=== PATIENT | female | born 1950 | race Caucasian/White ===

== ENCOUNTER 2022-08-06 19:06 | Observation (INO) | payer MEDICARE, SELFPAY ==
--- NOTE | ~2022-08-06 | XR_ITS ---
EXAMINATION: XR chest 1V DATE: 08/06/2022 20:37 INDICATION: Thoracic and lumbar compression fractures. TECHNIQUE: frontal view of the chest was obtained. COMPARISON: Chest radiograph dated 10/22/2015 FINDINGS: The lungs are clear with no focal airspace opacities, pulmonary edema, pleural effusion or pneumothor ax. The cardiomediastinal silhouette is normal. Change of prior vertebroplasty at L1. IMPRESSION: 1. No acute cardiopulmonary disease. Reviewed, dictated and finalized at location A. X RAY EQUIPMENT TESTER
--- NOTE | ~2022-08-06 | CT_ITS ---
EXAMINATION: CT thoracic lumbar wo con DATE: 08/06/2022 20:21 INDICATION: Multiple compression fractures presenting with lower back pain. TECHNIQUE: High resolution computed tomography (CT) of the thoracic and lumbar spine was performed wi thout intravenous contrast. Additional sagittal and coronal reconstructions were performed. Automated exposure control and iterative reconstruction technique were employed. The dose-length product was 6 17.82 mGy-cm. COMPARISON: None FINDINGS: Prominent thoracic kyphosis centered at chronic appearing T12 burst fracture with essentially complet e anterior to central vertebral body height loss and with 5 mm retropulsion which results in mild to moderate central canal stenosis. Vertebroplasty at the L1 burst fracture which depression of the post erior aspect of the superior endplate with 20% vertebral body height loss at this location as well as 3 mm retropulsion resulting in mild central canal stenosis. Chronic mild T11 compression fracture wi th 20% anterior vertebral body height loss and small Schmorl's node along the superior endplate. Manual Lathe Machinist david appearing superior central endplate compression with fractures with 40% central vertebral body he ight loss at L3 and 20% central vertebral body height loss at L5. 3 mm retrolisthesis L2 on L3 and 1- 2 mm retrolisthesis L3 on L4 resulting in mild central canal stenosis at both levels. Otherwise moder ate thoracic and lumbar spondylosis. Mild dependent atelectasis in both lungs. Heart size normal with atherosclerotic coronary artery calcific lesion. Moderate-sized sliding-type hiatal hernia. 1.7 cm c yst at the upper pole of the right kidney. IMPRESSION: 1. Multiple chronic appearing burst and compression fractures in the lumbar and lower thoracic spine as detailed above including prior vertebroplasty at L1. 2. Moderate thoracic and lumbar spondylosis. 3. Moderate-sized sliding-type hiatal hernia. Reviewed, dictated and finalized at location A. F OF SAFETY AND PROTECTION
--- NOTE | ~2022-08-06 | XR_ITS ---
EXAMINATION: XR pelvis 1-2V DATE: 08/06/2022 20:35 INDICATION: Back and posterior pelvic pain TECHNIQUE: An anteroposterior view of the pelvis was obtained. COMPARISON: None. FINDINGS: Bone alignment is normal. No fracture. Mild osteoarthritis at the bilateral hip and sacroiliac joints . Osteitis pubis. IMPRESSION: 1. 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 Reviewed, dictated and finalized at location A. RONMENTAL CONSULTANT
[2022-08-06 19:15] VITALS: BP 117/51; PULSE 83; RESP 18; TEMP 36.9; O2SAT 98
--- NOTE | 2022-08-06 20:03 | ECG_ITS ---
Measurements Intervals [place] Rate: 73 P: 26 UT: 176 QRS: 29 QRSD: 78 T: 46 QT: 386 QTc: 426 Interpretive Statements SINUS RHYTHM NO PREVIOUS ECG AVAILABLE FOR COMPARISON Electronically Signed On 08-07-2022 8:41:01 ADULT AND PEDIATRIC NEUROLOGIST by Maribel Ansari M.D.
[2022-08-06 20:53] LABS: Basophils Absolute Auto 0.1 K/mm3 (0.0-0.1); Basophils Percent Auto 0.9 % (0.2-1.2); Eosinophils Absolute Auto 0.1 K/mm3 (0-0.3); Eosinophils Percent Auto 1.9 % (0-4.4); Hematocrit 37.7 % (37.0-47.0); Hemoglobin 12.6 g/dL (12.0-15.0); Immature Granulocyte Absolute 0.02 K/mm3 (0.00-0.031); Immature Granulocyte Percent A 0.3 % (0-0.5); Lymphocytes Absolute Auto 0.97 K/mm3 (0.9-3.2); Lymphocytes Percent Auto 13.1 % (18.3-44.2); Mean Corpuscular HGB Conc 33.4 g/dl (32-36); Mean Corpuscular Hemoglobin 30.9 pg (26-34); Mean Corpuscular Volume 92.4 fl (80-100); Mean Platelet Volume 9.6 fl (7.4-10.4); Monocytes Absolute Auto 0.8 K/mm3 (0.1-0.6); Monocytes Percent Auto 10.1 % (2.6-8.5); Neutrophils Absolute Auto 5.5 K/mm3 (1.3-6.7); Neutrophils Percent Auto 73.7 % (45.5-73.1); Platelet Count Result 189 k/mm3 (150-375); Red Blood Count 4.08 M/mm3 (4.2-5.4); Red Cell Distribution Width 12.5 % (11.5-14.5); White Blood Count 7.4 K/mm3 (4.5-10.0)
[2022-08-06] MEDS: methocarbamoL 750 MG TABLET 1500 MG PO (20:55)
[2022-08-06 21:02] LABS: Alanine Aminotransferase 20 U/L (6-35); Alkaline Phosphatase 112 U/L (38-126); Anion Gap 5 mmol/L (8-16); Aspartate Amino Transferase 23 U/L (14-36); Bilirubin,Total 0.5 mg/dL (0.2-1.3); Blood Urea Nitrogen 16 mg/dL (7-17); Calcium 8.9 mg/dL (8.4-10.2); Carbon Dioxide 31 mmol/L (22-30); Chloride 97 mmol/L (98-107); Estimated CRCL calculation 40 ml/min; Estimated Glomerular Filt Rate > 60; Glucose 95 mg/dL (65-110); Magnesium 1.8 mg/dL (1.6-2.3); Potassium 3.8 mmol/L (3.4-5.0); Sodium 133 mmol/L (137-145)
[2022-08-06 21:17] LABS: Prothrombin Time 13.2 Seconds (11.1-14.7)
[2022-08-06 21:18] LABS: Partial Thromboplastin Time 24.2 SECONDS (22.3-36.8)
[2022-08-06 21:32] LABS: Influenza A QL RT-PCR Negative (Negative); Influenza B QL RT-PCR Negative (Negative); SARS-CoV-2 RNA PCR Negative
--- NOTE | 2022-08-06 22:37 | ED.GENADULT ---
HPI - General Adult General Chief complaint: Back Pain/Injury Stated complaint: SP BACK SURGERY T11/12 AND UNCONTROLLED PAIN History of Present Illness HPI narrative: This is a 72-year-old female presenting to ED with a chief complaint of back pain. Patient has had a relatively complicated course over the last month. She was originally seen at an outside hospital for back pain was found to have a compression fracture at T12. She underwent surgery and was then discharged to [facility]. Since she has been there she has had persistent back pain. Patient was placed in a TLSO brace. It does not fit well due to the patient's severe cervical curvature. Is causing the patient significant discomfort.The family went to visit the patient today and the patient was screaming in pain due to her back pain. The family then called 911 and brought the patient to our emergency room. The family are refusing to send their loved one back to that longterm. They will not take her home with them as they cannot manage her pain. patient denies weakness to the lower extremities, urinary retention, bowel incontinence, saddle anesthesia, or fever or trauma. The patient's neurosurgeon is Dr. Rainey. per the patient's family they will of are no longer agreeable to seeing Dr. Rainey by mutual accord. They are looking for a new neurosurgeon and treatment for the patient's pain. Family also notes that an incidental renal cyst was found on her last admission. Patient has not received a workup for it at this point. DNR/DNI. Related Data Allergies Allergy/AdvReac Type Severity Reaction Status Date / Time codeine Allergy Unknown Other Verified 08/06/22 19:20 ibuprofen Allergy Abdominal Verified 08/06/22 19:20 Pain iodine Allergy Abdominal Verified 08/06/22 19:20 Pain ASPIRIN (Generic Allergy) Allergy Unknown Y Uncoded 10/22/15 14:22 SALICYLATES Allergy Unknown Abdominal Uncoded 08/06/22 19:20 Pain Review of Systems Review of Systems: CONSTITUTIONAL: Denies night sweats. EYES: No eye pain ENT: Denies rhinorrhea CARDIOVASCULAR: Denies palpitations RESPIRATORY: Denies hemoptysis GASTROINTESTINAL: Denies hematemesis GENITOURINARY: Denies hematuria. SKIN: Denies rash MUSCULOSKELETAL: Denies myalgia. NEUROLOGIC: Denies weakness. PSYCHIATRIC: Denies delusions PMFSH Past Medical History Medical History (Updated 08/06/22 @ 23:53 by Abdirahman Renteria MD) Alzheimer disease Anxiety Hypothyroid Exam Narrative: During my physical exam I found 2 lidocaine patches that were dated July 06 on the patient's back. APPEARANCE: No apparent distress. Head: atraumatic. EYES: EOMI, NOSE: Atraumatic NECK: Trachea midline RESPIRATORY: No increased rate of breathing CARDIOVASCULAR: RRR, ABDOMINAL: Non-distended MUSCULOSKELETAl: patient has significant curvature of the spine. While due NEURO: Alert. Moving 4/4 extremities , no saddle anesthesia SKIN:: Warm, dry. Normal color PSYCHIATRIC: Normal affect Course Vital Signs Vital signs: Vital Signs Temperature 98.5 F 08/06/22 19:15 Pulse Rate 83 08/06/22 19:15 Respiratory Rate 18 08/06/22 19:15 Blood Pressure 117/51 L 08/06/22 19:15 Pulse Oximetry 98 08/06/22 19:15 Oxygen Delivery Room Air 08/06/22 19:15 Temperature 98.5 F 08/06/22 19:15 Pulse Rate 83 08/06/22 19:15 Respiratory Rate 18 08/06/22 19:15 Blood Pressure 117/51 L 08/06/22 19:15 Pulse Oximetry 98 08/06/22 19:15 Oxygen Delivery Room Air 08/06/22 19:15 Medical Decision Making MDM Narrative Medical decision making narrative: This is a 72-year-old female presenting with acute on chronic back pain with recent back surgery. No evidence of spinal cord compression at this time.Patient was at a longterm where her care was not up to the family's standards. The family refuses center back to longterm and they are unable to care for her at home. CT o
[2022-08-07] VITALS (7 sets, daily range): BP systolic 98–137; BP diastolic 49–68; PULSE 70–83; RESP 16–18; TEMP 36.5–36.7; O2SAT 94–100; BMI 19.1
--- NOTE | 2022-08-07 00:08 | PM.IMHP ---
H&P: HPI History of Present Illness Date/Time: 08/07/22 00:08 Chief Complaint: back pain Narrative: this is a 72-year-old female with past medical history significant for osteoporosis, patient with multiple vertebrae compressions, status post kyphoplasty, patient comes from rehabilitation facility with multiple complaints been mainly worsening back pain, leg pain bilaterally, no falls, no fevers, no rigors, no chills, Patient also with significant weight loss, unintentional, due to poor appetite. Patient tested negative for influenza A, influenza B and COVID-19. Patient has been admitted for further evaluation management and treatment. Review of Systems Review of Systems: Bilateral lower extremity leg pain, back pain, unintentional weight loss. Poor appetite. Constitutional: Constitutional: Denies chills, Denies fever(s), Denies malaise, Denies night sweats, Reports poor appetite and Reports weight loss Eyes: Eyes: Denies change in vision ENT: Denies dysphagia, Denies vertigo, Denies dizziness, Denies odynophagia and Denies disequilibrium Cardiovascular: Cardiovascular: Denies chest pain, Denies syncope and Denies lightheadedness Respiratory: Respiratory: Denies chest congestion, Denies cough, Denies pain on inspiration and Denies dyspnea Gastrointestinal: Gastrointestinal: Denies abdominal pain, Denies dyspepsia, Denies heartburn, Denies nausea and Denies vomiting Genitourinary: Genitourinary: Reports no additional female genitourinary complaints and Reports as per HPI Musculoskeletal: Musculoskeletal: Reports back pain, Reports muscle cramps and Reports muscle weakness Integumentary/Breasts: Skin/Breast: Denies rash Neurologic: Denies vertigo, Denies dizziness, Denies focal weakness and Denies Sensory deficit (Neuro) Psychiatric: Psychiatric: Reports no additional psychiatric complaints and Reports as per HPI Endocrine: Endocrine: Denies cold intolerance, Denies flushing, Denies heat intolerance, Denies polyphagia, Denies polydipsia and Denies palpitations Hematologic/Lymphatic: Hematologic/Lymphatic: Reports no additional hematologic/lymphatic complaints and Reports as per HPI Allergic/Immunologic: Allergic/Immunologic: Reports no additional allergic/immunologic complaints and Reports as per HPI PMFSH Past Medical History Medical History (Updated 08/07/22 @ 03:01 by Celeste Iyer MD) Alzheimer disease Anxiety Hypothyroid Social History Social History Smoking status: Former smoker Substance use type: does not use Lack of Transportation: No Lack of Food: Never True Current Housing: Decline to Answer Concerned About Future Housing: No Difficulty Paying Gas/Electric Bills: No Difficulty Paying for Meds: No Currently Unemployed: No Education: Decline to Answer Difficulty w/ Childcare or Family Care: No Spiritual care concerns: No Meds Home Medications and Allergies Home Medications Medication Instructions Recorded Confirmed Type acetaminophen 650 mg tablet 650 mg PO Q6H PRN Pain 08/07/22 08/07/22 History calcium carbonate 500 mg calcium 500 mg PO TID PRN Heartburn 08/07/22 08/07/22 History (1,250 mg) chewable tablet carboxymethylcellulose sodium 1 % 2 drp EACH EYE BID PRN dryness 08/07/22 08/07/22 History eye liquid gel drops (Lubricant Dry Eye Relief) donepezil 10 mg tablet 10 mg PO DAILY 08/07/22 08/07/22 History levothyroxine 50 mcg tablet 50 mcg PO DAILY 08/07/22 08/07/22 History pravastatin 20 mg tablet 20 mg PO HS 08/07/22 08/07/22 History sertraline 100 mg tablet 100 mg PO DAILY 08/07/22 08/07/22 History sodium chloride 0.65 % nasal spray 2 spray intranasal Q2H PRN dryness 08/07/22 08/07/22 History aerosol ([place] Nasal) spironolactone 100 mg tablet 100 mg PO DAILY 08/07/22 08/07/22 History tramadol 50 mg tablet 50 mg PO Q8H PRN Pain 08/07/22 08/07/22 History Allergies Allergy/AdvReac Type Severity Reaction Status Date / Time codeine All
[2022-08-07] MEDS: KETOROLAC 15 MG/ML VIAL (*BKC) IV PUSH (00:31)
[2022-08-07] MEDS: FAMOTIDINE 20 MG/2 ML VIAL IV PUSH (00:31)
[2022-08-07] MEDS: HYDROcodone/acetaminophen (*CRX) 5-325 MG TABLET 1 TAB PO (00:31)
[2022-08-07] MEDS: LACTATED RINGERS 1,000 ML 75 ML IV CONT (00:32)
--- NOTE | 2022-08-07 01:37 | PC.NURSE ---
received report from ED MONROE Martinez
--- NOTE | 2022-08-07 01:50 | PC.NURSE ---
This patient, Ilene Ugalde, was admitted to [facility] Room 306-01. Patient/family oriented to hospital policies and general routines including ID bracelet, bed and alarms, visiting hours, pain management, procedures, bathroom and other care routines, personal items, smoking policy, room service/diet, and visiting hours. Information on how to activate the Rapid Response Team has been discussed. Patient/Family are encouraged to report perceived risks to care and to ask questions if they do not understand what they are told or what they should do.arrived at 150
[2022-08-07 02:23] LABS: Add Urine Microscopic? YES; Appearance Urine Clear (Clear); Bilirubin Urine 1+ (Negative); Blood Urine Negative (Negative); Color Urine Yellow (Yellow); Glucose Urine UA Negative (Negative); Ketones Urine Trace mg/dL (Negative); Leukocyte Esterase Ur Negative LEU/UL (Negative); Nitrate Urine Negative (Negative); Protein Urine Negative (Negative); Specific Grav Ur 1.025 (1.001-1.035); Urobilinogen Urine 0.2 mg/dL (<2.0); pH Urine 5.5 (5.0-9.0)
[2022-08-07 02:27] LABS: Mucus Urine Rare /lpf; Squamous Epithelial Cell Urine Few /hpf (Few)
--- NOTE | 2022-08-07 02:52 | PC.NURSE ---
called MD Davidson for sleep aide for pt, pt requesting sleep aide for difficulty sleeping, trazodone 50 mg po once ordered per MD Iyer.
[2022-08-07] MEDS: traZODone HCL 50 MG TABLET PO ×2 (03:08→20:35)
--- NOTE | 2022-08-07 03:16 | PC.NURSE ---
ua collected and sent to lab for analysis
[2022-08-07 03:34] LABS: Influenza A QL RT-PCR Negative (Negative); Influenza B QL RT-PCR Negative (Negative); SARS-CoV-2 RNA PCR Negative
--- NOTE | 2022-08-07 07:56 | PC.NURSE ---
Medication reconciliation was not finished during admission process.
[2022-08-07] MEDS: SPIRONOLACTONE 50 MG TABLET 100 MG PO (09:22)
[2022-08-07] MEDS: DONEPEZIL HCL 10 MG TABLET PO (09:22)
[2022-08-07] MEDS: LEVOTHYROXINE SODIUM 50 MCG TABLET PO (09:22)
[2022-08-07] MEDS: SERTRALINE HCL 50 MG TABLET 100 MG PO (09:22)
--- NOTE | 2022-08-07 11:42 | PM.IMPN ---
Progress Note: A&P Assessment and Plan (1) Compression fracture of vertebrae: Code(s): M48.50XA - Collapsed vertebra, not elsewhere classified, site unspecified, initial encounter for fracture Status: Acute Assessment and Plan: Status post kyphoplasty 07/26/22 in [place] -no signs of infection on labs, vitals or imaging -no signs of cord compression -no acute fracture -pt has brace at bedside but says it causes significant pain -spoke with NSGY about plan of care. He is going to review images and call me back with a plan. Likely f/u outpt -PT/OT to evaluate. If safe to go home she can d/c today if she needs rehab we will need auth. (2) Back pain: Code(s): M54.9 - Dorsalgia, unspecified Status: Acute Assessment and Plan: controlled 11/29 at this time -continue PRN pain mediications (3) Alzheimer disease: Code(s): G30.9 - Alzheimer's disease, unspecified; F02.80 - Dementia in other diseases classified elsewhere, unspecified severity, without behavioral disturbance, psychotic disturbance, mood disturbance, and anxiety Status: Acute Assessment and Plan: appeared mild on exam -continue donepezil (4) Osteoporosis: Code(s): M81.0 - Age-related osteoporosis without current pathological fracture Status: Acute Assessment and Plan: f/u outpt with bone scans (5) Systolic murmur: Code(s): R01.1 - Cardiac murmur, unspecified Status: Acute Assessment and Plan: Noted on exam, doesn't seem like an aggressive murmur but should get an echo outpt -no signs of infection, endocarditis seems very unlikely -spoke with daughter about recommendations of outpt echo and talk to her Pcp Time Spent With Patient Time with patient: 25 - 35 minutes Subjective Date/time seen: 08/07/22 11:42 Interval history: Pt is a 72-year-old female here with back pain. Patient states that she had a kyphoplasty July 26 in [place] and has a brace and was at rehab. She states that the pain is okay when she is at rest but when she is walking it is very severe. She also thinks the brace does not fit well in maybe she needs a new 1. Family at bedside who also states that the care at the rehab center may have been sub-par. patient denies weakness of the lower extremities, tingling, bowel or bladder incontinence. she has not gotten up and walked yet today. no history of murmur that they know of Review of Systems Review of Systems: All systems reviewed & are unremarkable except as noted in HPI and below Exam Narrative: General: Well developed well nourished patient in NAD HEENT: normocephalic Neck: supple Neuro: Alert and coroperative CV:RRR with 2/6 systolic murmur Resp:CTA Abd: Soft, non distended. No pain to palpation. Positive bowel sounds Extremities: No swelling, erythema, or pain to palpation. strength 5/5 in the lower extremities. Objective Data Vital Signs Vital Signs: Vital Signs - 24 hr 08/06/22 19:15 08/07/22 02:09 08/07/22 02:30 Temperature 98.5 F 97.7 F Pulse Rate 83 83 70 Respiratory Rate 18 18 16 Blood Pressure 117/51 L 117/57 L Pulse Oximetry 98 98 98 Oxygen Delivery Room Air Room Air 08/07/22 02:54 08/07/22 06:00 Temperature 97.7 F 98.1 F Pulse Rate 70 75 Respiratory Rate 16 16 Blood Pressure 117/57 L 137/68 Pulse Oximetry 98 100 Oxygen Delivery Room Air Intake/Output Intake/Output: Intake & Output 08/04/22 08/05/22 08/06/22 08/07/22 23:59 23:59 23:59 23:59 Intake Total 440 Balance 440 Meds/Results Medications: Active Medications Generic Name Dose Route Start Last Admin Trade Name Freq PRN Reason Stop Dose Admin Artificial Tears 2 drop 08/07/22 08:20 Artificial Tears Ophth Soln 15 Ml Bottle EACH EYE TID PRN dryness Calcium Carbonate 500 mg 08/07/22 08:20 Calcium Carbonate (Tums) 500 Mg (200 Mg Elemental) PO TID PRN Heartbur
[2022-08-07] MEDS: MENTHOL 10% / METHYL SALICYLATE 15% 57 GM TUBE 1 APPLIC TOPICAL (14:55)
[2022-08-07] MEDS: traMADol HCL (*CRX) 50 MG TABLET PO (17:42)
--- NOTE | 2022-08-07 20:17 | PC.NURSE ---
pt is agitated informed daughter about behavior, calling for medication for agitation now.
[2022-08-07] MEDS: PRAVASTATIN SODIUM 20 MG TABLET PO (20:36)
--- NOTE | 2022-08-07 21:10 | PC.NURSE ---
Jann NEWBY ordered trazodone 50 mg for pt, pt calm at this time
--- NOTE | 2022-08-07 21:42 | PC.NURSE ---
pt remains agitated called ODIN Forte and Md Iyer for possible once dose of medication for agitation. Md Iyer ordered Haldol 5 mg IM once r.t agitation
[2022-08-07] MEDS: HALOPERIDOL LACTATE 5 MG/ML VIAL IM (21:54)
--- NOTE | 2022-08-07 23:10 | PC.NURSE ---
pt c/o pain, too early for tramadol, NNO 1000mg tylenol po once per MD Iyer
[2022-08-07] MEDS: ACETAMINOPHEN 500 MG TABLET 1000 MG PO (23:25)
[2022-08-08] MEDS: traMADol HCL (*CRX) 50 MG TABLET PO (04:03)
[2022-08-08] MEDS: LEVOTHYROXINE SODIUM 50 MCG TABLET PO (05:13)
[2022-08-08 06:00] VITALS: BP 127/70; PULSE 73; RESP 16; TEMP 36.2; O2SAT 95
[2022-08-08] MEDS: SPIRONOLACTONE 50 MG TABLET 100 MG PO (08:59)
[2022-08-08] MEDS: DONEPEZIL HCL 10 MG TABLET PO (08:59)
[2022-08-08] MEDS: SERTRALINE HCL 50 MG TABLET 100 MG PO (08:59)
[2022-08-08] MEDS: MORPHINE SULFATE (*CRX) 2 MG/ML INJ 1 MG IV PUSH (09:52)
[2022-08-08 11:13] LABS: Anion Gap 5 mmol/L (8-16); Blood Urea Nitrogen 8 mg/dL (7-17); Calcium 8.8 mg/dL (8.4-10.2); Carbon Dioxide 29 mmol/L (22-30); Chloride 102 mmol/L (98-107); Estimated CRCL calculation 45 ml/min; Estimated Glomerular Filt Rate > 60; Glucose 119 mg/dL (65-110); Potassium 4.2 mmol/L (3.4-5.0); Sodium 136 mmol/L (137-145)
--- NOTE | 2022-08-08 12:09 | PM.IMPN ---
Progress Note: A&P Assessment and Plan (1) Compression fracture of vertebrae: Code(s): M48.50XA - Collapsed vertebra, not elsewhere classified, site unspecified, initial encounter for fracture Status: Acute Assessment and Plan: Status post kyphoplasty 07/26/22 in [place] -no signs of infection on labs, vitals or imaging -no signs of cord compression -no acute fracture on imagine. -pt has brace at bedside but says it causes significant pain and does not fit appropriately. -neurosurgery reviewed imaging and will follow up outpatient next week. -PT/OT to evaluate. -08/08 patient still in significant pain. Change regimen as below. (2) Back pain: Code(s): M54.9 - Dorsalgia, unspecified Status: Acute Assessment and Plan: Still in significant pain today. change to scheduled acetaminophen 1g Q8 hours, PRN oxycodone IR 2.5 mg Q4 hours, and lidoderm 5% patch daily (3) Alzheimer disease: Code(s): G30.9 - Alzheimer's disease, unspecified; F02.80 - Dementia in other diseases classified elsewhere, unspecified severity, without behavioral disturbance, psychotic disturbance, mood disturbance, and anxiety Status: Acute Assessment and Plan: appeared mild on exam -continue donepezil (4) Osteoporosis: Code(s): M81.0 - Age-related osteoporosis without current pathological fracture Status: Chronic Assessment and Plan: f/u outpt with bone scans (5) Systolic murmur: Code(s): R01.1 - Cardiac murmur, unspecified Status: Acute Assessment and Plan: Noted on exam, doesn't seem like an aggressive murmur but should get an echo outpt -no signs of infection, endocarditis seems very unlikely -spoke with daughter about recommendations of outpt echo and talk to her Pcp Plan CODE STATUS: DNR Disposition: observation discharge plan: pending PT/OT evaluation Time Spent With Patient Time: All patient and family questions answered. Time with patient: 15 - 25 minutes Subjective Date/time seen: 08/08/22 12:09 Interval history: pain 7/10, worse on right lower back. No BM since before admission and the exact date is unknown. She does not think the tramadol helps her pain. Her daughter is at bedside and concerned about the fit of the patient's brace. She also thinks the patient holds her urine because the bedpan is painful. Review of Systems Review of Systems: All systems reviewed & are unremarkable except as noted in HPI and below Exam Narrative: GENERAL: No acute distress. Frail, older adult female lying in bed. HEENT: Normocephalic. Sclera non-icteric. Pupils equal and round. Hearing grossly intact. moist mucous membranes NECK: Supple. No JVD RESPIRATORY: RR regular and unlabored. Lung sounds clear to auscultation bilaterally. CARDIO: Normal S1 and S2 regular rate and rhythm. No murmurs, gallops, or rubs. GI: soft, soft and nontender to palpation, bowel sounds present. SPINE: tenderness to palpation right side of L3-4. Moderate kyphosis. SKIN: no rashes or lesions. Fair, warm and dry. Fair turgor. EXTREMITIES: Grossly normal ROM all extremities. no edema, redness or tenderness. dorsalis pedis pulses +2. NEURO: No focal deficits. Sensation intact bilaterally. Muscle strength generalized weakness throughout BUE 4/5, BLE 3-4/5, cranial nerves 2-12 grossly intact. Objective Data Vital Signs Vital Signs: Vital Signs - 24 hr 08/07/22 14:00 08/07/22 19:47 08/07/22 22:00 Temperature 97.7 F 97.7 F Pulse Rate 76 72 Respiratory Rate 16 18 Blood Pressure 112/58 L 98/49 L Pulse Oximetry 97 97 94 Oxygen Delivery Room Air 08/08/22 06:00 08/08/22 09:55 Temperature 97.2 F L Pulse Rate 73 Respiratory Rate 16 Blood Pressure 127/70 Pulse Oximetry 95 Oxygen Delivery Room Air Intake/Output Intake/Output: Intake & Output 08/05/22 08/06/22 08/07/22 08/08/22 23:59 23:59 23:59 23:59 Intake Total
[2022-08-08 14:00] VITALS: BP 142/72; PULSE 79; RESP 16; TEMP 36.3; O2SAT 97
[2022-08-08] MEDS: ACETAMINOPHEN 500 MG TABLET 1000 MG PO ×2 (14:38→22:03)
[2022-08-08] MEDS: LIDOCAINE 5% PATCH 1 PATCH TRANSDERM (14:38)
[2022-08-08] MEDS: polyethylene glycoL 3350 17 GM POWD.PACK PO (14:38)
[2022-08-08 19:49] VITALS: O2SAT 97
[2022-08-08] MEDS: PRAVASTATIN SODIUM 20 MG TABLET PO (20:37)
[2022-08-08] MEDS: DOCUSATE SODIUM 100 MG CAPSULE PO (20:37)
[2022-08-08] MEDS: oxyCODONE HCL (*CRX) 2.5 MG TAB IR PO (20:37)
[2022-08-08 21:56] VITALS: BP 120/53; PULSE 75; RESP 16; TEMP 36.9; O2SAT 96
[2022-08-09] MEDS: oxyCODONE HCL (*CRX) 2.5 MG TAB IR PO ×3 (04:01→21:14)
[2022-08-09] MEDS: LEVOTHYROXINE SODIUM 50 MCG TABLET PO (05:22)
[2022-08-09] MEDS: ACETAMINOPHEN 500 MG TABLET 1000 MG PO ×3 (05:22→21:10)
[2022-08-09 06:00] VITALS: BP 104/50; PULSE 64; RESP 16; TEMP 36.6; O2SAT 97
--- NOTE | 2022-08-09 06:28 | PC.NURSE ---
Informed MD Iyer pt pulled out IV, ok to leave out at this time.
[2022-08-09 06:43] LABS: Hematocrit 36.4 % (37.0-47.0); Hemoglobin 11.9 g/dL (12.0-15.0); Mean Corpuscular HGB Conc 32.7 g/dl (32-36); Mean Corpuscular Hemoglobin 30.3 pg (26-34); Mean Corpuscular Volume 92.6 fl (80-100); Mean Platelet Volume 9.7 fl (7.4-10.4); Platelet Count Result 185 k/mm3 (150-375); Red Blood Count 3.93 M/mm3 (4.2-5.4); Red Cell Distribution Width 12.8 % (11.5-14.5); White Blood Count 5.8 K/mm3 (4.5-10.0)
[2022-08-09 06:46] LABS: Anion Gap 4 mmol/L (8-16); Blood Urea Nitrogen 8 mg/dL (7-17); Calcium 8.6 mg/dL (8.4-10.2); Carbon Dioxide 31 mmol/L (22-30); Chloride 101 mmol/L (98-107); Estimated CRCL calculation 45 ml/min; Estimated Glomerular Filt Rate > 60; Glucose 94 mg/dL (65-110); Potassium 3.9 mmol/L (3.4-5.0); Sodium 136 mmol/L (137-145)
[2022-08-09] MEDS: LIDOCAINE 5% PATCH 1 PATCH TRANSDERM (10:45)
[2022-08-09] MEDS: SERTRALINE HCL 50 MG TABLET 100 MG PO (10:49)
[2022-08-09] MEDS: SPIRONOLACTONE 50 MG TABLET 100 MG PO (10:49)
[2022-08-09] MEDS: DONEPEZIL HCL 10 MG TABLET PO (10:50)
[2022-08-09] MEDS: polyethylene glycoL 3350 17 GM POWD.PACK PO (10:50)
[2022-08-09] MEDS: DOCUSATE SODIUM 100 MG CAPSULE PO ×2 (10:51→21:09)
--- NOTE | 2022-08-09 11:57 | PCOTNOTE ---
Attempted to see pt. Hospitalist present and speaking with pt. and family. Nursing updated and aware. Following.
--- NOTE | 2022-08-09 12:20 | PM.IMPN ---
Progress Note: A&P Assessment and Plan (1) Compression fracture of vertebrae: Qualifiers: Encounter type: subsequent encounter Fracture of vertebra location: thoracic Thoracic vertebra fracture level: T12 Code(s): M48.50XA - Collapsed vertebra, not elsewhere classified, site unspecified, initial encounter for fracture Status: Acute Assessment and Plan: Status post kyphoplasty 07/26/22 in [place] -no signs of infection on labs, vitals or imaging -no signs of cord compression -no acute fracture on imagine. -pt has brace at bedside but says it causes significant pain and does not fit appropriately. -neurosurgery reviewed imaging and will follow up outpatient next week. -PT/OT to evaluate. -08/08 patient still in significant pain. Change regimen as below. -08/09 family concerned about non-fitting brace. Will attempt to call office for recommendations. (2) Back pain: Qualifiers: Back pain location: thoracic back pain Chronicity: unspecified Back pain laterality: left Qualified Code(s): M54.6 - Pain in thoracic spine Code(s): M54.9 - Dorsalgia, unspecified Status: Acute Assessment and Plan: Still in significant pain today. change to scheduled acetaminophen 1g Q8 hours, PRN oxycodone IR 2.5 mg Q4 hours, and lidoderm 5% patch daily (3) Alzheimer disease: Code(s): G30.9 - Alzheimer's disease, unspecified; F02.80 - Dementia in other diseases classified elsewhere, unspecified severity, without behavioral disturbance, psychotic disturbance, mood disturbance, and anxiety Status: Acute Assessment and Plan: appeared mild on exam -continue donepezil -add melatonin. Recommend oxycodone PRN prior to bedtime -consider adding mirtazapine for sleep and anorexia (4) Osteoporosis: Code(s): M81.0 - Age-related osteoporosis without current pathological fracture Status: Chronic Assessment and Plan: She will need outpatient dexa scans (5) Systolic murmur: Code(s): R01.1 - Cardiac murmur, unspecified Status: Acute Assessment and Plan: Noted on exam, doesn't seem like an aggressive murmur but should get an echo outpt -no signs of infection, endocarditis seems very unlikely -spoke with daughter about recommendations of outpt echo and talk to her Pcp Plan CODE STATUS: DNR Disposition: observation discharge plan: pending PT/OT evaluation Time Spent With Patient Time: All family and patient questsions answered Time with patient: 15 - 25 minutes Subjective Date/time seen: 08/09/22 12:20 She thinks her pain is better controlled on current medications, but it is still present. She was able to work with PT today (see PT notes). She still has not had a BM, but no abd pain, N/V and she is passing flatus. Her family is concerned about her dementia worsening due to signs of sundowning. She is in-between PCPs and they are hoping to get a new neurologist. Review of Systems Review of Systems: All systems reviewed & are unremarkable except as noted in HPI and below Exam Narrative: GENERAL: No acute distress. Frail, older adult female lying in bed. HEENT: Normocephalic. Sclera non-icteric. Pupils equal and round. Hearing grossly intact. moist mucous membranes NECK: No JVD RESPIRATORY: RR regular and unlabored. Lung sounds clear to auscultation bilaterally. CARDIO: Normal S1 and S2 regular rate and rhythm. No murmurs, gallops, or rubs. GI: soft, soft and nontender to palpation, bowel sounds present. SPINE: Moderate kyphosis. No trauma SKIN: no rashes or lesions. Fair, warm and dry. Fair turgor. EXTREMITIES: Grossly normal ROM all extremities. no edema, redness or tenderness. dorsalis pedis pulses +2. NEURO: No focal deficits. Sensation intact bilaterally. Muscle strength generalized weakness throughout BLE 4/5, cranial nerves 2-12 grossly intact. Objective Data Vital Signs Vital Signs: Vital Signs - 24 hr
[2022-08-09 14:00] VITALS: BP 115/68; PULSE 90; RESP 18; TEMP 36.5; O2SAT 97
[2022-08-09 14:28] VITALS: BMI 19.1
[2022-08-09] MEDS: PRAVASTATIN SODIUM 20 MG TABLET PO (21:10)
[2022-08-09] MEDS: MELATONIN 5 MG TABLET PO (21:10)
[2022-08-09 21:47] VITALS: BP 104/59; PULSE 88; RESP 16; TEMP 36.6; O2SAT 95
[2022-08-10 05:19] VITALS: BP 136/59; PULSE 72; RESP 16; TEMP 36.4; O2SAT 100
[2022-08-10] MEDS: ACETAMINOPHEN 500 MG TABLET 1000 MG PO (06:04)
[2022-08-10] MEDS: LEVOTHYROXINE SODIUM 50 MCG TABLET PO (06:04)
[2022-08-10] MEDS: LIDOCAINE 5% PATCH 1 PATCH TRANSDERM (09:54)
[2022-08-10] MEDS: SPIRONOLACTONE 50 MG TABLET 100 MG PO (09:54)
[2022-08-10] MEDS: SERTRALINE HCL 50 MG TABLET 100 MG PO (09:55)
[2022-08-10] MEDS: DONEPEZIL HCL 10 MG TABLET PO (09:55)
[2022-08-10] MEDS: DOCUSATE SODIUM 100 MG CAPSULE PO (09:55)
[2022-08-10] MEDS: polyethylene glycoL 3350 17 GM POWD.PACK PO (10:01)
--- NOTE | 2022-08-10 13:05 | PM.IMPN ---
Progress Note: A&P Assessment and Plan (1) Compression fracture of vertebrae: Qualifiers: Encounter type: subsequent encounter Fracture of vertebra location: thoracic Thoracic vertebra fracture level: T12 Code(s): M48.50XA - Collapsed vertebra, not elsewhere classified, site unspecified, initial encounter for fracture Status: Acute Assessment and Plan: Status post kyphoplasty 07/26/22 in [place] -no signs of infection on labs, vitals or imaging -no signs of cord compression -no acute fracture on imagine. -pt has brace at bedside but says it causes significant pain and does not fit appropriately. -neurosurgery reviewed imaging and will follow up outpatient next week. -PT/OT to evaluate. -08/08 patient still in significant pain. Change regimen as below. -08/09 family concerned about non-fitting brace. Will attempt to call office for recommendations. (2) Back pain: Qualifiers: Back pain laterality: left Back pain location: thoracic back pain Chronicity: unspecified Qualified Code(s): M54.6 - Pain in thoracic spine Code(s): M54.9 - Dorsalgia, unspecified Status: Acute Assessment and Plan: Still in significant pain today. change to scheduled acetaminophen 1g Q8 hours, PRN oxycodone IR 2.5 mg Q4 hours, and lidoderm 5% patch daily (3) Alzheimer disease: Code(s): G30.9 - Alzheimer's disease, unspecified; F02.80 - Dementia in other diseases classified elsewhere, unspecified severity, without behavioral disturbance, psychotic disturbance, mood disturbance, and anxiety Status: Acute Assessment and Plan: appeared mild on exam -continue donepezil -add melatonin. Recommend oxycodone PRN prior to bedtime -consider adding mirtazapine for sleep and anorexia (4) Osteoporosis: Code(s): M81.0 - Age-related osteoporosis without current pathological fracture Status: Chronic Assessment and Plan: She will need outpatient dexa scans (5) Systolic murmur: Code(s): R01.1 - Cardiac murmur, unspecified Status: Acute Assessment and Plan: Noted on exam, doesn't seem like an aggressive murmur but should get an echo outpt -no signs of infection, endocarditis seems very unlikely -spoke with daughter about recommendations of outpt echo and talk to her Pcp Plan CODE STATUS: DNR Disposition: observation discharge plan: pending PT/OT evaluation Subjective Date/time seen: 08/10/22 13:05 Exam Narrative: GENERAL: No acute distress. Frail, older adult female lying in bed. HEENT: Normocephalic. Sclera non-icteric. Pupils equal and round. Hearing grossly intact. moist mucous membranes NECK: No JVD RESPIRATORY: RR regular and unlabored. Lung sounds clear to auscultation bilaterally. CARDIO: Normal S1 and S2 regular rate and rhythm. No murmurs, gallops, or rubs. GI: soft, soft and nontender to palpation, bowel sounds present. SPINE: Moderate kyphosis. No trauma SKIN: no rashes or lesions. Fair, warm and dry. Fair turgor. EXTREMITIES: Grossly normal ROM all extremities. no edema, redness or tenderness. dorsalis pedis pulses +2. NEURO: No focal deficits. Sensation intact bilaterally. Muscle strength generalized weakness throughout BLE 4/5, cranial nerves 2-12 grossly intact. Objective Data Vital Signs Vital Signs: Vital Signs - 24 hr 08/09/22 14:00 08/09/22 21:47 08/09/22 20:00 Temperature 97.7 F 97.8 F Pulse Rate 90 88 Respiratory Rate 18 16 Blood Pressure 115/68 104/59 L Pulse Oximetry 97 95 Oxygen Delivery Room Air 08/10/22 05:19 Temperature 97.6 F Pulse Rate 72 Respiratory Rate 16 Blood Pressure 136/59 L Pulse Oximetry 100 Oxygen Delivery Intake/Output Intake/Output: Intake & Output 08/07/22 08/08/22 08/09/22 08/10/22 23:59 23:59 23:59 23:59 Intake Total 1320 1340 1000 360 Output Total 792 035 3924 Balance 301 851 1404 -690 Meds/Results Radiology Results: ITS Impressio
--- NOTE | 2022-08-10 13:58 | PM.DS ---
DS: Admitting Diagnosis Discharge Date 08/10/2022 1358 Admitting Diagnosis Back pain Alzheimer disease Osteoporosis Compression fracture of vertebrae DS: Discharge Diagnosis Discharge Diagnosis (1) Compression fracture of vertebrae: Qualifiers: Encounter type: subsequent encounter Fracture of vertebra location: thoracic Thoracic vertebra fracture level: T12 Code(s): M48.50XA - Collapsed vertebra, not elsewhere classified, site unspecified, initial encounter for fracture Status: Acute Assessment and Plan: ?Status post kyphoplasty 07/26/22 in [place] -no signs of infection on labs, vitals or imaging -no signs of cord compression -no acute fracture on imagine. -pt reported her brace causes significant pain and does not fit appropriately. -neurosurgery reviewed imaging and will follow up outpatient next week. -PT/OT consulted -08/08 patient with significant pain. Analgesic regimen changed -08/09 family concerned about non-fitting brace. Neurosurgery contacted and recommended alternative brace, which was fit by company. (2) Back pain: Qualifiers: Back pain laterality: left Back pain location: thoracic back pain Chronicity: unspecified Qualified Code(s): M54.6 - Pain in thoracic spine Code(s): M54.9 - Dorsalgia, unspecified Status: Acute Assessment and Plan: Still in significant pain. Tramadol stopped. change to scheduled acetaminophen 1g Q8 hours, PRN oxycodone IR 2.5 mg Q4 hours, and lidoderm 5% patch daily 08/10 oxycodone increased 5 mg Q4 hours PRN (3) Alzheimer disease: Code(s): G30.9 - Alzheimer's disease, unspecified; F02.80 - Dementia in other diseases classified elsewhere, unspecified severity, without behavioral disturbance, psychotic disturbance, mood disturbance, and anxiety Status: Acute Assessment and Plan: appeared mild on exam -continued donepezil -added melatonin. Recommend oxycodone PRN prior to bedtime -consider adding mirtazapine for sleep and anorexia. Will defer to PCP. Discussed with family. (4) Osteoporosis: Code(s): M81.0 - Age-related osteoporosis without current pathological fracture Status: Chronic Assessment and Plan: She will need outpatient dexa scan (5) Systolic murmur: Code(s): R01.1 - Cardiac murmur, unspecified Status: Acute Assessment and Plan: Noted on exam, doesn't seem like an aggressive murmur but should get an echo outpt -no signs of infection, endocarditis very unlikely -spoke with daughter about recommendations of outpt echo and talk to her Pcp DS: Summary Hospital Course Reason for hospitalization: back pain Hospital Course: Ilene Ugalde is a 72-year-old female with osteoporosis. Patient was diagnosed with multiple vertebrae compressions, was treated with kyphoplasty. She presented to the ED from rehab facility with multiple complaints, including worsening back pain and leg pain bilaterally. She denied recent falls, fevers, rigors, or chills,?Her daughter reported significant, unintentional weight loss due to poor appetite.? She was negative for influenza A/B and COVID-19.? She was admitted for pain control and neurosurgery evaluation. Pain regimen was adjusted for optimal pain control. Tramadol was stopped. Scheduled acetaminophen 1 gram Q8 hours, PRN oxycodone 5 mg PO Q4 hours and lidoderm patch were initiated with some improvement. Bowel regimen was added. PT/OT were consulted for evaluation. Neurosurgery was consulted for evaluation, they reviewed films and recommended outpatient follow-up. The office was consulted for new brace recommendations, given the patient's discomfort with her previous brace. A new brace was fitted. The patient was able to ambulate with therapy and home health was recommended. Family was concerned about the patient's presumed worsening dementia, therefore, they opted to send the patient to SNF. She was discharged to SNF in [place]
[2022-08-10 14:00] VITALS: BP 131/70; PULSE 77; RESP 16; TEMP 36.9; O2SAT 98
[2022-08-10 15:20] LABS: EDCOVIDSCREEN Negative (Negative)
[2022-08-10] MEDS: oxyCODONE HCL (*CRX) 5 MG TAB IR (19:30)
--- NOTE | 2022-08-10 19:30 | PC.NURSE ---
Roxicodone 5mg administer by MONROE Quezada @ 1930. Medication pulled in Pyxis and verified by MONROE Barker. Due to patient being discharged, medication was unable to be scanned into OCT.
--- NOTE | 2022-08-27 14:05 | P.PNNEUSUR_ITS ---
Progress Note: A&P Assessment and Plan (1) Compression fracture of vertebrae: Qualifiers: Encounter type: subsequent encounter Fracture of vertebra location: thoracic Thoracic vertebra fracture level: T12 Code(s): M48.50XA - Collapsed vertebra, not elsewhere classified, site unspecified, initial encounter for fracture Status: Acute Assessment and Plan: I did discuss with the patient and her daughter the nature of osteoporotic fractures as well as listened to their time at [facility] and the management plan made there. I did discuss that I would like to still see them outpatient so I may provide them follow-up, make sure her brace is adequate and show them the patient's images, etc. Plan patient will follow-up with me in clinic. Subjective Date/time seen: 08/10/2022 Interval history: This is a late entry progress note submitted on Aug 27, 2022 to reconcile the Neurosurgery consult request when this patient was admitted. 72F osteoporosis dementia, painful osteoporotic fracture originally assessed at [facility] by Dr. Rainey. I was called regarding this patient when she was transferred from a SNF to [place] for back pain. I made plans to see her outpatient. However, I did briefly see her inpatient while rounding on Aug 10, 2022. Objective Data Meds/Results Radiology Results: ITS Impressions Chest X-Ray 08/06/22 20:41 IMPRESSION: 1. No acute cardiopulmonary disease. Pelvis X-Ray 08/06/22 20:43 IMPRESSION: 1. 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 Thoracic/Lumbar Spine CT 08/06/22 20:54 IMPRESSION: 1. Multiple chronic appearing burst and compression fractures in the lumbar and lower thoracic spine as detailed above including prior vertebroplasty at L1. 2. Moderate thoracic and lumbar spondylosis. 3. Moderate-sized sliding-type hiatal hernia.
== END 2022-08-10 20:23 ==
LOC: ANHED 23:53 → ANH3MEDSUR 08-07 01:38
PROVIDERS: Nurse Practitioner Family; Admitting Provider Internal Medicine; Emergency Provider Emergency Medicine; PCP Family Medicine; Visit Provider Chiropractor
DX: M48.50XA Collapsed vertebra, not elsewhere classified, site unspecified, initial encounter for fracture (principal); K44.9 Diaphragmatic hernia without obstruction or gangrene; M54.6 Pain in thoracic spine; M79.605 Pain in left leg; M79.604 Pain in right leg; N28.1 Cyst of kidney, acquired; G30.9 Alzheimer's disease, unspecified; F41.9 Anxiety disorder, unspecified; Z20.822 Contact with and (suspected) exposure to COVID-19; E03.9 Hypothyroidism, unspecified; R01.1 Cardiac murmur, unspecified; M19.09 Primary osteoarthritis, other specified site; M81.0 Age-related osteoporosis without current pathological fracture; M86.9 Osteomyelitis, unspecified; M46.1 Sacroiliitis, not elsewhere classified; M47.815 Spondylosis without myelopathy or radiculopathy, thoracolumbar region; R63.0 Anorexia; R63.4 Abnormal weight loss; Z68.1 Body mass index [BMI] 19.9 or less, adult; Z87.891 Personal history of nicotine dependence; Z79.1 Long term (current) use of non-steroidal anti-inflammatories (NSAID); Z79.891 Long term (current) use of opiate analgesic; Z79.899 Other long term (current) drug therapy
CPT/HCPCS: 36415; 71045; 72128; 72131; 72170; 80048; 80053; 81001; 83735; 85025; 85027; 85610; 85730; 87426; 87636; 93005; 96372; 96374; 96375; 97116; 97161; 97166; 97530; 97535; 99285; A9270; C9803; G0378; J1630; J1885; J2270; J7120

== ENCOUNTER 2024-07-31 17:35 | Inpatient (IN) | payer MEDICARE, SELFPAY ==
[2024-07-31] VITALS (8 sets, daily range): BP systolic 98–146; BP diastolic 60–69; PULSE 78–113; RESP 13–20; TEMP 36.6; O2SAT 98–100
--- NOTE | ~2024-07-31 | CT_ITS ---
EXAMINATION: CT brain wo con DATE: 07/31/2024 18:19 INDICATION: AMS . TECHNIQUE: Computed tomography (CT) of the head was performed without intravenous contrast. The mA wa s adjusted according to patient size. Iterative reconstruction technique was employed. The dose-lengt h product was 681.00 mGy-cm. COMPARISON: None. FINDINGS: Motion artifact is present. No acute intracranial hemorrhage or extra-axial fluid collection. No hydrocephalus, mass, or herniation. No acute ischemic infarct. Unremarkable dural venous sinus attenuation. No acute osseous abnormality. The aerated spaces are clear. Mild atrophy and chronic white matter change. Atherosclerotic intracranial calcification. Bilateral l ens replacements. IMPRESSION: No acute intracranial process. Reviewed, dictated and finalized at location K. IST SPINNER
--- NOTE | ~2024-07-31 | XR_ITS ---
EXAMINATION: XR chest 2V Exam Date/Time: 07/31/2024 18:10 IT TRAINEE HISTORY: fall Comparison: 08/06/2022; CT T and L-spine 08/06/2022. RESULT: Lines, tubes, and devices: None. Lungs and pleura: Senescent changes, otherwise clear. Cardiomediastinal silhouette: Stable. Moderate hiatal hernia. Other: No acute osseous or upper abdominal finding. Angular kyphosis at the thoracolumbar junction. Stable retrolisthesis at T11-T12. Stable severe compression deformity at T12. Stable mild compression deformity at L1 with vertebroplasty cement. Old bilateral healed rib fractures. IMPRESSION: No acute cardiopulmonary process. Reviewed, dictated and finalized at location K. TRAINEE
--- NOTE | ~2024-07-31 | XR_ITS ---
EXAM: XR pelvis 1-2V DATE: 07/31/2024 18:30 HISTORY: falls . COMPARISON: 08/06/2022. FINDINGS: Decreased mineralization. No fracture or dislocation. No lytic or blastic lesion. Lumbar d egenerative disc disease. Mild bilateral hip osteoarthritis. Moderate osteitis pubis. No erosion or p eriosteal change. Pelvic phleboliths. IMPRESSION: No acute osseous finding in the pelvis. Reviewed, dictated and finalized at location K. UCT MANAGEMENT MANAGER
--- NOTE | 2024-07-31 18:00 | ED_ITS ---
HPI - Altered Mental Status General Chief Complaint: Altered Mental Status <Malaika Montes PA-C - Last Filed: 08/01/24 14:37> Stated Complaint: falls, increase in confusion <Malaika Montes PA-C - Last Filed: 08/01/24 14:37> Time Seen by Provider: 07/31/24 18:00 <Malaika Montes PA-C - Last Filed: 08/01/24 14:37> Focused HPI: This is a 74 year old female that presents to the ER from her facility for increased confusion and falls. Ongoing over the last 24 hours. Patient has no pain or complaints currently. GENERAL: Well-appearing, well-nourished, and in no acute distress. HEAD: Normocephalic, atraumatic. CHEST: Clear to auscultation. ?No respiratory distress. HEART: Regular rate and rhythm.? NEURO: ?Alert and oriented x3. Patient screened in triage and initial orders placed.? ?Additional care and disposition to be based upon?diagnostic testing and treatment. <Malaika Montes PA-C - Last Filed: 08/01/24 14:37> Source: patient and family (daughter) <Yolanda Flor MD - Last Filed: 08/02/24 02:54> Mode of arrival: EMS <Yolanda Flor MD - Last Filed: 08/02/24 02:54> Limitations: dementia <Yolanda Flor MD - Last Filed: 08/02/24 02:54> History of Present Illness HPI narrative: Agree with the above with the following additions/corrections: Increased confusion and multiple falls recently. Patient has no complaints other than back pain which is chronic, no changes. Denies any other pain/changes including no extremity pain, headache, chest pain, abdominal pain. No fevers, shortness of breath, or vomiting. Her short term memory seems to be worsening per her daughter and she is having to walk with her walker and cane which she didn't previously have to extensively rely on. She is beginning to shuffle when she walks per daughter. Only complaint during physical exam is that pressing on suprapubic region might make her have to urinate. She is neurologically at her baseline. <Yolanda Flor MD - Last Filed: 08/02/24 02:54> Related Data Home Medications: Home Medications ?Medication ?Instructions ?Recorded ?Confirmed ?Last Taken ?Type artificial tears solution eye drops 2 drp ophthalmic (eye) TID PRN 08/07/22 07/31/24 Unknown History dryness calcium carbonate 500 mg PO BID Heartburn 08/07/22 07/31/24 Unknown History donepezil 10 mg tablet 10 mg PO HS 08/07/22 07/31/24 Unknown History levothyroxine 50 mcg tablet 50 mcg PO DAILY 08/07/22 07/31/24 Unknown History sodium chloride 0.65 % nasal spray 2 spray intranasal Q2H PRN dryness 08/07/22 07/31/24 Unknown History aerosol ([place] Nasal) spironolactone 100 mg tablet 100 mg PO DAILY 08/07/22 07/31/24 Unknown History L.acid,ken-B.anim,bifid,infan 1 cap PO DAILY 07/31/24 07/31/24 Unknown History acetaminophen 500 mg tablet 1,300 mg PO .q8 PRN pain 07/31/24 07/31/24 Unknown History (Acetaminophen Extra Strength) fluticasone propionate 50 1 spray intranasal Q12H 07/31/24 07/31/24 Unknown History mcg/actuation nasal spray,suspension memantine 10 mg tablet 10 mg PO BID 07/31/24 07/31/24 Unknown History miconazole 2 % powder-tolnaftate 1 1 ea topical DAILY 07/31/24 07/31/24 Unknown History % liquid topical kit omeprazole 40 mg capsule,delayed 40 mg PO DAILY PRN blister 07/31/24 07/31/24 Unknown History release saw palmetto 450 mg capsule 450 mg PO DAILY 07/31/24 07/31/24 Unknown History sennosides 8.6 mg-docusate sodium 1 tab-cap PO HS 07/31/24 07/31/24 Unknown History 50 mg tablet (Senna-Time S) epinephrine 0.3 mg/0.3 mL 0.3 mg IM .COMPLEX PRN anaphylaxis 08/01/24 08/01/24 Unknown History injection, auto-injector polyethylene glycol 3350 17 17 g PO DAILY PRN constipation 08/01/24 08/01/24 Unknown History gram/dose oral powder <Malaika Montes PA-C - Last Filed: 08/01/24 14:37> Allergies/Adverse Reactions: Allergies Allergy/AdvReac Type Severity Reaction Status Date / Time ibuprofen Allergy Abdominal Verified 07/31/24 23:05 Pain aspirin AdvReac Unknown Abdominal Verified 07/31/24 23:05 Pain codeine AdvReac Unknown Abdominal Verified 07/31/24 23:05 Pain salicylates AdvReac Unknown Abdominal Verified 07/31/24 23:05 Pain haloperidol (From Haldol) AdvReac Agitated Verified 07/31/24 23:05 <Malaika Montes PA-C - Last Filed: 08/01/24 14:37> Review of Systems 2 Review of Systems: All systems reviewed & are unremarkable except as noted in HPI and below <Malaika Montes PA-C - Last Filed: 08/01/24 14:37> [facility] Past Medical History Medical History: Medical History (Updated 08/01/24 @ 14:37 by Malaika Montes PA-C) Constipation, unspecified Hypertensive heart disease without heart failure Chronic pain Insomnia Major depressive disorder, recurrent, unspecified Unspecified dementia, unspecified severity, without behavioral disturbance, psychotic disturbance, mood disturbance, and anxiety Hypothyroid Anxiety Alzheimer disease <Malaika Montes PA-C - Last Filed: 08/01/24 14:37> Family History Family History: Family History (Updated 07/31/24 @ 23:26 by Nikky Bhatt RN) Other Alzheimer dementia Cancer Diabetes mellitus <Malaika Montes PA-C - Last Filed: 08/01/24 14:37> Social History Social History: Social History (Updated 07/31/24 @ 21:02 by Yolanda Flor MD) Social History: CPR per alf documentation Smoking status: Former smoker Substance use type: does not use Do You Feel Safe in your Home?: Yes Lack of Transportation: No Lack of Food: Never True Current Housing: Decline to Answer Concerned About Future Housing: No Difficulty Paying Gas/Electric Bills: No Difficulty Paying for Meds: No Currently Unemployed: No Education: Decline to Answer Difficulty w/ Childcare or Family Care: No Additional living arrangements comments: [facility] of [facility] care concerns: No <Malaika Montes PA-C - Last Filed: 08/01/24 14:37> Exam 2 Narrative: GENERAL: Well-appearing, well-nourished, and in no acute distress. HEAD: Normocephalic, atraumatic. EYES: Non injected, non icteric ENT: Nares clear, no rhinorrhea or epistaxis. NECK: Supple. CHEST: Speaking in full sentences. No respiratory distress. HEART: Regular rate and rhythm. . ABDOMEN: Soft, nondistended. Mild tenderness to palpation of suprapubic area, slight suprapubic fullness as patient has to urinate. EXTREMITIES: Normal range of motion. No lower extremity edema. Atraumatic to palpation. SKIN: Warm, dry, no rash. NEURO: No focal deficits. Alert and oriented x3. PSYCH: Normal mood and affect. <Yolanda Flor MD - Last Filed: 08/02/24 02:54> Course Vital Signs Vital signs: Vital Signs Temperature 97.9 F 07/31/24 17:58 Pulse Rate 88 07/31/24 17:58 Respiratory Rate 16 07/31/24 17:58 Blood Pressure 98/64 L 07/31/24 17:58 Pulse Oximetry 98 07/31/24 17:58 Oxygen Delivery Room Air 07/31/24 17:58 Temperature 97.8 F 08/01/24 23:48 Pulse Rate 73 08/02/24 02:00 Respiratory Rate 18 08/01/24 23:48 Blood Pressure 115/67 08/01/24 23:48 Pulse Oximetry 98 08/01/24 23:48 Oxygen Delivery Room Air 08/01/24 20:00 <Malaika Montes PA-C - Last Filed: 08/01/24 14:37> Vital Signs Temperature 97.9 F 07/31/24 17:58 Pulse Rate 88 07/31/24 17:58 Respiratory Rate 16 07/31/24 17:58 Blood Pressure 98/64 L 07/31/24 17:58 Pulse Oximetry 98 07/31/24 17:58 Oxygen Delivery Room Air 07/31/24 17:58 Temperature 97.8 F 08/01/24 23:48 Pulse Rate 73 08/02/24 02:00 Respiratory Rate 18 08/01/24 23:48 Blood Pressure 115/67 08/01/24 23:48 Pulse Oximetry 98 08/01/24 23:48 Oxygen Delivery Room Air 08/01/24 20:00 <Yolanda Flor MD - Last Filed: 08/02/24 02:54> MDM - Altered Mental Status MDM Narrative Medical decision making narrative: Patient with dementia presents with increasing confusion and multiple falls. patient has no complaints. In the emergency department she is afebrile vital signs notable for hypotension but with resolution on reassessment. Significant hyponatremia at 117, a decrease from the 130s that was previously noted though 2 years ago. She also has hyperkalemia. Calcium gluconate, high-dose albuterol, insulin and dextrose are ordered as well as Kayexalate. EKG otherwise without concerning features. Patient to be admitted. Spoke with intercell connector placer hospitalist Dr Iyer. <Yolanda Flor MD - Last Filed: 08/02/24 02:54> Differential Diagnosis Differential diagnosis: Likely altered mental status, delirium, dementia, hypoglycemia, hyponatremia, subarachnoid hemorrhage and sepsis <Yolanda Flor MD - Last Filed: 08/02/24 02:54> Lab Data Attestation: I reviewed the patient's lab results. <Yolanda Flor MD - Last Filed: 08/02/24 02:54> Lab results narrative: mild leukocytosis <Yolanda Flor MD - Last Filed: 08/02/24 02:54> Result diagrams: 08/01/24 08:08 08/01/24 14:06 <Malaika Montes PA-C - Last Filed: 08/01/24 14:37> Labs: Lab Results 07/31/24 07/31/24 Range/Units 20:18 20:48 WBC 11.7 H (4.5-10.0) K/mm3 RBC 4.16 L (4.2-5.4) M/mm3 Hgb 13.7 (12.0-15.0) g/dL Hct 38.4 (37.0-47.0) % MCV 92.3 (80-100) fl MCH 32.9 (26-34) pg MCHC 35.7 (32-36) g/dl RDW 11.7 (11.5-14.5) % Plt Count 227 (150-375) k/mm3 MPV 8.4 (7.4-10.4) fl Immature Gran % (Auto) 0.3 (0-0.5) % Neut % (Auto) 87.0 H (45.5-73.1) % Lymph % (Auto) 4.3 L (18.3-44.2) % [place] % (Auto) 7.7 (2.6-8.5) % Eos % (Auto) 0.3 (0-4.4) % Baso % (Auto) 0.4 (0.2-1.2) % Lymph # (Auto) 0.50 L (0.9-3.2) K/mm3 [place] # (Auto) 0.9 H (0.1-0.6) K/mm3 Eos # (Auto) 0.0 (0-0.3) K/mm3 Baso # (Auto) 0.1 (0.0-0.1) K/mm3 Abs Immat Gran (auto) 0.04 H (0.00-0.031) K/mm3 Absolute Neuts (auto) 10.2 H (1.3-6.7) K/mm3 Absolute Nucleated RBC 0.000 (0.0-0.012) K/mm3 Nucleated RBC % 0.0 (0.0-0.2) % PT 12.2 (11.1-14.7) Seconds INR 0.9 APTT 23.8 (22.3-36.8) Seconds Sodium 117 L* (137-145) mmol/L Potassium 5.6 H (3.4-5.0) mmol/L Chloride 86 L (98-107) mmol/L Carbon Dioxide 22 (22-30) mmol/L Anion Gap 9 (4-12) mmol/L BUN 23 H D (7-17) mg/dL Creatinine 1.20 H (0.7-1.0) mg/dL Estim Creat Clear Calc 36 ml/min Estimated GFR 44 L (59 - ) Glucose 100 (65-110) mg/dL Serum Osmolality Pending Calcium 10.1 (8.4-10.2) mg/dL Magnesium 1.5 L (1.6-2.3) mg/dL Total Bilirubin 0.8 (0.2-1.3) mg/dL AST 31 (14-36) U/L ALT 17 (6-35) U/L Alkaline Phosphatase 55 (38-126) U/L Total Protein 7.0 (6.3-8.2) g/dL Albumin 4.6 (3.5-5.1) g/dL Urine Color Yellow (Yellow) Urine Appearance Clear (Clear) Urine pH 5.0 (5.0-9.0) Ur Specific [place] 1.033 (1.001-1.035) Urine Protein Trace (Negative) mg/dL Urine Glucose (UA) Negative (Negative) mg/dL Urine Ketones 2+ H (Negative) mg/dL Ur Blood (Man) Negative (Negative) Urine Nitrate Negative (Negative) Urine Bilirubin Negative (Negative) Urine Urobilinogen 1.0 (<2.0) mg/dL Add Ur Microanalysis Reviewed Leukocyte Esterase Rfl Negative (Negative) IGNACIO/UL Urine RBC 0-2 (0-2) /hpf Urine WBC 0-5 (0-3) /hpf Ur Squamous Epith Cells None seen (Few) /hpf Urine Bacteria None seen /hpf Urine Casts 6-10 Hyaline Casts Present (None) /lpf Urine Osmolality Pending Ur Random Sodium 86 meq/L <Malaika Montes PA-C - Last Filed: 08/01/24 14:37> Lab Results 07/31/24 07/31/24 Range/Units 20:18 20:48 WBC 11.7 H (4.5-10.0) K/mm3 RBC 4.16 L (4.2-5.4) M/mm3 Hgb 13.7 (12.0-15.0) g/dL Hct 38.4 (37.0-47.0) % MCV 92.3 (80-100) fl MCH 32.9 (26-34) pg MCHC 35.7 (32-36) g/dl RDW 11.7 (11.5-14.5) % Plt Count 227 (150-375) k/mm3 MPV 8.4 (7.4-10.4) fl Immature Gran % (Auto) 0.3 (0-0.5) % Neut % (Auto) 87.0 H (45.5-73.1) % Lymph % (Auto) 4.3 L (18.3-44.2) % [place] % (Auto) 7.7 (2.6-8.5) % Eos % (Auto) 0.3 (0-4.4) % Baso % (Auto) 0.4 (0.2-1.2) % Lymph # (Auto) 0.50 L (0.9-3.2) K/mm3 [place] # (Auto) 0.9 H (0.1-0.6) K/mm3 Eos # (Auto) 0.0 (0-0.3) K/mm3 Baso # (Auto) 0.1 (0.0-0.1) K/mm3 Abs Immat Gran (auto) 0.04 H (0.00-0.031) K/mm3 Absolute Neuts (auto) 10.2 H (1.3-6.7) K/mm3 Absolute Nucleated RBC 0.000 (0.0-0.012) K/mm3 Nucleated RBC % 0.0 (0.0-0.2) % PT 12.2 (11.1-14.7) Seconds INR 0.9 APTT 23.8 (22.3-36.8) Seconds Sodium 117 L* (137-145) mmol/L Potassium 5.6 H (3.4-5.0) mmol/L Chloride 86 L (98-107) mmol/L Carbon Dioxide 22 (22-30) mmol/L Anion Gap 9 (4-12) mmol/L BUN 23 H D (7-17) mg/dL Creatinine 1.20 H (0.7-1.0) mg/dL Estim Creat Clear Calc 36 ml/min Estimated GFR 44 L (59 - ) Glucose 100 (65-110) mg/dL Serum Osmolality Pending Calcium 10.1 (8.4-10.2) mg/dL Magnesium 1.5 L (1.6-2.3) mg/dL Total Bilirubin 0.8 (0.2-1.3) mg/dL AST 31 (14-36) U/L ALT 17 (6-35) U/L Alkaline Phosphatase 55 (38-126) U/L Total Protein 7.0 (6.3-8.2) g/dL Albumin 4.6 (3.5-5.1) g/dL Urine Color Yellow (Yellow) Urine Appearance Clear (Clear) Urine pH 5.0 (5.0-9.0) Ur Specific [place] 1.033 (1.001-1.035) Urine Protein Trace (Negative) mg/dL Urine Glucose (UA) Negative (Negative) mg/dL Urine Ketones 2+ H (Negative) mg/dL Ur Blood (Man) Negative (Negative) Urine Nitrate Negative (Negative) Urine Bilirubin Negative (Negative) Urine Urobilinogen 1.0 (<2.0) mg/dL Add Ur Microanalysis Reviewed Leukocyte Esterase Rfl Negative (Negative) IGNACIO/UL Urine RBC 0-2 (0-2) /hpf Urine WBC 0-5 (0-3) /hpf Ur Squamous Epith Cells None seen (Few) /hpf Urine Bacteria None seen /hpf Urine Casts 6-10 Hyaline Casts Present (None) /lpf Urine Osmolality Pending Ur Random Sodium 86 meq/L <Yolanda Flor MD - Last Filed: 08/02/24 02:54> Imaging Data Radiologist's impression: ITS Impressions Head CT 07/31/24 18:24 IMPRESSION: No acute intracranial process. Chest X-Ray 07/31/24 19:14 IMPRESSION: No acute cardiopulmonary process. Pelvis X-Ray 07/31/24 19:18 IMPRESSION: No acute osseous finding in the pelvis. <Malaika Montes PA-C - Last Filed: 08/01/24 14:37> ECG Data EKG #1: Attestation: I personally reviewed and interpreted this ECG as follows: < Yolanda Flor MD - Last Filed: 08/02/24 02:54> ECG completion date: 07/31/24 <Yolanda Flor MD - Last Filed: 08/02/24 02:54> ECG completion time: 20:11 <Yolanda Flor MD - Last Filed: 08/02/24 02:54> Interpretation: Normal sinus rhythm at a rate of 75 beats per minute. DC interval 169. QRS 80. QT/ QTC 360/388. Good R-wave progression across the precordial leads. T-wave inversion in lead 3 but upright in inferior contiguous leads 2 and AVF. <Yolanda Flor MD - Last Filed: 08/02/24 02:54> Critical Care Time Critical Care Time Critical Care Time: No <TETE Robledo Last Filed: 08/01/24 14:37> Discharge Plan Discharge Clinical Impression: Confusion, Multiple falls, Hyponatremia, Hyperkalemia, REBECCA (acute kidney injury), Ketonuria Leukocytosis Qualifiers: Leukocytosis type: unspecified Qualified Code(s): D72.829 - Elevated white blood cell count, unspecified <Malaika Montes PA-C - Last Filed: 08/01/24 14:37> Patient Disposition: Still a Patient <Malaika Montes PA-C - Last Filed: 08/01/24 14:37> Condition: Serious <Malaika Montes PA-C - Last Filed: 08/01/24 14:37>
--- NOTE | 2024-07-31 18:02 | ECG_ITS ---
Test Date: 2024-07-31 20:11:04 Measurements Intervals Dorothy Rate: 75 P: 10 MS: 169 QRS: 19 QRSD: 80 T: 3 QT: 360 QTc: 402 Interpretive Statements SINUS RHYTHM No previous ECG available for comparison Electronically Signed On 08-01-2024 11:49:28 RAMP ATTENDANT by Manan Magaña
--- NOTE | 2024-07-31 18:29 | PC.NURSE ---
Patient in cat scan when called for MSE labs and EKG
--- NOTE | 2024-07-31 20:01 | ED_ITS ---
HPI - Altered Mental Status General Chief Complaint: Altered Mental Status Stated Complaint: falls, increase in confusion Time Seen by Provider: 07/31/24 18:00 Related Data Home Medications ?Medication ?Instructions ?Recorded ?Confirmed ?Last Taken ?Type artificial tears solution eye drops 2 drp ophthalmic (eye) TID PRN 08/07/22 08/07/22 Unknown History dryness calcium carbonate 500 mg PO TID PRN Heartburn 08/07/22 08/07/22 Unknown History donepezil 10 mg tablet 10 mg PO DAILY 08/07/22 08/07/22 Unknown History levothyroxine 50 mcg tablet 50 mcg PO DAILY 08/07/22 08/07/22 Unknown History pravastatin 20 mg tablet 20 mg PO HS 08/07/22 08/07/22 Unknown History sertraline 100 mg tablet 100 mg PO DAILY 08/07/22 08/07/22 Unknown History sodium chloride 0.65 % nasal spray 2 spray intranasal Q2H PRN dryness 08/07/22 08/07/22 Unknown History aerosol ([place] Nasal) spironolactone 100 mg tablet 100 mg PO DAILY 08/07/22 08/07/22 Unknown History Allergies Allergy/AdvReac Type Severity Reaction Status Date / Time aspirin Allergy Unknown Unknown Verified 07/31/24 18:05 codeine Allergy Unknown Other Verified 07/31/24 18:05 ibuprofen Allergy Abdominal Verified 07/31/24 18:05 Pain iodine Allergy Abdominal Verified 07/31/24 18:05 Pain salicylates AdvReac Unknown Abdominal Verified 07/31/24 18:05 Pain PMFSH Past Medical History Medical History (Updated 08/10/22 @ 14:20 by Christa Camacho, COST RECOVERY TECHNICIAN) Hypothyroid Anxiety Alzheimer disease Social History Social History Smoking status: Former smoker Substance use type: does not use Lack of Transportation: No Lack of Food: Never True Current Housing: Decline to Answer Concerned About Future Housing: No Difficulty Paying Gas/Electric Bills: No Difficulty Paying for Meds: No Currently Unemployed: No Education: Decline to Answer Difficulty w/ Childcare or Family Care: No Spiritual care concerns: No Exam Narrative: GENERAL: Well-appearing, well-nourished, and in no acute distress. HEAD: Normocephalic, atraumatic. EYES: Non injected, non icteric ENT: Nares clear, no rhinorrhea or epistaxis. NECK: Supple. CHEST: Speaking in full sentences. No respiratory distress. HEART: Regular rate and rhythm. . ABDOMEN: Soft, nondistended. EXTREMITIES: Normal range of motion. No lower extremity edema. SKIN: Warm, dry, no rash. NEURO: No focal deficits. Alert and oriented x3. PSYCH: Normal mood and affect. Course Vital Signs Vital signs: Vital Signs Temperature 97.9 F 07/31/24 17:58 Pulse Rate 88 07/31/24 17:58 Respiratory Rate 16 07/31/24 17:58 Blood Pressure 98/64 L 07/31/24 17:58 Pulse Oximetry 98 07/31/24 17:58 Oxygen Delivery Room Air 07/31/24 17:58 Temperature 97.9 F 07/31/24 17:58 Pulse Rate 88 07/31/24 17:58 Respiratory Rate 16 07/31/24 17:58 Blood Pressure 98/64 L 07/31/24 17:58 Pulse Oximetry 98 07/31/24 17:58 Oxygen Delivery Room Air 07/31/24 17:58 MDM - Altered Mental Status MDM Narrative Medical decision making narrative: In the emergency department she is afebrile with vital signs notable for hypotension. Discharge Plan Discharge Patient Language: Pakistani Prescriptions: No Action donepezil 10 mg tablet 10 mg PO DAILY spironolactone 100 mg tablet 100 mg PO DAILY sertraline 100 mg tablet 100 mg PO DAILY levothyroxine 50 mcg tablet 50 mcg PO DAILY pravastatin 20 mg tablet 20 mg PO HS calcium carbonate 500 mg calcium (1,250 mg) Tablet,Chewable 500 mg PO TID PRN (Reason: Heartburn) Bert[place] Nasal 0.65 % Aerosol,[place] 2 spray INTRANASAL Q2H PRN (Reason: dryness) artificial tears solution Drops 2 drp OPHTHALMIC (EYE) TID PRN (Reason: dryness) lidocaine [Lidoderm] 5 % adhesive patch,medicated 1 patch topical DAILY Qty: 15 0RF Rx Instructions: leave on most painful area for up to 12 hrs. lower back acetaminophen [Acetaminophen Extra Strength] 500 mg tablet 1,000 mg PO .q8 Qty: 14 0RF Rx Instructions: Continue scheduled acetaminophen for the next 1-2 weeks, then consider changing to PRN if pain is controlled. bisacodyl 10 mg suppository 10 mg RECTAL DAILY PRN (Reason: constipation) Qty: 12 0RF polyethylene glycol 3350 [Miralax] 17 gram/dose powder 17 g PO DAILY Qty: 119 0RF Rx Instructions: hold for loose stool oxycodone 5 mg tablet 5 mg PO Q4H PRN (Reason: pain) Qty: 20 0RF melatonin 5 mg capsule 5 mg PO HS Qty: 7 0RF Follow-up/Referrals: Feliberto,Rey Brito MD [Primary Care Provider] -
[2024-07-31 20:24] LABS: Basophils Absolute Auto 0.1 K/mm3 (0.0-0.1); Basophils Percent Auto 0.4 % (0.2-1.2); Eosinophils Percent Auto 0.3 % (0-4.4); Hematocrit 38.4 % (37.0-47.0); Hemoglobin 13.7 g/dL (12.0-15.0); Immature Granulocyte Absolute 0.04 K/mm3 (0.00-0.031); Immature Granulocyte Percent A 0.3 % (0-0.5); Lymphocytes Percent Auto 4.3 % (18.3-44.2); Mean Corpuscular HGB Conc 35.7 g/dl (32-36); Mean Corpuscular Hemoglobin 32.9 pg (26-34); Mean Corpuscular Volume 92.3 fl (80-100); Mean Platelet Volume 8.4 fl (7.4-10.4); Monocytes Absolute Auto 0.9 K/mm3 (0.1-0.6); Monocytes Percent Auto 7.7 % (2.6-8.5); Neutrophils Absolute Auto 10.2 K/mm3 (1.3-6.7); Platelet Count Result 227 k/mm3 (150-375); Red Blood Count 4.16 M/mm3 (4.2-5.4); Red Cell Distribution Width 11.7 % (11.5-14.5); White Blood Count 11.7 K/mm3 (4.5-10.0)
[2024-07-31 20:43] LABS: INR 0.9; Prothrombin Time 12.2 Seconds (11.1-14.7)
[2024-07-31 20:44] LABS: Partial Thromboplastin Time 23.8 Seconds (22.3-36.8)
[2024-07-31 20:48] LABS: Alanine Aminotransferase 17 U/L (6-35); Albumin Level 4.6 g/dL (3.5-5.1); Alkaline Phosphatase 55 U/L (38-126); Anion Gap 9 mmol/L (4-12); Aspartate Amino Transferase 31 U/L (14-36); Bilirubin,Total 0.8 mg/dL (0.2-1.3); Blood Urea Nitrogen 23 mg/dL (7-17); Calcium 10.1 mg/dL (8.4-10.2); Carbon Dioxide 22 mmol/L (22-30); Chloride 86 mmol/L (98-107); Estimated CRCL calculation 36 ml/min; Estimated Glomerular Filt Rate 44; Glucose 100 mg/dL (65-110); Potassium 5.6 mmol/L (3.4-5.0); Sodium 117 mmol/L (137-145)
[2024-07-31 21:14] LABS: Add Urine Microscopic? YES; Appearance Urine Clear (Clear); Bacteria Urine None Seen /hpf; Bilirubin Urine Negative (Negative); Blood Urine Negative (Negative); Color Urine Yellow (Yellow); Glucose Urine UA Negative (Negative); Hyaline Casts Urine Present /lpf; Ketones Urine 2+ mg/dL (Negative); Leukocyte Esterase Ur Negative LEU/UL (Negative); Need Manual Microscopic Reviewed; Nitrate Urine Negative (Negative); Protein Urine Trace mg/dL (Negative); RBC Urine 0-2 /hpf (0-2); Specific Grav Ur 1.033 (1.001-1.035); Squamous Epithelial Cell Urine None Seen /hpf (Few); WBC Urine 0-5 /hpf (0-3)
[2024-07-31] MEDS: ALBUTEROL SULFATE NEB 2.5 MG/3 ML INH 10 MG INHALATION (21:23)
[2024-07-31 21:31] LABS: Magnesium 1.5 mg/dL (1.6-2.3)
[2024-07-31 21:48] LABS: Sodium Urine Random 86 meq/L
[2024-07-31] MEDS: DEXTROSE 50% 25 GM/50 ML SYRINGE IV PUSH (22:01)
[2024-07-31] MEDS: CALCIUM GLUCONATE 1,000 MG/10 ML VIAL 1000 MG IV PUSH (22:11)
[2024-07-31] MEDS: INSULIN HUMAN REGULAR (*BKC) 100 UNITS/ML 10 UNITS IV PUSH (22:11)
[2024-07-31] MEDS: SODIUM CHLORIDE 0.9% IV 1,000 ML 999 ML IV CONT (22:17)
--- NOTE | 2024-07-31 22:22 | P.HP_ITS ---
H&P: HPI History of Present Illness Date/Time: 07/31/24 22:22 Chief Complaint: generalized weakness Narrative: This is a 74-year-old female, with past medical history significant for chronic kidney disease, hypertension, osteoporosis, compression vertebrae fracture, Alzheimer's dementia, patient resides at assisted living facility, uses a rolling walker and a cane as assisting device for ambulation. Was noted to be short feeling her gait and to be weak daughter was called and advised to bring her to the hospital preliminary workup was significant for sodium 117. Patient has been admitted for further evaluation management and treatment. EXAMINATION: CT brain wo con DATE: 07/31/2024 18:19 INDICATION: AMS . TECHNIQUE: Computed tomography (CT) of the head was performed without intravenous contrast. The mA was adjusted according to patient size. Iterative reconstruction technique was employed. The dose-length product was 681.00 mGy- cm. COMPARISON: None. FINDINGS: Motion artifact is present. No acute intracranial hemorrhage or extra-axial fluid collection. No hydrocephalus, mass, or herniation. No acute ischemic infarct. Unremarkable dural venous sinus attenuation. No acute osseous abnormality. The aerated spaces are clear. Mild atrophy and chronic white matter change. Atherosclerotic intracranial calcification. Bilateral lens replacements. IMPRESSION: No acute intracranial process. 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 RESULT: Lines, tubes, and devices: None. Lungs and pleura: Senescent changes, otherwise clear. Cardiomediastinal silhouette: Stable. Moderate hiatal hernia. Other: No acute osseous or upper abdominal finding. Angular kyphosis at the thoracolumbar junction. Stable retrolisthesis at T11-T12. Stable severe compression deformity at T12. Stable mild compression deformity at L1 with vertebroplasty cement. Old bilateral healed rib fractures. IMPRESSION: No acute cardiopulmonary process. EXAM: XR pelvis 1-2V DATE: 07/31/2024 18:30 HISTORY: falls . COMPARISON: 08/06/2022. FINDINGS: Decreased mineralization. No fracture or dislocation. No lytic or blastic lesion. Lumbar degenerative disc disease. Mild bilateral hip osteoarthritis. Moderate osteitis pubis. No erosion or periosteal change. Pelvic phleboliths. IMPRESSION: No acute osseous finding in the pelvis. Review of Systems Review of Systems: ROS unobtainable: Yes unobtainable due to mental status ( dementia) [facility] Past Medical History Medical History (Updated 07/31/24 @ 21:22 by Yolanda Flor MD) Constipation, unspecified Hypertensive heart disease without heart failure Chronic pain Insomnia Major depressive disorder, recurrent, unspecified Unspecified dementia, unspecified severity, without behavioral disturbance, psychotic disturbance, mood disturbance, and anxiety Hypothyroid Anxiety Alzheimer disease Family History Family History (Updated 07/31/24 @ 23:26 by Nikky Bhatt RN) Other Alzheimer dementia Cancer Diabetes mellitus Social History Social History (Updated 07/31/24 @ 21:02 by Yolanda Flor MD) Social History: CPR per [facility] documentation Smoking status: Former smoker Substance use type: does not use Lack of Transportation: No Lack of Food: Never True Current Housing: Decline to Answer Concerned About Future Housing: No Difficulty Paying Gas/Electric Bills: No Difficulty Paying for Meds: No Currently Unemployed: No Education: Decline to Answer Difficulty w/ Childcare or Family Care: No Additional living arrangements comments: [facility] care concerns: No Meds Home Medications and Allergies Home Medications ?Medication ?Instructions ?Recorded ?Confirmed ?Type artificial tears solution eye drops 2 drp ophthalmic (eye) TID PRN 08/07/22 07/31/24 History dryness calcium carbonate 500 mg PO BID Heartburn 08/07/22 07/31/24 History donepezil 10 mg tablet 10 mg PO HS 08/07/22 07/31/24 History levothyroxine 50 mcg tablet 50 mcg PO DAILY 08/07/22 07/31/24 History pravastatin 20 mg tablet 20 mg PO DAILY 08/07/22 07/31/24 History sodium chloride 0.65 % nasal spray 2 spray intranasal Q2H PRN dryness 08/07/22 07/31/24 History aerosol ([place] Nasal) spironolactone 100 mg tablet 100 mg PO DAILY 08/07/22 07/31/24 History melatonin 5 mg capsule 5 mg PO HS #7 caps 08/10/22 07/31/24 Rx L.acid,ken-B.anim,bifid,infan 1 cap PO DAILY 07/31/24 07/31/24 History acetaminophen 500 mg tablet 1,300 mg PO .q8 PRN pain 07/31/24 07/31/24 History (Acetaminophen Extra Strength) fluticasone propionate 50 1 spray intranasal Q12H 07/31/24 07/31/24 History mcg/actuation nasal spray,suspension memantine 10 mg tablet 10 mg PO BID 07/31/24 07/31/24 History miconazole 2 % powder-tolnaftate 1 1 ea topical DAILY 07/31/24 07/31/24 History % liquid topical kit omeprazole 40 mg capsule,delayed 40 mg PO DAILY PRN blister 07/31/24 07/31/24 History release saw palmetto 450 mg capsule 450 mg PO DAILY 07/31/24 07/31/24 History sennosides 8.6 mg-docusate sodium 1 tab-cap PO HS 07/31/24 07/31/24 History 50 mg tablet (Senna-Time S) Allergies Allergy/AdvReac Type Severity Reaction Status Date / Time ibuprofen Allergy Abdominal Verified 07/31/24 23:05 Pain aspirin AdvReac Unknown Abdominal Verified 07/31/24 23:05 Pain codeine AdvReac Unknown Abdominal Verified 07/31/24 23:05 Pain salicylates AdvReac Unknown Abdominal Verified 07/31/24 23:05 Pain haloperidol (From Haldol) AdvReac Agitated Verified 07/31/24 23:05 Vital Signs Vital Signs - 24 hr 07/31/24 17:58 07/31/24 20:16 07/31/24 20:21 Temperature 97.9 F Pulse Rate 88 78 Respiratory Rate 16 14 Blood Pressure 98/64 L 132/63 Pulse Oximetry 98 100 99 Oxygen Delivery Room Air Room Air 07/31/24 21:26 07/31/24 21:57 Temperature Pulse Rate 81 102 H Respiratory Rate 13 17 Blood Pressure 146/60 H Pulse Oximetry 100 Oxygen Delivery Exam Narrative: laying in a stretcher Const: General: comfortable, no acute distress, well developed, alert, awake and average body habitus Nutritional Appearance: average body habitus Orientation/consciousness: oriented to person and confusion HENMT: Head: normal to inspection, normocephalic and atraumatic Ears: hearing grossly normal bilaterally Face/Nose/Sinus: normal facial exam Face and sinus: normal facial exam Eyes: General: appearance normal, both eyes and all related structures Pupils: Equal, round and reactive pupils present EOM: EOMs intact bilaterally Neck: Neck: full ROM, no lymphadenopathy and no JVD Thyroid: thyroid normal Lymphatic: no lymphadenopathy noted Resp: Effort & Inspection: normal respiratory effort and able to speak in complete sentences Auscultation: clear to auscultation bilaterally Cardio: Jugular venous distension: no JVD Rate: regular rate Rhythm: regular rhythm Heart sounds: S1 normal heart sound present and S2 normal heart sound present GI: GI Palp: Yes Soft to palpation and Yes No hepatosplenomegaly present : General: Yes deferred Skin: Rashes: no rashes Wounds: no wounds Neuro: General: patient oriented x3 and CN's II-XI intact bilaterally Cranial nerves: Yes CN's II-XII intact bilaterally and Yes Equal, round and reactive pupils present Cognition (Neuro): normal cognition Speech: normal speech Gait exam (Neuro): Normal gait present Motor exam (neuro): 5/5 motor strength present throughout Extrem: General: normal to inspection, full ROM, no joint enlargement and no pedal edema H&P: Results Labs Labs: Short CBC 07/31/24 Range/Units 20:18 WBC 11.7 H (4.5-10.0) K/mm3 Hgb 13.7 (12.0-15.0) g/dL Hct 38.4 (37.0-47.0) % Plt Count 227 (150-375) k/mm3 BMP 07/31/24 20:18 Sodium 117 L* Potassium 5.6 H Chloride 86 L Carbon Dioxide 22 BUN 23 H D Creatinine 1.20 H Glucose 100 Calcium 10.1 Liver Function 07/31/24 Range/Units 20:18 Total Bilirubin 0.8 (0.2-1.3) mg/dL AST 31 (14-36) U/L ALT 17 (6-35) U/L Alkaline Phosphatase 55 (38-126) U/L Albumin 4.6 (3.5-5.1) g/dL Urine 07/31/24 Range/Units 20:48 Urine Color Yellow (Yellow) Urine Appearance Clear (Clear) Urine pH 5.0 (5.0-9.0) Ur Specific [place] 1.033 (1.001-1.035) Urine Protein Trace (Negative) mg/dL Urine Glucose (UA) Negative (Negative) mg/dL Assessment and Plan Assessment and plan (1) Hyponatremia: Code(s): E87.1 - Hypo-osmolality and hyponatremia Status: Acute Assessment and Plan: Admit to IMU patient currently on 0.9 normal saline continue to monitor okay for 8 mEq increase every 24 hours will hold spironolactone (2) Dementia: Code(s): F03.90 - Unspecified dementia, unspecified severity, without behavioral disturbance, psychotic disturbance, mood disturbance, and anxiety Status: Acute Assessment and Plan: continue donepezil (3) Alzheimer disease: Code(s): G30.9 - Alzheimer's disease, unspecified; F02.80 - Dementia in other diseases classified elsewhere, unspecified severity, without behavioral disturbance, psychotic disturbance, mood disturbance, and anxiety Status: Acute Assessment and Plan: on donepezil (4) Multiple falls: Code(s): R29.6 - Repeated falls Status: Acute Assessment and Plan: PT OT consult (5) Hyperkalemia: Code(s): E87.5 - Hyperkalemia Status: Acute Assessment and Plan: mild likely secondary to spironolactone received breathing treatment continue to monitor Hospitalist MIPS Advance Care Plan I have confirmed that the patient's Advanced Care Plan is present, code status is documented, or surrogate decision maker is listed in patient medical record.: Yes Medication Reconciliation I have utilized all available resources to obtain, update and review the patients current medications (includes all prescriptions, OTC, herbals, cannabis, and nutritional supplements).: Yes
[2024-07-31 22:23] LABS: Glucose Point of Care 106 mg/dl (65-105)
[2024-07-31] MEDS: ACETAMINOPHEN 325 MG TABLET 650 MG PO (22:24)
[2024-07-31] MEDS: SODIUM POLYSTYRENE SULFONONATE 15 GM/60 ML BTL 30 GM PO (22:53)
--- NOTE | 2024-07-31 23:34 | PC.NURSE ---
Admission complete; Report to MONROE Duron.
[2024-08-01] VITALS (15 sets, daily range): BP systolic 102–115; BP diastolic 47–67; PULSE 71–106; RESP 14–18; TEMP 36.6–36.9; O2SAT 96–100; BMI 18.1
--- OUTSIDE RECORDS SUMMARY | 2024-08-01 00:01 | XMS_ITS ---
Care Plan - [facility] Created on: August 01, 2024 VIOLET POP : 1950 Sex: Female Author Organization [facility] Address [address] [place] [address] Phone Care Team Providers Care Data Review Specialist Name Role Phone SUJIT MITCHELL, [facility] Paula Primary Care Provider [phone]
--- OUTSIDE RECORDS SUMMARY | 2024-08-01 00:01 | XMS_ITS ---
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 Active Last Documented On 06/07/2012 9:31AM ; [facility] Note: DOES NOT DESIRE INTERVENTION ESOPHAGEAL REFLUX 06/01/2011 CLAUDIO ROSARIO M.D. Active Last Documented On 1 9:18AM ; [facility] HYPERLIPIDEMIA NEC/NOS 06/01/2011 CLAUDIO DELUCA M.D. Active Last Documented On 1 9:23AM ; [facility] HYPOTHYROIDISM NOS 06/01/2011 CLAUDIO Mayers M.D. Active Last Documented On 1 9:20AM ; [facility] Osteopenia 05/19/2010 CELESTINO RICE LEANN-BC Act unique Last Documented On 10/31/2017 1:51PM ; [facility] Note: h/o of ankel fracture Arthritis 12/08/2009 CLAUDIO ROSARIO M.D. A ctive Last Documented On 0 1:16PM ; [facility] Irritable Bowel Syndrome 12/08/2009 CLAUDIO SOMERS M.D. Active Last Documented On 0 1:15PM ; [facility] Fibromyalgia 12/08/2009 CLAUDIO ROSARIO M.D. Active Last Documented On 0 1:15PM ; [facility] Plan of Treatment Findings Encounter Date Ordered Clinical summary pro vided to patient NEW EDUCATION PARAPROFESSIONAL EXAM with CELESTINO RICE WHNP-BC 10/31/2017 Last Documented On 8 2:05PM ; [facility] Ordered follow-up visit 1 ye ar or as needed NEW EDUCATION PARAPROFESSIONAL EXAM with CELESTINO RICE WHNP-BC 10/31/2017 Last Documented On 8 2:05PM ; [facility] Ordered Clinical summary pro vided to patient NEW EDUCATION PARAPROFESSIONAL EXAM with CELESTINO RICE WHNP-BC 10/04/2013 Last Documented On 4 10:23AM ; [facility] Ordered follow-up visit 1 ye ar or as needed NEW EDUCATION PARAPROFESSIONAL EXAM with CELESTINO RICE WHNP-BC 10/04/2013 Last Documented On 4 10:23AM ; [facility] Ordered Clinical summary pro vided to patient 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 06/07/2012 Last Documented On 2 9:31AM ; [facility] Instructions to patient Instructions for patient : B reast Self Exam discussed Last Documented On 8 1:28PM ; [facility] Instructions for patient Breanne l for any palpable lumps Last Documented On 8 1:46PM ; [facility] Lose weight Last Documented On 8 1:29PM ; [facility] Instructed to decrease carbo nation and caffeine Last Documented On 8 1:46PM ; [facility] Instructions For Patient: Mo nthly Self Breast Exam Last Documented On 8 1:46PM ; [facility] Colonoscopy Handout given to patient Last Documented On 8 1:29PM ; [facility] Instructions for patient : B reast Self Exam discussed Last Documented On 4 9:46AM ; [facility] Instructions for patient : K eep the area around the vulva dry. Allow the area to have exposure to air. Avoid irritants such as fabric softeners and perfumed soaps.~ Last Documented On 4 10:23AM ; [facility] Lose weight Last Documented On 4 9:47AM ; [facility] Advised d/c scented bath pro ducts Last Documented On 4 10:23AM ; [facility] Colonoscopy Handout given to patient Last Documented On 4 9:47AM ; [facility] Instructions for patient : B reast Self Exam discussed. Reviewed monthly self breast examination and technique Last Documented On 2 9:15AM ; [facility] Recommend diet and exercise at least 30 min three times per week Last Documented On 2 9:15AM ; [facility] Recommend preventative vacci nation including but not limited to influenza/flu vaccine, DTP, Rubella, Hepatitis B vaccination series Last Documented On 2 9:15AM ; [facility] Recommend annual pap smear e xamination or every three year if high risk hpv negative and 3 consecutive normal pap examination during preceding three years Last Documented On 2 9:15AM ; [facility] Recommend TSH, fasting gluco se, fasting lipid panel, CBC, BMP Last Documented On 2 9:15AM ; [facility] Recommend Calcium supplement ation and weight bearing exercise Last Documented On 2 9:15AM ; [facility] Recommended Bone Density Last Documented On 2 9:15AM ; [facility] Recommended Colonoscopy Pt r eferred to Gastroenetrologist. Pt understands that recommendation for colonoscopy is every 10 years after the age of 50 or age of 40 if first degree relative with history of colon cancer. Patient understands that failure to follow recommendation can lead to delayed diagnosis of colon cancer and patient accepts all responsibility regarding scheduling and follow up with land classifier Last Documented On 2 9:15AM ; [facility] Instructions for patient : B reast Self Exam discussed. Reviewed monthly self breast examination and technique Last Documented On 1 9:13AM ; [facility] Recommend diet and exercise at least 30 min three times per week Last Documented On 1 9:13AM ; [facility] Discussed Gardasil vaccinati on and recommend vaccination for HPV prevention. Handout given. Patient undertsands sexual transmission of high-risk HPV and association with abnormal pap smear and cervical cancer. recommend to decrease high risk behaviors such as: number of sexual partners, smoking, and contraceptive use Last Documented On 1 9:13AM ; [facility] Recommend preventative vacci nation including but not limited to influenza/flu vaccine, DTP, Rubella, Hepatitis B vaccination series Last Documented On 1 9:13AM ; [facility] Recommend annual pap smear e xamination or every three year if high risk hpv negative and 3 consecutive normal pap examination during preceding three years Last Documented On 1 9:13AM ; [facility] Recommend TSH, fasting gluco se, fasting lipid panel, CBC, BMP Last Documented On 1 9:13AM ; [facility] Recommend Calcium supplement ation and weight bearing exercise Last Documented On 1 9:13AM ; [facility] Recommended Bone Density Last Documented On 1 9:13AM ; [facility] Recommended Colonoscopy Pt r eferred to Gastroenetrologist. Pt understands that recommendation for colonoscopy is every 10 years after the age of 50 or age of 40 if first degree relative with history of colon cancer. Patient understands that failure to follow recommendation can lead to delayed diagnosis of colon cancer and patient accepts all responsibility regarding scheduling and follow up with land classifier Last Documented On 1 9:13AM ; [facility] Instructions for patient : B reast Self Exam discussed. Reviewed monthly self breast examination and technique Last Documented On 0 11:59AM ; [facility] Recommend diet and exercise at least 30 min three times per week Last Documented On 0 11:59AM ; [facility] Discussed Gardasil vaccinati on and recommend vaccination for HPV prevention. Handout given. Patient undertsands sexual transmission of high-risk HPV and association with abnormal pap smear and cervical cancer. recommend to decrease high risk behaviors such as: number of sexual partners, smoking, and contraceptive use Last Documented On 0 11:59AM ; [facility] Recommend preventative vacci nation including but not limited to influenza/flu vaccine, DTP, Rubella, Hepatitis B vaccination series Last Documented On 0 11:59AM ; [facility] Recommend annual pap smear e xamination or every three year if high risk hpv negative and 3 consecutive normal pap examination during preceding three years Last Documented On 0 11:59AM ; [facility] Recommend TSH, fasting gluco se, fasting lipid panel, CBC, BMP Last Documented On 0 11:59AM ; [facility] Recommend Calcium supplement ation and weight bearing exercise Last Documented On 0 11:59AM ; [facility] Recommended Bone Density Last Documented On 0 11:59AM ; [facility] Recommended Colonoscopy Pt r eferred to Gastroenetrologist. Pt understands that recommendation for colonoscopy is every 10 years after the age of 50 or age of 40 if first degree relative with history of colon cancer. Patient understands that failure to follow recommendation can lead to delayed diagnosis of colon cancer and patient accepts all responsibility regarding scheduling and follow up with land classifier Last Documented On 0 11:59AM ; [facility] Education and Decision Aids were provided during visit for: Patient Education: Daily breanne cium and vitamin D Last Documented On 8 1:28PM ; [facility] Patient Education: weight be aring exercise Last Documented On 8 1:28PM ; [facility] Patient Education: Daily breanne cium and vitamin D Last Documented On 4 9:46AM ; [facility] Patient Education: weight be aring exercise Last Documented On 4 9:46AM ; [facility] Candidiasis Vulvovaginitis I nformation Sheet Given Last Documented On 4 10:23AM ; [facility] Assessments Includes: Assessments for all patient encounters Findings Encounter Date Fibrocystic disease of breast NEW EDUCATION PARAPROFESSIONAL EXAM with CELESTINO RICE [facility] 10/31/2017 Last Documented On 8 2:05PM ; [facility] NORMAL FEMALE EXAM NEW EDUCATION PARAPROFESSIONAL EXAM with CELESTINO STAFFORD [facility] 10/31/2017 Last Documented On 8 2:05PM ; [facility] Screening Malig. Neoplasm Rectum NEW EDUCATION PARAPROFESSIONAL EXAM wi th CELESTINO RICE [facility] 10/31/2017 Last Documented On 8 2:05PM ; [facility] Thelma albicans vulvovaginitis NEW EDUCATION PARAPROFESSIONAL EXAM wit h CELESTINO RICE [facility] 10/04/2013 Last Documented On 4 10:23AM ; [facility] NORMAL FEMALE EXAM NEW EDUCATION PARAPROFESSIONAL EXAM with CELESTINO STAFFORD [facility] 10/04/2013 Last Documented On 4 10:23AM ; [facility] Screening Malig. Neoplasm Rectum NEW EDUCATION PARAPROFESSIONAL EXAM wi th CELESTINO RICE 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 06/07/2012 Last Documented On 2 9:31AM ; [facility] MAMMOGRAM SCREENING 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 06/07/2012 Last Documented On 2 9:31AM ; [facility] Screening Malig. 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 06/01/2011 Last Documented On 1 9:35AM ; [facility] MAMMOGRAM SCREENING 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 06/01/2011 Last Documented On 1 9:35AM ; [facility] Screening Malig. 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 06/01/2011 Last Documented On 1 9:35AM ; [facility] Asymptomatic postmenopausal status EDUCATION PARAPROFESSIONAL EXAM with LCAUDIO ROSARIO M.D. 05/19/2010 Last Documented On 0 12:23PM ; [facility] MAMMOGRAM SCREENING EDUCATION PARAPROFESSIONAL EXAM with TRISTANHARPER Claros JULIA HEIN M.D. 05/19/2010 Last Documented On 0 12:23PM ; [facility] NORMAL FEMALE EXAM EDUCATION PARAPROFESSIONAL EXAM with CLAUDIO Claros EDEL FORD M.D. 05/19/2010 Last Documented On 0 12:23PM ; [facility] Screening Malig. Neoplasm Rectum EDUCATION PARAPROFESSIONAL EXAM with Gurmeet KRISTALHARPER Harlan ROSARIO M.D. 05/19/2010 Last Documented On 0 12:23PM ; [facility] Instructions Includes: Instructions for all patient encounters Instructions to patient Instructions for patient : B reast Self Exam discussed Last Documented On 8 1:28PM ; [facility] Instructions for patient Breanne l for any palpable lumps Last Documented On 8 1:46PM ; [facility] Lose weight Last Documented On 8 1:29PM ; [facility] Instructed to decrease carbo nation and caffeine Last Documented On 8 1:46PM ; [facility] Instructions For Patient: Mo nthly Self Breast Exam Last Documented On 8 1:46PM ; [facility] Colonoscopy Handout given to patient Last Documented On 8 1:29PM ; [facility] Instructions for patient : B reast Self Exam discussed Last Documented On 4 9:46AM ; [facility] Instructions for patient : K eep the area around the vulva dry. Allow the area to have exposure to air. Avoid irritants such as fabric softeners and perfumed soaps.~ Last Documented On 4 10:23AM ; [facility] Lose weight Last Documented On 4 9:47AM ; [facility] Advised d/c scented bath pro ducts Last Documented On 4 10:23AM ; [facility] Colonoscopy Handout given to patient Last Documented On 4 9:47AM ; [facility] Instructions for patient : B reast Self Exam discussed. Reviewed monthly self breast examination and technique Last Documented On 2 9:15AM ; [facility] Recommend diet and exercise at least 30 min three times per week Last Documented On 2 9:15AM ; [facility] Recommend preventative vacci nation including but not limited to influenza/flu vaccine, DTP, Rubella, Hepatitis B vaccination series Last Documented On 2 9:15AM ; [facility] Recommend annual pap smear e xamination or every three year if high risk hpv negative and 3 consecutive normal pap examination during preceding three years Last Documented On 2 9:15AM ; [facility] Recommend TSH, fasting gluco se, fasting lipid panel, CBC, BMP Last Documented On 2 9:15AM ; [facility] Recommend Calcium supplement ation and weight bearing exercise Last Documented On 2 9:15AM ; [facility] Recommended Bone Density Last Documented On 2 9:15AM ; [facility] Recommended Colonoscopy Pt r eferred to Gastroenetrologist. Pt understands that recommendation for colonoscopy is every 10 years after the age of 50 or age of 40 if first degree relative with history of colon cancer. Patient understands that failure to follow recommendation can lead to delayed diagnosis of colon cancer and patient accepts all responsibility regarding scheduling and follow up with land classifier Last Documented On 2 9:15AM ; [facility] Instructions for patient : B reast Self Exam discussed. Reviewed monthly self breast examination and technique Last Documented On 1 9:13AM ; [facility] Recommend diet and exercise at least 30 min three times per week Last Documented On 9:13AM ; [facility] Discussed Gardasil vaccinati on and recommend vaccination for HPV prevention. Handout given. Patient undertsands sexual transmission of high-risk HPV and association with abnormal pap smear and cervical cancer. recommend to decrease high risk behaviors such as: number of sexual partners, smoking, and contraceptive use Last Documented On 9:13AM ; [facility] Recommend preventative vacci nation including but not limited to influenza/flu vaccine, DTP, Rubella, Hepatitis B vaccination series Last Documented On 9:13AM ; [facility] Recommend annual pap smear e xamination or every three year if high risk hpv negative and 3 consecutive normal pap examination during preceding three years Last Documented On 9:13AM ; [facility] Recommend TSH, fasting gluco se, fasting lipid panel, CBC, BMP Last Documented On 1 9:13AM ; [facility] Recommend Calcium supplement ation and weight bearing exercise Last Documented On 1 9:13AM ; [facility] Recommended Bone Density Last Documented On 1 9:13AM ; [facility] Recommended Colonoscopy Pt r eferred to Gastroenetrologist. Pt understands that recommendation for colonoscopy is every 10 years after the age of 50 or age of 40 if first degree relative with history of colon cancer. Patient understands that failure to follow recommendation can lead to delayed diagnosis of colon cancer and patient accepts all responsibility regarding scheduling and follow up with land classifier Last Documented On 1 9:13AM ; [facility] Instructions for patient : B reast Self Exam discussed. Reviewed monthly self breast examination and technique Last Documented On 0 11:59AM ; [facility] Recommend diet and exercise at least 30 min three times per week Last Documented On 0 11:59AM ; [facility] Discussed Gardasil vaccinati on and recommend vaccination for HPV prevention. Handout given. Patient undertsands sexual transmission of high-risk HPV and association with abnormal pap smear and cervical cancer. recommend to decrease high risk behaviors such as: number of sexual partners, smoking, and contraceptive use Last Documented On 0 11:59AM ; [facility] Recommend preventative vacci nation including but not limited to influenza/flu vaccine, DTP, Rubella, Hepatitis B vaccination series Last Documented On 0 11:59AM ; [facility] Recommend annual pap smear e xamination or every three year if high risk hpv negative and 3 consecutive normal pap examination during preceding three years Last Documented On 0 11:59AM ; [facility] Recommend TSH, fasting gluco se, fasting lipid panel, CBC, BMP Last Documented On 0 11:59AM ; [facility] Recommend Calcium supplement ation and weight bearing exercise Last Documented On 0 11:59AM ; [facility] Recommended Bone Density Last Documented On 0 11:59AM ; [facility] Recommended Colonoscopy Pt r eferred to Gastroenetrologist. Pt understands that recommendation for colonoscopy is every 10 years after the age of 50 or age of 40 if first degree relative with history of colon cancer. Patient understands that failure to follow recommendation can lead to delayed diagnosis of colon cancer and patient accepts all responsibility regarding scheduling and follow up with land classifier Last Documented On 0 11:59AM ; [facility] Education and Decision Aids were provided during visit for: Patient Education: Daily breanne cium and vitamin D Last Documented On 8 1:28PM ; [facility] Patient Education: weight be aring exercise Last Documented On 8 1:28PM ; [facility] Patient Education: Daily breanne cium and vitamin D Last Documented On 4 9:46AM ; [facility] Patient Education: weight be aring exercise Last Documented On 4 9:46AM ; [facility] Candidiasis Vulvovaginitis I nformation Sheet Given Last Documented On 4 10:23AM ; [facility] Medical Equipment - Implanted Devices Includes: Current and historical Devices No Medical Equipment Recorded Medications Includes: Current and historical Medications Current Medications (continue as prescribed) Simvastatin 20MG Oral Tablet 10/31/2017 Provider: Diagnosis: Last Documented On 10/31/2017 1:41PM By DENNISE ZELAYA CMA ; [facility] Hydrocodone-Acetaminophen 10-325MG Oral Tablet 018 Provider: Diagnosis: Last Documented On 10/31/2017 1:41PM By DENNISE ZELAYA CMA ; [facility] DULoxetine HCl 20MG Oral Capsule Delayed Release Parti cles 10/31/2017 Provider: Diagnosis: Last Documented On 10/31/2017 1:40PM By DENNISE ZELAYA CMA ; [facility] Gabapentin 800MG Oral Tablet 10/31/2017 Provider: Diagnosis: Last Documented On 10/31/2017 1:41PM By DENNISE ZELAYA CMA ; [facility] TraZODone HCl 50MG Oral Tablet 10/31/2017 Provider: Diagnosis: Last Documented On 10/31/2017 1:41PM By DENNISE ZELAYA CMA ; [facility] Levothyroxine Sodium 100MCG Oral Tablet 10/31/2017 [place] gilder: Diagnosis: Last Documented On 10/31/2017 1:38PM By DENNISE ZELAYA CMA ; [facility] Sertraline HCl 100MG Oral Tablet 10/31/2017 Provider : Diagnosis: Last Documented On 10/31/2017 1:39PM By DENNISE ZELAYA CMA ; [facility] Spironolactone 100MG Oral Tablet 10/31/2017 Provider : Diagnosis: Last Documented On 10/31/2017 1:39PM By DENNISE ZELAYA CMA ; [facility] Benazepril-hydroCHLOROthiazide 20-25 MG TABS 2 Provider: TOM KING MD Diagnosis: Last Documented On 2 9:10AM By JACQUE ASHER MA ; [facility] Gabapentin 800 MG OR TABS 05/17/2012 Provider: RAHEL KING MD Diagnosis: Last Documented On 2 9:10AM By JACQUE ASHER MA ; [facility] Levothroid 25 MCG OR TABS 06/01/2011 Provider: Diagnosis: Last Documented On 1 9:20AM By DR. CLAUDIO ROSARIO ; [facility] Zetia 10 MG OR TABS 06/01/2011 Provider: Diagnosis: Last Documented On 1 9:22AM By DR. CLAUDIO ROSARIO ; [facility] PA Vitamin D-3 50 MCG (1999) OR CAPS 06/01/2011 [place] gilder: Diagnosis: Last Documented On 1 9:23AM By DR. CLAUDIO ROSARIO ; [facility] Zegerid 40-1100 MG OR CAPS 05/19/2010 Provider: Diagnosis: Last Documented On 0 11:15AM By CRYSTAL SALCEDO MA ; [facility] Zoloft 100 MG OR TABS 05/19/2010 Provider: Diagnosis: Last Documented On 0 11:12AM By CRYSTAL SALCEDO MA ; [facility] Past Medications on file Terazol 7 0.4% [facility] 10/04/2013 - 11/03/2013 Provider: CELESTINO HESTER Diagnosis: CANDIDAL VULVOVA GINITIS one applicator full pv q hs x 7 nocs Last Documented On 4 10:21AM By CELESTINO HESTER ; [facility] Nystatin [id number] UNIT/GM EX CREA 10/04/2013 - 11/03/2013 Provider: [facility] Diagnosis: CANDIDAL VULVOVA GINITIS apply to vulva bid prn Last Documented On 4 10:22AM By [facility]INO [facility] ; [facility] Neurontin 800 MG OR TABS 06/01/2011 - 10/04/2013 Provi terrance: Diagnosis: Last Documented On 4 10:02AM By BUTCH KWOK ; [facility] Nystatin-Triamcinolone 118462-0.1 UNIT/GM-% EX CREA 06/01/2011 - 08/30/2011 Provider: CLAUDIO ROSARIO M.D. Diagnosis: CUTANEOUS CANDIDIASIS apply ample amount to area BID Last Documented On 1 9:34AM By DR. CLAUDIO ROSARIO ; [facility] Zebeta 10 MG OR TABS 05/19/2010 - 06/01/2011 Provider: Diagnosis: Last Documented On 1 9:22AM By DR. CLAUDIO ROSARIO ; [facility] chlordiazePOXIDE HCl 25 MG OR CAPS 05/19/2010 - 2013 Provider: Diagnosis: Last Documented On 4 10:03AM By BUTCH KWOK ; [facility] Propoxacet-N 100-650 MG OR TABS 05/19/2010 - 1 Provider: Diagnosis: Last Documented On 1 9:04AM By CRYSTLA SALCEDO MA ; [facility] Darvocet-N 100 100-650 MG OR TABS 05/19/2010 - 011 Provider: Diagnosis: Last Documented On 1 9:03AM By CRYSTAL SALCEDO MA ; [facility] traMADol HCl 50 MG OR TABS 05/19/2010 - 06/01/2011 Pro vider: Diagnosis: Last Documented On 1 9:03AM By CRYSTAL SALCEDO MA ; [facility] Neurontin 300 MG OR CAPS 05/19/2010 - 06/01/2011 Provi terrance: Diagnosis: Last Documented On 1 9:17AM By DR. CLAUDIO ROSARIO ; [facility] Levothyroxine Sodium 100 MCG OR TABS 05/19/2010 - 05/22 Provider: Diagnosis: Last Documented On 1 9:20AM By DR. CLAUDIO ROSARIO ; [facility] Medications Administered Includes: Administered Medications in patient's chart No Administered Medications Recorded Results Includes: Results from 08/01/2023 through 08/01/2024 No Results Recorded For Specified Dates History of Present Illness History of Present Illness not supported for this document type No History of Present Illness Recorded Social History Description Last Updated Marital history -3 years 11/01/19 18 Last Documented On 8 2:05PM ; [facility] Non-smoker 10/31/2017 Last Documented On 8 2:05PM ; [facility] Not using alcohol 10/31/2017 Last Documented On 8 2:05PM ; [facility] Not using drugs 10/31/2017 Last Documented On 8 2:05PM ; [facility] Smoking status : Former smoker 8 Last Documented On 8 2:05PM ; [facility] Age of 1st intercourse was was 17 2009 Last Documented On 0 12:23PM ; [facility] Procedures and Surgical History Surgical History Last Updated Surgical / procedural history both rotor cuffs ~cateract 10/04/2013 Last Documented On 4 10:23AM ; [facility] Bilateral salpingo-oophorectomy 05/19/20 10 Last Documented On 0 12:23PM ; [facility] Dilation + Curettage 05/19/2010 Last Documented On 0 12:23PM ; [facility] History of appendectomy 05/19/2010 Last Documented On 0 12:23PM ; [facility] History of hysterectomy 05/19/2010 Last Documented On 0 12:23PM ; [facility] History of total abdominal hysterectomy 05/19/2010 Last Documented On 0 12:23PM ; [facility] Medical History Includes: Medical History in patient's chart Description Last Updated Vaginal delivery 10/31/2017 Last Documented On 8 2:05PM ; [facility] History of hypothyroidism 10/31/2017 Last Documented On 8 2:05PM ; [facility] History of complete colonoscopy 2013 wnl repeat in 10 years at [facility] 10/31/2017 Last Documented On 8 2:05PM ; [facility] Result: normal @Dr Tom King 2017 Last Documented On 8 2:05PM ; [facility] History of screening mammogram was perfo rmed 05/201710/31/2017 Last Documented On 8 2:05PM ; [facility] History of a DXA of the late ral lumbar spine was performed 06/22/2011 osteopenia 10/31/2017 Last Documented On 8 2:05PM ; [facility] Arthritis 06/07/2012 Last Documented On 2 9:31AM ; [facility] Aborta 2 05/19/2010 Last Documented On 0 12:23PM ; [facility] 4 05/19/2010 Last Documented On 0 12:23PM ; [facility] History of breast fibrocystic disease Last Documented On 0 12:23PM ; [facility] History of depression 05/19/2010 Last Documented On 0 12:23PM ; [facility] History of hyperlipidemia 05/19/2010 Last Documented On 0 12:23PM ; [facility] History of hyperthyroidism 05/19/2010 Last Documented On 0 12:23PM ; [facility] History of irritable bowel syndrome 04/23 Last Documented On 0 12:23PM ; [facility] History of thyroid disorder 05/19/2010 Last Documented On 0 12:23PM ; [facility] LMP: 197705/19/2010 Last Documented On 0 12:23PM ; [facility] Para 2 05/19/2010 Last Documented On 0 12:23PM ; [facility] 1977- hyst/ RSO ~1993- lap exam LSO ~IBS ~rotator cuff 12/08/2009 Last Documented On 0 1:23PM ; [facility] Status post hysterectomy 12/08/2009 Last Documented On 0 1:23PM ; [facility] Family History Includes: Family History in patient's chart Description Last Updated Family history changed 3 yea rs ago 10/31/2017 Last Documented On 8 2:05PM ; [facility] sister had ca of jaw ~Father had prostat e ca ~brother testicular ca 10/31/2017 Last Documented On 8 2:05PM ; [facility] Family history of malignant female breast neoplasm sister ~1st cousin and sister both had irregular cells 10/31/2017 Last Documented On 8 2:05PM ; [facility] Maternal history of diabetes mellitus both sides-mother, sister and brother 10/31/2017 Last Documented On 8 2:05PM ; [facility] Sororal history of family history of hea rt disease sister 10/31/2017 Last Documented On 8 2:05PM ; [facility] Family history of diabetes mellitus both sides 10/04/2013 Last Documented On 4 10:23AM ; [facility] Spouse name: [place] 05/19/2010 Last Documented On 0 12:23PM ; [facility] Family history of Cancer breast(sister, niece), prostate(dad) 12/08/2009 Last Documented On 0 1:23PM ; [facility] Family history of Diabetes (M, sister) 0 12/08/2009 Last Documented On 0 1:23PM ; [facility] Family history of thyroid disease (M) Last Documented On 0 1:23PM ; [facility] Family medical history of high blood pre ssure (sister) 12/08/2009 Last Documented On 0 1:23PM ; [facility] Review of Systems Review of Systems not supported for this document type No Review of Systems Recorded Mental Status No Mental Status Recorded Functional Status No Functional Status Recorded Physical Exam Physical Exam not supported for this document type No Physical Exam Recorded Immunizations Includes: Immunizations in patient's chart Vaccine Dose # Date Site Reaction(s) Status Source DTaP 1 Complete (Reported) Rosalee ent Last Documented On 1 9:34AM ; [facility] Td 1 Complete (Reported) Rosalee ent Last Documented On 1 9:34AM ; [facility] Allergies Includes: Active, inactive, and resolved Allergies Substance Type Reaction Onset Date Resolved Date Statu s BEES Allergy 12/08/2009 Active Last Documented On 0 1:19PM ; [facility] Aspirin Allergy 12/08/2009 Active Last Documented On 0 1:18PM ; [facility] Insurance Includes: Active Insurance Policies Plan Name Member ID Group # Subscriber Relationship Effect unique Dates 1 - AETNA MEBMZYQW [id number] [employer] Self Clinical Notes Includes: Signed Clinical Notes starting from 09/10/2022 No Clinical Notes Recorded
--- OUTSIDE RECORDS SUMMARY | 2024-08-01 00:01 | XMS_ITS | Clinical Summary ---
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 Active Last Documented On 06/07/2012 9:31AM ; [facility] Note: DOES NOT DESIRE INTERVENTION ESOPHAGEAL REFLUX 06/01/2011 CLAUDIO ROSARIO M.D. Active Last Documented On 1 9:18AM ; [facility] HYPERLIPIDEMIA NEC/NOS 06/01/2011 CLAUDIO DELUCA M.D. Active Last Documented On 1 9:23AM ; [facility] HYPOTHYROIDISM NOS 06/01/2011 CLAUDIO Mayers M.D. Active Last Documented On 1 9:20AM ; [facility] Osteopenia 05/19/2010 CELESTINO RICE LEANN- Act unique Last Documented On 10/31/2017 1:51PM ; [facility] Note: h/o of ankel fracture Arthritis 12/08/2009 CLAUDIO ROSARIO M.D. A ctive Last Documented On 0 1:16PM ; [facility] Irritable Bowel Syndrome 12/08/2009 CLAUDIO SOMERS M.D. Active Last Documented On 0 1:15PM ; [facility] Fibromyalgia 12/08/2009 CLAUDIO ROSARIO M.D. Active Last Documented On 0 1:15PM ; [facility] Plan of Treatment No Plan of Treatment Recorded Assessments Includes: Assessments from this encounter No Assessments Recorded Medical Equipment - Implanted Devices Includes: Current Devices No Medical Equipment Recorded Medications Includes: Medications discussed during this encounter and other current Medications Current Medications (continue as prescribed) Simvastatin 20MG Oral Tablet 10/31/2017 Provider: Diagnosis: Last Documented On 10/31/2017 1:41PM By DENNISE ZELAYA CMA ; [facility] Hydrocodone-Acetaminophen 10-325MG Oral Tablet 018 Provider: Diagnosis: Last Documented On 10/31/2017 1:41PM By DENNISE ZELAYA CMA ; [facility] DULoxetine HCl 20MG Oral Capsule Delayed Release Parti cles 10/31/2017 Provider: Diagnosis: Last Documented On 10/31/2017 1:40PM By DENNISE ZELAYA CMA ; [facility] Gabapentin 800MG Oral Tablet 10/31/2017 Provider: Diagnosis: Last Documented On 10/31/2017 1:41PM By DENNISE ZELAYA CMA ; [facility] TraZODone HCl 50MG Oral Tablet 10/31/2017 Provider: Diagnosis: Last Documented On 10/31/2017 1:41PM By DENNISE ZELAYA CMA ; [facility] Levothyroxine Sodium 100MCG Oral Tablet 10/31/2017 [place] gregory: Diagnosis: Last Documented On 10/31/2017 1:38PM By DENNISE ZELAYA CMA ; [facility] Sertraline HCl 100MG Oral Tablet 10/31/2017 Provider : Diagnosis: Last Documented On 10/31/2017 1:39PM By DENNISE ZELAYA CMA ; [facility] Spironolactone 100MG Oral Tablet 10/31/2017 Provider : Diagnosis: Last Documented On 10/31/2017 1:39PM By DENNISE ZELAYA CMA ; [facility] Benazepril-hydroCHLOROthiazide 20-25 MG TABS 2 Provider: TOM AGUILERA MD Diagnosis: Last Documented On 2 9:10AM By JACQUE ASHER MA ; [facility] Gabapentin 800 MG OR TABS 05/17/2012 Provider: RAHEL AGUILERA MD Diagnosis: Last Documented On 2 9:10AM By JACQUE ASHER MA ; [facility] Levothroid 25 MCG OR TABS 06/01/2011 Provider: Diagnosis: Last Documented On 1 9:20AM By DR. CLAUDIO ROSARIO ; [facility] Zetia 10 MG OR TABS 06/01/2011 Provider: Diagnosis: Last Documented On 1 9:22AM By DR. CLAUDIO ROSARIO ; [facility] PA Vitamin D-3 50 MCG (1999) OR CAPS 06/01/2011 P louiseder: Diagnosis: Last Documented On 1 9:23AM By DR. CLAUDIO ROSARIO ; [facility] Zegerid 40-1100 MG OR CAPS 05/19/2010 Provider: Diagnosis: Last Documented On 0 11:15AM By CRYSTAL SALCEDO MA ; [facility] Zoloft 100 MG OR TABS 05/19/2010 Provider: Diagnosis: Last Documented On 0 11:12AM By CRYSTAL SALCEDO MA ; [facility] Medications Administered Includes: Administered Medications from this encounter No Administered Medications Recorded Results Includes: Results discussed during this encounter No Results Recorded For Specified Dates History of Present Illness Includes: History of Present Illness from this encounter No History of Present Illness Recorded Social History No Social History Recorded - Smoking Status Unknown Medical History Includes: Medical History addressed during this encounter No Medical History Recorded Family History Includes: Family History addressed during this encounter No Family History Recorded Review of Systems Includes: Review of Systems from this encounter No Review of Systems Recorded Mental Status Includes: Mental Status from this encounter No Mental Status Recorded Functional Status Includes: Functional Status from this encounter No Functional Status Recorded Physical Exam Includes: Physical Exam from this encounter No Physical Exam Recorded Allergies Includes: Active Allergies Substance Type Reaction Onset Date Resolved Date Statu s BEES Allergy 12/08/2009 Active Last Documented On 0 1:19PM ; [facility] Aspirin Allergy 12/08/2009 Active Last Documented On 0 1:18PM ; [facility] Insurance Includes: Active Insurance Policies Plan Name Member ID Group # Subscriber Relationship Effect unique Dates 1 - AETNA MEBMZYQW [id number] [employer] Self Clinical Notes Includes: Clinical Notes from this encounter No Clinical Notes Recorded
--- OUTSIDE RECORDS SUMMARY | 2024-08-01 00:01 | XMS_ITS | Clinical Summary ---
Author Organization [facility] Address [address] [place] [address] Phone Care Team Providers Care Lidder Name Role Phone UMM BECKETT MD Primary Care Provider [phone] Reason for Visit and Chief Complaint Pt presents for problem in addition to annual exam - The Chief Complaint is: Annual-left breast swelling and tenderness. Pt denies nipple d/c. 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 Past Visits Onset Date Resolved Date Provider Condition Status FEM STRESS INCONTINENCE 06/07/2012 CLAUDIO ROSARIO M.D. Active Last Documented On 06/07/2012 9:31AM ; [facility] Note: DOES NOT DESIRE INTERVENTION ESOPHAGEAL REFLUX 06/01/2011 CLAUDIO ROSARIO M.D. Active Last Documented On 1 9:18AM ; [facility] HYPERLIPIDEMIA NEC/NOS 06/01/2011 CLAUDIO DELUCA M.D. Active Last Documented On 1 9:23AM ; [facility] HYPOTHYROIDISM NOS 06/01/2011 CLAUDIO Mayers M.D. Active Last Documented On 1 9:20AM ; [facility] Osteopenia 05/19/2010 CELESTINO RICE LILIABC Act unique Last Documented On 10/31/2017 1:51PM ; [facility] Note: h/o of ankel fracture Arthritis 12/08/2009 CLAUDIO ROSARIO M.D. A ctive Last Documented On 0 1:16PM ; [facility] Irritable Bowel Syndrome 12/08/2009 CLAUDIO SOMERS M.D. Active Last Documented On 0 1:15PM ; [facility] Fibromyalgia 12/08/2009 CLAUDIO ROSARIO M.D. Active Last Documented On 0 1:15PM ; [facility] Plan of Treatment - Follow-up visit 1 year or as needed - Last Documented On 10/31/2017 2:05PM ; [facility] - Clinical summary provided to patient - Last Documented On 10/31/2017 2:05PM ; [facility] Pending Tests Order Diagnosis Results Due Ordering P rovider Radiology @ other D[facility] (to be scheduled) Oth disrd of bone density and structure, unspecified site 11/14/[address] [facility]- Last Documented On 0 12:47PM ; [facility] Instructions to patient Instructions for patient : B reast Self Exam discussed Last Documented On 8 1:28PM ; [facility] Instructions for patient Breanne l for any palpable lumps Last Documented On 8 1:46PM ; [facility] Lose weight Last Documented On 8 1:29PM ; [facility] Instructed to decrease carbo nation and caffeine Last Documented On 8 1:46PM ; [facility] Instructions For Patient: Mo nthly Self Breast Exam Last Documented On 8 1:46PM ; [facility] Colonoscopy Handout given to patient Last Documented On 8 1:29PM ; [facility] Education and Decision Aids were provided during visit for: Patient Education: Daily breanne cium and vitamin D Last Documented On 8 1:28PM ; [facility] Patient Education: weight be aring exercise Last Documented On 8 1:28PM ; [facility] Assessments Includes: Assessments from this encounter Findings - Fibrocystic disease of breast - Last Documented On 10/31/2017 2:05PM ; [facility] - NORMAL FEMALE EXAM - Last Documented On 10/31/2017 2:05PM ; [facility] - Screening Malig. Neoplasm Rectum - Last Documented On 10/31/2017 2:05PM ; [facility] Instructions Includes: Instructions from this encounter Instructions to patient Instructions for patient : B reast Self Exam discussed Last Documented On 8 1:28PM ; [facility] Instructions for patient Breanne l for any palpable lumps Last Documented On 8 1:46PM ; [facility] Lose weight Last Documented On 8 1:29PM ; [facility] Instructed to decrease carbo nation and caffeine Last Documented On 8 1:46PM ; [facility] Instructions For Patient: Mo nthly Self Breast Exam Last Documented On 8 1:46PM ; [facility] Colonoscopy Handout given to patient Last Documented On 8 1:29PM ; [facility] Education and Decision Aids were provided during visit for: Patient Education: Daily breanne cium and vitamin D Last Documented On 8 1:28PM ; [facility] Patient Education: weight be aring exercise Last Documented On 8 1:28PM ; [facility] Medical Equipment - Implanted Devices Includes: Current Devices No Medical Equipment Recorded Medications Includes: Medications discussed during this encounter and other current Medications Current Medications (continue as prescribed) Simvastatin 20MG Oral Tablet 10/31/2017 Provider: Diagnosis: Last Documented On 10/31/2017 1:41PM By DENNISE ZELAYA CMA ; [facility] Hydrocodone-Acetaminophen 10-325MG Oral Tablet 018 Provider: Diagnosis: Last Documented On 10/31/2017 1:41PM By DENNISE ZELAYA CMA ; [facility] DULoxetine HCl 20MG Oral Capsule Delayed Release Parti cles 10/31/2017 Provider: Diagnosis: Last Documented On 10/31/2017 1:40PM By DENNISE ZELAYA CMA ; [facility] Gabapentin 800MG Oral Tablet 10/31/2017 Provider: Diagnosis: Last Documented On 10/31/2017 1:41PM By DENNISE ZELAYA CMA ; [facility] TraZODone HCl 50MG Oral Tablet 10/31/2017 Provider: Diagnosis: Last Documented On 10/31/2017 1:41PM By DENNISE ZELAYA CMA ; [facility] Levothyroxine Sodium 100MCG Oral Tablet 10/31/2017 P rovider: Diagnosis: Last Documented On 10/31/2017 1:38PM By DENNISE ZELAYA CMA ; [facility] Sertraline HCl 100MG Oral Tablet 10/31/2017 Provider : Diagnosis: Last Documented On 10/31/2017 1:39PM By DENNISE ZELAYA CMA ; [facility] Spironolactone 100MG Oral Tablet 10/31/2017 Provider : Diagnosis: Last Documented On 10/31/2017 1:39PM By DENNISE ZELAYA CMA ; [facility] Benazepril-hydroCHLOROthiazide 20-25 MG TABS 2 Provider: SYLVESTER KING MD Diagnosis: Last Documented On 2 9:10AM By JACQUE ASHER MA ; [facility] Gabapentin 800 MG OR TABS 05/17/2012 Provider: RAHEL KING MD Diagnosis: Last Documented On 2 9:10AM By JACQUE ASHER MA ; [facility] Levothroid 25 MCG OR TABS 06/01/2011 Provider: Diagnosis: Last Documented On 1 9:20AM By DR. CLAUDIO ROSARIO ; [facility] Zetia 10 MG OR TABS 06/01/2011 Provider: Diagnosis: Last Documented On 1 9:22AM By DR. CLAUDIO ROSARIO ; [facility] PA Vitamin D-3 50 MCG (1999) OR CAPS 06/01/2011 P rovider: Diagnosis: Last Documented On 1 9:23AM By DR. CLAUDIO ROSARIO ; [facility] Zegerid 40-1100 MG OR CAPS 05/19/2010 Provider: Diagnosis: Last Documented On 0 11:15AM By CRYSTAL SALCEDO MA ; [facility] Zoloft 100 MG OR TABS 05/19/2010 Provider: Diagnosis: Last Documented On 0 11:12AM By CRYSTAL SALCEDO MA ; [facility] Past Medications on file Terazol 7 0.4% VA CREA 10/04/2013 - 11/03/2013 Provider: CELESTINO RICE [facility]- Diagnosis: CANDIDAL VULVOVA GINITIS one applicator full pv q hs x 7 nocs Last Documented On 4 10:21AM By CELESTINO HESTER ; [facility] Nystatin 048664 UNIT/GM EX CREA 10/04/2013 - 11/03/2013 Provider: CELESTINO HESTER Diagnosis: CANDIDAL VULVOVA GINITIS apply to vulva bid prn Last Documented On 4 10:22AM By CELESTINO HESTER ; [facility] Nystatin-Triamcinolone 606655-9.1 UNIT/GM-% EX CREA 06/01/2011 - 08/30/2011 Provider: CLAUDIO ROSARIO M.D. Diagnosis: CUTANEOUS CANDIDIASIS apply ample amount to area BID Last Documented On 1 9:34AM By DR. CLAUDIO ROSARIO ; [facility] Medications Administered Includes: Administered Medications from this encounter No Administered Medications Recorded Vital Signs Includes: Vital Signs from this encounter Vital Name 10/31/2017 01:40P Blood Pressure Sitting L 128/70 BP Cuff Size Large Height (in) 64 Weight (lb) 206 Body Mass Index (kg/m2) 35.4 Body Surface Area (m2) 2.0 Last Documented: On 10/31/2017 1:44PM ; [facility] Results Includes: Results discussed during this encounter No Results Recorded For Specified Dates History of Present Illness Includes: History of Present Illness from this encounter KARENA POP is a 67 year old female. - Medication list reviewed - PRIMARY CARE PROVIDER : Dr Sylvester Jeffrey - Menopause has occurred Social History Description Last Updated Marital history -3 years 11/01/19 18 Last Documented On 8 2:05PM ; [facility] Non-smoker 10/31/2017 Last Documented On 8 2:05PM ; [facility] Not using alcohol 10/31/2017 Last Documented On 8 2:05PM ; [facility] Not using drugs 10/31/2017 Last Documented On 8 2:05PM ; [facility] Smoking status : Former smoker 8 Last Documented On 8 2:05PM ; [facility] Age of 1st intercourse was was 17 2009 Last Documented On 8 1:33PM ; [facility] Procedures and Surgical History Includes: Procedures from this encounter Procedures Code Diagnosis Performing Provider Service L ocation Service Date low fat diet Last Documented On 8 1:29PM ; [facility] Pap smear not done 40700 Last Documented On 8 1:28PM ; [facility] fecal occult blood test was negative 79167 Last Documented On 8 1:28PM ; [facility] Surgical History Last Updated Surgical / procedural history both rotor cuffs ~cateract 10/04/2013 Last Documented On 8 1:33PM ; [facility] Bilateral salpingo-oophorectomy 05/19/20 Last Documented On 8 1:33PM ; [facility] Dilation + Curettage 05/19/2010 Last Documented On 8 1:33PM ; [facility] History of appendectomy 05/19/2010 Last Documented On 8 1:33PM ; [facility] History of hysterectomy 05/19/2010 Last Documented On 8 1:33PM ; [facility] History of total abdominal hysterectomy 05/19/2010 Last Documented On 8 1:33PM ; [facility] Medical History Includes: Medical History addressed during this encounter Description Last Updated Vaginal delivery 10/31/2017 Last Documented On 8 2:05PM ; [facility] History of hypothyroidism 10/31/2017 Last Documented On 8 2:05PM ; [facility] History of complete colonoscopy 2013 wnl repeat in [address] [facility] 10/31/2017 Last Documented On 8 2:05PM ; [facility] Result: normal @Dr Sylvester King 2017 Last Documented On 8 2:05PM ; [facility] History of screening mammogram was perfo rmed 05/201710/31/2017 Last Documented On 8 2:05PM ; [facility] History of a DXA of the late ral lumbar spine was performed 06/22/2011 osteopenia 10/31/2017 Last Documented On 8 2:05PM ; [facility] Arthritis 06/07/2012 Last Documented On 8 1:33PM ; [facility] Aborta 2 05/19/2010 Last Documented On 8 1:33PM ; [facility] 4 05/19/2010 Last Documented On 8 1:33PM ; [facility] History of depression 05/19/2010 Last Documented On 8 1:33PM ; [facility] History of fibrocystic disease of breast 05/19/2010 Last Documented On 8 1:33PM ; [facility] History of hyperlipidemia 05/19/2010 Last Documented On 8 1:33PM ; [facility] History of irritable bowel syndrome 04/23 Last Documented On 8 1:33PM ; [facility] History of thyroid disorder 05/19/2010 Last Documented On 8 1:33PM ; [facility] LMP: 1978 05/19/2010 Last Documented On 8 1:33PM ; [facility] Para 2 05/19/2010 Last Documented On 8 1:33PM ; [facility] 1977- hyst/ RSO ~1994- lap exam LSO ~IBS ~rotator cuff 12/08/2009 Last Documented On 8 1:33PM ; [facility] Status post hysterectomy 12/08/2009 Last Documented On 8 1:33PM ; [facility] Family History Includes: Family History addressed during this encounter Description Last Updated Family history changed 3 yea rs ago 10/31/2017 Last Documented On 8 2:05PM ; [facility] sister had ca of jaw ~Father had prostat e ca ~brother testicular ca 10/31/2017 Last Documented On 8 2:05PM ; [facility] Family history of malignant female breast neoplasm sister ~1st cousin and sister both had irregular cells 10/31/2017 Last Documented On 8 2:05PM ; [facility] Maternal history of diabetes mellitus both sides-mother, sister and brother 10/31/2017 Last Documented On 8 2:05PM ; [facility] Sororal history of family history of hea rt disease sister 10/31/2017 Last Documented On 8 2:05PM ; [facility] Family history of Cancer breast(sister, niece), prostate(dad) 12/08/2009 Last Documented On 8 1:33PM ; [facility] Family history of Diabetes (M, sister) 0 12/08/2009 Last Documented On 8 1:33PM ; [facility] Family history of thyroid disease (M) Last Documented On 8 1:33PM ; [facility] Family medical history of high blood pre ssure (sister) 12/08/2009 Last Documented On 8 1:33PM ; [facility] Review of Systems Includes: Review of Systems from this encounter Systemic: Not feeling poorly (malaise). No fever. Head: No headache. Neck: No lump or swelling in the neck. Eyes: No vision problems. Otolaryngeal: No tinnitus. Breasts: Left breast symptoms. No breast lump, no change in the skin of the breast, no nipple discharge, no inversion of the nipple, and no reddening of the breast. Breast swelling of left breast. No breast warmth and no itching of breast. Pain in breast. No breast enlargement and patient performs self breast exams. Cardiovascular: No chest pain or discomfort. Pulmonary: No dyspnea and no cough. Gastrointestinal: Normal appetite, no dysphagia, and no heartburn. No nausea, no vomiting, no abdominal pain, and no melena. No diarrhea. No pelvic pain. Genitourinary: No postmenopausal bleeding. No vaginal discharge. Endocrine: No excessive sweating. Musculoskeletal: No muscle aches. Neurological: No motor disturbances and no sensory disturbances. Psychological: No sleep disturbances. Skin: No skin lesions. Mental Status Includes: Mental Status from this encounter No Mental Status Recorded Functional Status Includes: Functional Status from this encounter No Functional Status Recorded Physical Exam Includes: Physical Exam from this encounter Allergies Includes: Active Allergies Substance Type Reaction Onset Date Resolved Date Statu s BEES Allergy 12/08/2009 Active Last Documented On 0 1:19PM ; [facility] Aspirin Allergy 12/08/2009 Active Last Documented On 0 1:18PM ; [facility] Encounters Encounter Provider Location Date Check-In Time Check-Out Time Diagnosis NEW ADMINISTRATION MANAGER EXAM CELESTINO RICE [facility] ENTRY 11/01/19 18 1:18PM 2:09PM Screening Malig. Neoplasm Rectum,Normal Female Exam,Breast Fibrocystic Disease Insurance Includes: Active Insurance Policies Plan Name Member ID Group # Subscriber Relationship Effect unique Dates 1 - AET [id number] [employer]AL [employer]AMS Self Clinical Notes Includes: Clinical Notes from this encounter No Clinical Notes Recorded
--- OUTSIDE RECORDS SUMMARY | 2024-08-01 00:02 | XMS_ITS ---
Author Organization [facility] Address [address] [place] [address] Care Team Providers Care Slicer Machine Operator Name Role Phone Martha Handley Primary Care Provider [phone] MEDICATIONS Medication SIG (Take, Route, Frequency, Duration) Notes Start Date End Date Status Fluticasone Propionate 50 MCG/ACT 1 spray in each nostril Nasally twice a day for 30 days pt request to change to prn 08/31/2023 Active Encounters Encounter Location Date Provider Diagnosis [place] [address] [place] [address] 01/06/2024 Martha Handley PLAN OF TREATMENT Medication Medication Name Sig Start Date Stop Date Notes Fluticasone Propionate 50 MCG/ACT 1 spray in each nostril Nasally twice a day for 30 days 08/31/2023 pt request to change to prn Progress Notes * Zully UGALDEOB:1950 (73 yo F)Acc No.[id number]:01/06/2024 Patient:??Ilene UGALDE :1950?Age:73 Y?Sex:Fe male Address:[address], [place] [address] * Refills?? Refill Fluticasone Propionate Suspension, 50 MCG/ACT, Nasally, 1 each, 1 spray in each nostril, twice a day, 30 days, Refills=5 * true * Date:??
--- OUTSIDE RECORDS SUMMARY | 2024-08-01 00:02 | XMS_ITS | Clinical Summary ---
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 Active Last Documented On 06/07/2012 9:31AM ; [facility] Note: DOES NOT DESIRE INTERVENTION ESOPHAGEAL REFLUX 06/01/2011 CLAUDIO ROSARIO M.D. Active Last Documented On 1 9:18AM ; [facility] HYPERLIPIDEMIA NEC/NOS 06/01/2011 CLAUDIO DELUCA M.D. Active Last Documented On 1 9:23AM ; [facility] HYPOTHYROIDISM NOS 06/01/2011 CLAUDIO Mayers M.D. Active Last Documented On 1 9:20AM ; [facility] Osteopenia 05/19/2010 CELESTINO RICE LEANN- Act unique Last Documented On 10/31/2017 1:51PM ; [facility] Note: h/o of ankel fracture Arthritis 12/08/2009 CLAUDIO ROSARIO M.D. A ctive Last Documented On 0 1:16PM ; [facility] Irritable Bowel Syndrome 12/08/2009 CLAUDIO SOMERS M.D. Active Last Documented On 0 1:15PM ; [facility] Fibromyalgia 12/08/2009 CLAUDIO ROSARIO M.D. Active Last Documented On 0 1:15PM ; [facility] Plan of Treatment No Plan [...] 10/31/2017 1:41PM By DENNISE ZELAYA CMA ; [facility] Hydrocodone-Acetaminophen 10-325MG Oral Tablet 018 Provider: Diagnosis: Last Documented On 10/31/2017 1:41PM By DENNISE ZELAYA CMA ; [facility] DULoxetine HCl 20MG Oral Capsule Delayed Release Parti cles 10/31/2017 Provider: Diagnosis: Last Documented On 10/31/2017 1:40PM By DENNISE ZELAYA CMA ; [facility] Gabapentin 800MG Oral Tablet 10/31/2017 Provider: Diagnosis: Last Documented On 10/31/2017 1:41PM By DENNISE ZELAYA CMA ; [facility] TraZODone HCl 50MG Oral Tablet 10/31/2017 Provider: Diagnosis: Last Documented On 10/31/2017 1:41PM By DENNISE ZELAYA CMA ; [facility] Levothyroxine Sodium 100MCG Oral Tablet 10/31/2017 [place] gregory: Diagnosis: Last Documented On 10/31/2017 1:38PM By DENNISE ZELAYA CMA ; [facility] Sertraline HCl 100MG Oral Tablet 10/31/2017 Provider : Diagnosis: Last Documented On 10/31/2017 1:39PM By DENNISE ZELAYA CMA ; [facility] Spironolactone 100MG Oral Tablet 10/31/2017 Provider : Diagnosis: Last Documented On 10/31/2017 1:39PM By DENNISE ZELAYA CMA ; [facility] Benazepril-hydroCHLOROthiazide 20-25 MG TABS 2 Provider: TOM AGUILERA MD Diagnosis: Last Documented On 2 9:10AM By JACQUE ASHER MA ; [facility] Gabapentin 800 MG OR TABS 05/17/2012 Provider: RAHEL AGUILERA MD Diagnosis: Last Documented On 2 9:10AM By JACQUE AHSER MA ; [facility] Levothroid 25 MCG OR TABS 06/01/2011 Provider: Diagnosis: Last Documented On 1 9:20AM By DR. CLAUDIO ROSARIO ; [facility] Zetia 10 MG OR TABS 06/01/2011 Provider: Diagnosis: Last Documented On 1 9:22AM By DR. CLAUDIO ROSARIO ; [facility] PA Vitamin D-3 50 MCG (1999) OR CAPS 06/01/2011 P louiseder: Diagnosis: Last Documented On 1 9:23AM By DR. CLAUDIO ROSARIO ; [facility] Zegerid 40-1100 MG OR CAPS 05/19/2010 Provider: Diagnosis: Last Documented On 0 11:15AM By CRYSTAL SALCEDO MA ; [facility] Zoloft 100 MG OR TABS 05/19/2010 Provider: Diagnosis: Last Documented On 0 11:12AM By CRYSTAL SALCEDO MA ; [facility] Medications Administered Includes: Administered Medications from this [...] Active Last Documented On 0 1:19PM ; [facility] Aspirin Allergy 12/08/2009 Active Last Documented On 0 1:18PM ; [facility] Insurance Includes: Active Insurance Policies Plan Name Member ID Group # Subscriber Relationship Effect unique Dates 1 - AETNA [id number] [id number] [employer] Self Clinical Notes Includes: Clinical Notes from this encounter No Clinical Notes Recorded
--- OUTSIDE RECORDS SUMMARY | 2024-08-01 00:02 | XMS_ITS | Continuity of Care Document ---
Author Organization [facility] Address [address] [place] [address]- Care Team Providers Care Escrow Assistant Name Role Phone Unavailable Primary Care Physician Unavailab le Encounter(s) 08/03/22 [facility] [address] [place] [id number]- Attending Physician: Anastacio Valenzuela Allergies, Adverse Reactions, Alerts Substance Reaction Severity Status ibuprofen Active aspirin Active Bee Stings Active iodine Active Assessment and Plan Extracted from: Title:Clinical Document Author:Jaswant Yee Faizan e:08/04/22 Pharmacy Progress Note Based upon the information available at the time of the review, and assuming the accuracy and completeness of such information, it is my professional judgment that at such time, the resident's medication regimen contained no new irregularities (as defined in MARCIAL Appendix PP ??483.60) Functional Status 08/03/22 Behaviors Exhibited Appropriate Impact of Behavior On Others Negative im pact on others not noted Impact of Behavior on Self Negative impa ct on self not noted Vital Signs Most recent to oldest [Reference Range]: 1 Blood Pressure [90-120/60-80 mmHg] 110/6 8mmHg (08/04/22 9:33 AM) Temperature Axillary [95.3-98.8 DegF] 96 DegF (08/04/22 9:33 AM) Temperature Tympanic [97.88-100.4 DegF] 97.9 DegF (08/03/22 7:02 PM) Peripheral Pulse Rate [60-100 bpm] 72 bp m (08/04/22 9:33 AM) Respiratory Rate [14-20 br/min] 20 br/mi n (08/04/22 9:33 AM) Height/Length Measured-inches 62 in (08/04/22 2:21 PM) Pharmacology Progress note * Jaswant Yee: PERFORM Event Display: Pharmacy Progress Note Authored Date: Pharmacy Progress Note Based upon the information available at the time of the review, and assuming the accuracy and completeness of such information, it is my professional judgment that at such time, the resident's medication regimen contained no new irregularities (as defined in MARCIAL Appendix PP ??483.60) Electronically Signed on 08/04/2022 08:28 AM LICENSING AND REGISTRATION DIRECTOR Jaswant Yee Patient Care team information Care Team Related Persons Name: RODNEY WHITTAKER Address: Home
--- OUTSIDE RECORDS SUMMARY | 2024-08-01 00:02 | XMS_ITS ---
Author Organization [facility] Address [address] [place] [address] Care Team Providers Care Retail And Promotions Coordinator Name Role Phone Martha Handley Primary Care Provider ALLERGIES Allergen (clinical drug ingredient) Drug/Non Drug Allergy documented on EMR Reaction Allergy Type Onset Date Status bees (uncoded) Unknown Allergy Activ e aspirin Aspirin Unknown Drug Allergy Active ibuprofen Ibuprofen Unknown Drug Allergy Active Iodine I 131 Tositumomab Unknown Drug Allergy Active codeine Codeine Unknown Drug Allergy Active Non-steroidal anti-inflammatory agent (FN) NSAIDs Unknown Drug Allergy Active Pollen Pollen Unknown Allergy Active REASON FOR VISIT rash on arm MEDICATIONS Medication SIG (Take, Route, Frequency, Duration) Notes Start Date End Date Status Levothyroxine Sodium 50 MCG 1 tablet in the morning on an empty stomach Orally Once a day 10/06/2023 Active MiraLax 17 GM/SCOOP 1 scoop mixed with 8 ounces of fluid Orally Once a day for 30 days 12/27/2023 12/21/2024 Active Miconazole Antifungal 2 % 1 application Externally daily 07/25/2023 Active Memantine HCl 10 MG 1 tablet Orally twice a day Active Melatonin 5 MG 1 tablet in the evening Orally Once a day Active Fortify 30 Billion Probiot 50+ - one capsule Orally daily 07/25/2023 Active Fluticasone Propionate 50 MCG/ACT 1 spray in each nostril Nasally twice a day for 30 days pt request to change to prn 08/31/2023 Active Donepezil HCl 10 MG 1 tablet at bedtime Orally Once a day Active Calcium Antacid 500 MG 1 tablet Orally twice a day Active Acetaminophen ER 650 MG 2 tablets Orally three times daily Active Spironolactone 100 MG 1 tablet Orally Once a day Active Senna 8.6 MG 1 tablet at bedtime Orally Once a day Active Saw Point Comfort 450 MG one capsule Orally daily Active EPINEPHrine 0.15 MG/0.3ML as directed Injection for 30 days Active Triamcinolone Acetonide 0.1 % 1 application Externally twice daily for 10 days 02/16/2024 Active QUEtiapine Fumarate 25 MG 1 tablet at bedtime Orally Once a day Active Pravastatin Sodium 20 MG 1 tablet Orally Once a day Active Omeprazole 40 MG 1 capsule 30 minutes before morning meal Orally Once a day Active SOCIAL HISTORY Tobacco Use: Social History Observation Description Date Details (start date - stop date) Never Smoker NA - NA Sex Assigned At : Social History Observation Description Sex Assigned At Unknown Household Question Answer Notes Marital status: Tobacco Use/Smoking Question Answer Notes Tobacco use: nonsmoker VITAL SIGNS Blood pressure systolic 129 mm Hg 02/16/20 24 Blood pressure diastolic 67 mm Hg 024 Heart Rate 72 /min 02/16/2024 Temperature 96.7 degrees Fahrenheit 02/16/20 24 Oximetry 96 % 02/16/2024 Encounters Encounter Location Date Provider Diagnosis [facility] [place] [address] [place] [address] 02/16/2024 Martha Handley Dermatitis L30.9 an d Allergic reaction to bee sting T63.441A ASSESSMENTS Encounter Date Diagnosis Assessment Notes Treatment Notes Treatment Clinical Notes Section Notes 02/16/2024 Dermatitis (ICD-10 - L30.9) Wash with gentle perfume free soap routinely Apply topical steroid prescription for 10 days or until resolved Avoid fragrances, nail polishes, hair dyes Call if not improved or resolved 02/16/2024 Allergic reaction to bee sting (ICD-10 - T63.441A) 02/16/2024 Other I personally spent a total of 35 minutes spent in [id number]-[id number] and miy-kwjn-rk-face evaluation of patient obtaining medical history, reviewing available medical records, reconciling medications, patient and nursing staff education, and coordination of care between patient/nursing staff/PCP/family/ POA. This time does not include time spent performing separately reportable services. All questions fielded and answered to satisfaction of patient and medical staff. Medical Decision Making: I have personally reviewed the patient's medical records to include active problem list, medication list, allergies, past medical/surgical history, family history, social history and community records were reviewed Counseling: FALL PREVENTION SLEEP HYGIENE ENCOURAGEMENT TO ADEQUATLY EAT AND DRINK Please contact myself or my team if you have any concerns or questions or need assistance PLAN OF TREATMENT Medication Medication Name Sig Start Date Stop Date Notes EPINEPHrine 0.15 MG/0.3ML as directed In jection for 30 days Triamcinolone Acetonide 0.1 % 1 applicat ion Externally twice daily for 10 days 02/16/2024 Treatment Notes Assessment Notes Dermatitis Wash with gentle perfume free soap routinely Apply topical steroid prescription for 10 days or until resolved Avoid fragrances, nail polishes, hair dyes Call if not improved or resolved Other I personally spent a total of 35 minutes spent in lebb-ye-dsah and gkb-qkbs-sg-face evaluation of patient obtaining medical history, reviewing available medical records, reconciling medications, patient and nursing staff education, and coordination of care between patient/nursing staff/PCP/family/POA. This time does not include time spent performing separately reportable services. All questions fielded and answered to satisfaction of patient and medical staff. Medical Decision Making: I have personally reviewed the patient's medical records to include active problem list, medication list, allergies, past medical/surgical history, family history, social history and community records were reviewed Counseling: FALL PREVENTION SLEEP HYGIENE ENCOURAGEMENT TO ADEQUATLY EAT AND DRINK Please contact myself or my team if you have any concerns or questions or need assistance Progress Notes * Kate UGALDEalDOB:1950 (73 yo F)Acc No.[id number]:02/16/2024 Progress Notes Patient:??Ilene UGALDE Provider:??Martha Emmanuelle :1950?Age:73 Y?Sex:Fe male Date:02/16/2024 Address:[facility] [address], [id number] Subjective: * Chief Complaints: * ?Rash on arm * HPI: ?General HPI:? Pt being seen at [facility] in her apt for an acute visit. Pt reported to her son last evening that she has a spot on my arm . States she noticed this a few days ago but seems to be getting larger and it itches. She denies any trauma, injury or any new products being used on her skin. States she has been using jock itch cream becausse this is all she has available. States it has eased the itching. Denies any other areas of concern. ?Daughter states her epi pen has expird and she needs a new one sent to pharmacy as well. * Medical History:?? * Surgical History:??No Surgic al History documented. * Hospitalization/Major Diagno stic Procedure:?? * Family History:??1 daughter( s) . .?? * Social History:?Tobacco Use:??Tobacco Use/Smoking??Tobacco use:??nonsmoker.?Household:??Household??Marital status:??.?? * Medications:??TakingAcetamin ophen ER 650 MG Tablet Extended Release 2 tablets Orally three times daily Calcium Antacid 500 MG Tablet Chewable 1 tablet Orally twice a day Donepezil HCl 10 MG Tablet 1 tablet at bedtime Orally Once a day EPINEPHrine 0.3 MG/0.3ML Solution Auto-injector as directed Injection Fluticasone Propionate 50 MCG/ACT Suspension 1 spray in each nostril Nasally twice a day As needed, Notes to Pharmacist: pt request to change to prnFortify 30 Billion Probiot 50+ - Capsule Delayed Release one capsule Orally daily Levothyroxine Sodium 50 MCG Tablet 1 tablet in the morning on an empty stomach Orally Once a day Melatonin 5 MG Tablet 1 tablet in the evening Orally Once a day Memantine HCl 10 MG Tablet 1 tablet Orally twice a day Miconazole Antifungal 2 % Cream 1 application Externally daily MiraLax 17 GM/SCOOP Powder 1 scoop mixed with 8 ounces of fluid Orally Once a day As needed, stop date 12/21/2024Omeprazole 40 MG Capsule Delayed Release 1 capsule 30 minutes before morning meal Orally Once a day Pravastatin Sodium 20 MG Tablet 1 tablet Orally Once a day QUEtiapine Fumarate 25 MG Tablet 1 tablet at bedtime Orally Once a day Saw Point Comfort 450 MG Capsule one capsule Orally daily Senna 8.6 MG Tablet 1 tablet at bedtime Orally Once a day Spironolactone 100 MG Tablet 1 tablet Orally Once a day Medication List reviewed and reconciled with the patientTaking Acetaminophen ER 650 MG Tablet Extended Release 2 tablets Orally three times daily Taking Calcium Antacid 500 MG Tablet Chewable 1 tablet Orally twice a day Taking Donepezil HCl 10 MG Tablet 1 tablet at bedtime Orally Once a day Taking EPINEPHrine 0.3 MG/0.3ML Solution Auto-injector as directed Injection Taking Fluticasone Propionate 50 MCG/ACT Suspension 1 spray in each nostril Nasally twice a day As needed, Notes to Pharmacist: pt request to change to prnTaking Fortify 30 Billion Probiot 50+ - Capsule Delayed Release one capsule Orally daily Taking Levothyroxine Sodium 50 MCG Tablet 1 tablet in the morning on an empty stomach Orally Once a day Taking Melatonin 5 MG Tablet 1 tablet in the evening Orally Once a day Taking Memantine HCl 10 MG Tablet 1 tablet Orally twice a day Taking Miconazole Antifungal 2 % Cream 1 application Externally daily Taking MiraLax 17 GM/SCOOP Powder 1 scoop mixed with 8 ounces of fluid Orally Once a day As needed, stop date 12/21/2024Taking Omeprazole 40 MG Capsule Delayed Release 1 capsule 30 minutes before morning meal Orally Once a day Taking Pravastatin Sodium 20 MG Tablet 1 tablet Orally Once a day Taking QUEtiapine Fumarate 25 MG Tablet 1 tablet at bedtime Orally Once a day Taking Saw Point Comfort 450 MG Capsule one capsule Orally daily Taking Senna 8.6 MG Tablet 1 tablet at bedtime Orally Once a day Taking Spironolactone 100 MG Tablet 1 tablet Orally Once a day Medication List reviewed and reconciled with the patient * Allergies:??AspirinPollenbee sIbuprofenIodine I 131 TositumomabNSAIDsCodeineno[Allergies Verified] Objective: * Vitals:??Sitting BP:129/67mm Hg, HR:72/min, Temp:96.7F, Oxygen sat %:96%. * Examination: ?General Examination: ?General appearance:??alert, pleasant, and in no acute distress.?Eyes:??pupils equal, round, reactive to light and accommodation.?Skin:??greater than 2 cm area, flaton the forehead, erythematous, on the right arm.?Lungs:??no respiratory distress with observation, no audible wheezing, no accessory muscle use.?Neurologic:??nonfocal, alert and oriented, normal upper and lower extremity motor strength and function, sensory exam intact.? Assessment: * Assessment: 1.??Dermatitis - L30.9 (Prim sean)??2.??Allergic reaction to bee sting - T63.441A?? Plan: * Treatment: 2.??Allergic reaction to bee sting?? Refill EPINEPHrine Solution Auto-injector, 0.15 MG/0.3ML, as directed, Injection, 30 days, 1, Refills 11.? 3.??Others?? Notes: I personally spent a total of 35 minutes spent in yopt-sb-nrze and bbp-qfau-ht-face evaluation of patient obtaining medical history, reviewing available medical records, reconciling medications, patient and nursing staff education, and coordination of care between patient/nursing staff/PCP/family/POA. This time does not include time spent performing separately reportable services. All questions fielded and answered to satisfaction of patient and medical staff. Medical Decision Making: I have personally reviewed the patient's medical records to include active problem list, medication list, allergies, past medical/surgical history, family history, social history and community records were reviewed Counseling: FALL PREVENTION SLEEP HYGIENE ENCOURAGEMENT TO ADEQUATLY EAT AND DRINK Please contact myself or my team if you have any concerns or questions or need assistance? * Procedure Codes:??86980 HOME V, EP EXPANDED * Billing Information: * Visit Code:?? * Procedure Codes:?? 05669 HOME V, EP EXPANDED. Care Plan Details* Vitals Oxygen sat % ((%))??96 Sitting BP ((mm Hg))??129/67 HR ((/min))??72 Temp ((F))??96.7 * Sign off status: Completed true * Provider:??Martha Handley Date:??2023 History and Physical Notes * HPI (History of Present Illness) Category Sub-Category Detail Notes Category Not es General HPI Pt being seen at [facility] in her apt for an acute visit. Pt reported to her son last evening that she has a spot on my arm . States she noticed this a few days ago but seems to be getting larger and it itches. She denies any trauma, injury or any new products being used on her skin. States she has been using jock itch cream becausse this is all she has available. States it has eased the itching. Denies any other areas of concern. Daughter states her epi pen has expird and she needs a new one sent to pharmacy as well. Examination Category Sub-Category Detail Notes Category Not es General Examination General appearance: alert, p leasant, and in no acute distress Eyes: pupils equal, round, reactive to light and accommodation Lungs: no respiratory distr ess with observation, no audible wheezing, no accessory muscle use Neurologic: nonfocal, alert and oriented, normal upper and lower extremity motor strength and function, sensory exam intact Skin: greater than 2 cm ar ea, flaton the forehead, erythematous, on the right arm
--- OUTSIDE RECORDS SUMMARY | 2024-08-01 00:02 | XMS_ITS | Clinical Summary ---
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 Active Last Documented On 1 9:18AM ; [facility] HYPERLIPIDEMIA NEC/NOS 06/01/2011 CLAUDIO DELUCA M.D. Active Last Documented On 1 9:23AM ; [facility] HYPOTHYROIDISM NOS 06/01/2011 CLAUDIO Mayers M.D. Active Last Documented On 1 9:20AM ; [facility] Osteopenia 05/19/2010 CELESTINO RICE LEANN-BC Act unique Last Documented On 10/31/2017 1:51PM ; [facility] Note: h/o of ankel fracture Arthritis 12/08/2009 SOLDREA L ROSARIO M.D. A ctive Last Documented On 0 1:16PM ; [facility] Irritable Bowel Syndrome 12/08/2009 CLAUDIO SOMERS M.D. Active Last Documented On 0 1:15PM ; [facility] Fibromyalgia 12/08/2009 CLAUDIO ROSARIO M.D. Active Last Documented On 0 1:15PM ; [facility] Plan of Treatment - OTHER - Last Documented On 06/07/2012 9:31AM ; [facility] Follow-up 1 YR W/ SUJIT - Last Documented On 06/07/2012 9:31AM ; [facility] ? SCREEN [facility]/*MAMMOGRAPHY: Mammography Instructions: Additional images/ultrasounds if indicated Please send to PCP - Last Documented On 06/07/2012 9:31AM ; [facility] ? Cervical Pap SmearIn office procedures/*Clia Waived Labs: Pap Smear Taken - Last Documented On 06/07/2012 9:31AM ; [facility] ? SCREEN MAL NEOP-RECTUMIn office procedures/*Clia Waived Labs: *FIT Test (Fecal Occult Test) - Last Documented On 06/07/2012 9:31AM ; [facility] - Clinical summary provided to patient - Last Documented On 06/07/2012 9:31AM ; [facility] Pending Tests Order Diagnosis Results Due Ordering P colt In office procedures - *[facility] Waived Labs *FIT Test (Fecal Occult Test) SCREEN MAL NEOP-RECTUM 06/21/12 CLAUDIO ROSARIO M.D. Last Documented On 2 9:27AM ; [facility] Radiology @ other - *MAMMOGRAPHY Mammography SCREEN MAMMOGRAM NEC 06/21/12 CLAUDIO SOMERS M.D. Last Documented On 4 2:18PM ; [facility] In office procedures - *[facility] Waived Labs Pap Smear Taken SCREEN MAL NEOP-CERVIX 06/21/12 CLAUDIO ROSARIO M.D. Last Documented On 2 9:27AM ; [facility] Instructions to patient Instructions for patient : B reast Self Exam discussed. Reviewed monthly self breast examination and technique Last Documented On 2 9:15AM ; [facility] Recommend diet and exercise at least 30 min three times per week Last Documented On 2 9:15AM ; [facility] Recommend preventative vacci nation including but not limited to influenza/flu vaccine, DTP, Rubella, Hepatitis B vaccination series Last Documented On 2 9:15AM ; [facility] Recommend annual pap smear e xamination or every three year if high risk hpv negative and 3 consecutive normal pap examination during preceding three years Last Documented On 2 9:15AM ; [facility] Recommend TSH, fasting gluco se, fasting lipid panel, CBC, BMP Last Documented On 9:15AM ; [facility] Recommend Calcium supplement ation and weight bearing exercise Last Documented On 9:15AM ; [facility] Recommended Bone Density Last Documented On 9:15AM ; [facility] Recommended Colonoscopy Pt r [...] responsibility regarding scheduling and follow up with preload supervisor Last Documented On 9:15AM ; [facility] Assessments Includes: Assessments from this encounter Findings - MAMMOGRAM SCREENING - Last Documented On 06/07/2012 9:31AM ; [facility] - NORMAL FEMALE EXAM - Last Documented On 06/07/2012 9:31AM ; [facility] - Asymptomatic postmenopausal status - Last Documented On 06/07/2012 9:31AM ; [facility] - Screening Malig. Neoplasm Rectum - Last Documented On 06/07/2012 9:31AM ; [facility] Instructions Includes: Instructions from this encounter Instructions to patient Instructions for patient : B reast Self Exam discussed. Reviewed monthly self breast examination and technique Last Documented On 2 9:15AM ; [facility] Recommend diet and exercise at least 30 min three times per week Last Documented On 2 9:15AM ; [facility] Recommend preventative vacci nation including but not limited to influenza/flu vaccine, DTP, Rubella, Hepatitis B vaccination series Last Documented On 2 9:15AM ; [facility] Recommend annual pap smear e xamination or every three year if high risk hpv negative and 3 consecutive normal pap examination during preceding three years Last Documented On 2 9:15AM ; [facility] Recommend TSH, fasting gluco se, fasting lipid panel, CBC, BMP Last Documented On 2 9:15AM ; [facility] Recommend Calcium supplement ation and weight bearing exercise Last Documented On 2 9:15AM ; [facility] Recommended Bone Density Last Documented On 2 9:15AM ; [facility] Recommended Colonoscopy Pt r [...] responsibility regarding scheduling and follow up with preload supervisor Last Documented On 2 9:15AM ; [facility] Medical Equipment - Implanted Devices Includes: Current Devices No Medical Equipment Recorded Medications Includes: Medications discussed during this encounter and other current Medications Current Medications (continue as prescribed) Simvastatin 20MG Oral Tablet 10/31/2017 Provider: Diagnosis: Last Documented On 10/31/2017 1:41PM By DENNISE ZELAYA CMA ; [facility] Hydrocodone-Acetaminophen 10-325MG Oral Tablet 018 Provider: Diagnosis: Last Documented On 10/31/2017 1:41PM By DENNISE ZELAYA CMA ; [facility] DULoxetine HCl 20MG Oral Capsule Delayed Release Parti cles 10/31/2017 Provider: Diagnosis: Last Documented On 10/31/2017 1:40PM By DENNISE ZELAYA CMA ; [facility] Gabapentin 800MG Oral Tablet 10/31/2017 Provider: Diagnosis: Last Documented On 10/31/2017 1:41PM By DENNISE ZELAYA CMA ; [facility] TraZODone HCl 50MG Oral Tablet 10/31/2017 Provider: Diagnosis: Last Documented On 10/31/2017 1:41PM By DENNISE ZELAYA CMA ; [facility] Levothyroxine Sodium 100MCG Oral Tablet 10/31/2017 P rovider: Diagnosis: Last Documented On 10/31/2017 1:38PM By DENNISE ZELAYA CMA ; [facility] Sertraline HCl 100MG Oral Tablet 10/31/2017 Provider : Diagnosis: Last Documented On 10/31/2017 1:39PM By DENNISE ZELAYA CMA ; [facility] Spironolactone 100MG Oral Tablet 10/31/2017 Provider : Diagnosis: Last Documented On 10/31/2017 1:39PM By DENNISE ZELAYA CMA ; [facility] Benazepril-hydroCHLOROthiazide 20-25 MG TABS 2 Provider: TOM AGUILERA MD Diagnosis: Last Documented On 2 9:10AM By JACQUE ASHER MA ; [facility] Gabapentin 800 MG OR TABS 05/17/2012 Provider: RAHEL AGUILERA MD Diagnosis: Last Documented On 2 9:10AM By JACQUE ASHER MA ; [facility] Levothroid 25 MCG OR TABS 06/01/2011 Provider: Diagnosis: Last Documented On 1 9:20AM By DR. CLAUDIO ROSARIO ; [facility] Zetia 10 MG OR TABS 06/01/2011 Provider: Diagnosis: Last Documented On 1 9:22AM By DR. CLAUDIO ROSARIO ; [facility] PA Vitamin D-3 50 MCG (1999) OR CAPS 06/01/2011 Marin gregory: Diagnosis: Last Documented On 1 9:23AM By DR. CLAUDIO ROSARIO ; [facility] Zegerid 40-1100 MG OR CAPS 05/19/2010 Provider: Diagnosis: Last Documented On 0 11:15AM By CRYSATL SALCEDO MA ; [facility] Zoloft 100 MG OR TABS 05/19/2010 Provider: Diagnosis: Last Documented On 0 11:12AM By CRYSTAL SALCEDO MA ; [facility] Past Medications on file Terazol 7 0.4% VA CREA 10/04/2013 - 11/03/2013 Provider: CELESTINO HESTER Diagnosis: CANDIDAL VULVOVA GINITIS one applicator full pv q hs x 7 nocs Last Documented On 4 10:21AM By CELESTINO HESTER ; [facility] Nystatin 624839 UNIT/GM EX CREA 10/04/2013 - 11/03/2013 Provider: [facility] Diagnosis: CANDIDAL VULVOVA GINITIS apply to vulva bid prn Last Documented On 4 10:22AM By [facility] ; [facility] Nystatin-Triamcinolone 128847-0.1 UNIT/GM-% EX CREA 06/01/2011 - 08/30/2011 Provider: CLAUDIO ROSARIO M.D. Diagnosis: CUTANEOUS CANDIDIASIS apply ample amount to area BID Last Documented On 1 9:34AM By DR. CLAUDIO ROSARIO ; [facility] Medications Administered Includes: Administered Medications from this encounter No Administered Medications Recorded Vital Signs Includes: Vital Signs from this encounter Vital Name 06/07/2012 09:00A Blood Pressure Sitting (mmHg) 130/76 Height (in) 65 Weight (lb) 211 Body Mass Index (kg/m2) 35.1 Body Surface Area (m2) 2.0 Last Documented: On 06/07/2012 9:06AM ; [facility] Results Includes: Results discussed during this encounter No Results Recorded For Specified Dates History of Present Illness Includes: History of Present Illness from this encounter KARENA POP is a 62 year old female. - No complaints. Social History Description Last Updated Marital history 10/31/2017 Last Documented On 2 9:02AM ; [facility] Non-smoker 10/31/2017 Last Documented On 2 9:02AM ; [facility] Not using alcohol 10/31/2017 Last Documented On 2 9:02AM ; [facility] Not using drugs 10/31/2017 Last Documented On 2 9:02AM ; [facility] In monogamous relationship 10/04/2013 Last Documented On 2 9:02AM ; [facility] Not sexually active 06/07/2012 Last Documented On 2 9:31AM ; [facility] Smoking status : Never smoked 06/07/2012 Last Documented On 2 9:31AM ; [facility] Sexually active with 1 partners in the l ast year 06/01/2011 Last Documented On 2 9:02AM ; [facility] Age of 1st intercourse was was 17 2009 Last Documented On 2 9:02AM ; [facility] Procedures and Surgical History Includes: Procedures from this encounter Procedures Code Diagnosis Performing Provider Service L ocation Service Date a fecal occult blood test was negative 03575 Last Documented On 2 9:15AM ; [facility] Surgical History Last Updated No Breast Biopsy 06/01/2011 Last Documented On 2 9:02AM ; [facility] No Ectopic surgery 06/01/2011 Last Documented On 2 9:02AM ; [facility] No Endometrial Ablation 06/01/2011 Last Documented On 2 9:02AM ; [facility] No history of cholecystectomy 06/01/2011 Last Documented On 2 9:02AM ; [facility] No history of Loop electrode excision of cervix (LEEP) 06/01/2011 Last Documented On 2 9:02AM ; [facility] No history of tubal ligation 06/01/2011 Last Documented On 2 9:02AM ; [facility] No history of vaginal hysterectomy 06/01 Last Documented On 2 9:02AM ; [facility] No Laparoscopic Hysterectomy 06/01/2011 Last Documented On 2 9:02AM ; [facility] No Ovarian Cystectomy 06/01/2011 Last Documented On 2 9:02AM ; [facility] No Tonsillectomy 06/01/2011 Last Documented On 2 9:02AM ; [facility] Bilateral salpingo-oophorectomy 05/19/20 10 Last Documented On 2 9:02AM ; [facility] Dilation + Curettage 05/19/2010 Last Documented On 2 9:02AM ; [facility] History of appendectomy 05/19/2010 Last Documented On 2 9:02AM ; [facility] History of hysterectomy 05/19/2010 Last Documented On 2 9:02AM ; [facility] History of total abdominal hysterectomy 05/19/2010 Last Documented On 2 9:02AM ; [facility] Medical History Includes: Medical History addressed during this encounter Description Last Updated Vaginal delivery 10/31/2017 Last Documented On 2 9:02AM ; [facility] Arthritis 06/07/2012 Last Documented On 2 9:31AM ; [facility] A colonoscopy was performed 2008 012 Last Documented On 2 9:31AM ; [facility] Last mammogram date: 200906/01/2011 Last Documented On 2 9:02AM ; [facility] Last pap smear date 200906/01/2011 Last Documented On 2 9:02AM ; [facility] Aborta 2 05/19/2010 Last Documented On 2 9:02AM ; [facility] 4 05/19/2010 Last Documented On 2 9:02AM ; [facility] History of breast fibrocystic disease Last Documented On 2 9:02AM ; [facility] History of depression 05/19/2010 Last Documented On 2 9:02AM ; [facility] History of hyperlipidemia 05/19/2010 Last Documented On 2 9:02AM ; [facility] History of hyperthyroidism 05/19/2010 Last Documented On 2 9:02AM ; [facility] History of irritable bowel syndrome 04/23 Last Documented On 2 9:02AM ; [facility] History of thyroid disorder 05/19/2010 Last Documented On 2 9:02AM ; [facility] LMP: 197705/19/2010 Last Documented On 2 9:02AM ; [facility] Para 2 05/19/2010 Last Documented On 2 9:02AM ; [facility] Patient recently had a dexa scan 010 Last Documented On 2 9:02AM ; [facility] 1977- hyst/ RSO ~1993- lap exam LSO ~IBS ~rotator cuff 12/08/2009 Last Documented On 2 9:02AM ; [facility] 2 living children 12/08/2009 Last Documented On 2 9:02AM ; [facility] A mammogram was performed 05/28/082009 Last Documented On 2 9:02AM ; [facility] Status post hysterectomy 12/08/2009 Last Documented On 2 9:02AM ; [facility] Family History Includes: Family History addressed during this encounter Description Last Updated Family history of malignant female breas t neoplasm 10/31/2017 Last Documented On 2 9:02AM ; [facility] Family history of diabetes mellitus 09/22 Last Documented On 2 9:02AM ; [facility] No family history of hypercholesterolemi a 10/04/2013 Last Documented On 2 9:02AM ; [facility] No heart disease 10/04/2013 Last Documented On 2 9:02AM ; [facility] No family history of hypertension 2010 Last Documented On 2 9:02AM ; [facility] No family history of malignant neoplasm of the large intestine 06/01/2011 Last Documented On 2 9:02AM ; [facility] No family history of malignant neoplasm of the ovary 06/01/2011 Last Documented On 2 9:02AM ; [facility] No family history of uterine cancer 05/22 Last Documented On 2 9:02AM ; [facility] Spouse name: [place] 05/19/2010 Last Documented On 2 9:02AM ; [facility] Family history of Cancer breast(sister, niece), prostate(dad) 12/08/2009 Last Documented On 2 9:02AM ; [facility] Family history of Diabetes (M, sister) 0 12/08/2009 Last Documented On 2 9:02AM ; [facility] Family history of thyroid disease (M) Last Documented On 2 9:02AM ; [facility] Family medical history of high blood pre ssure (sister) 12/08/2009 Last Documented On 2 9:02AM ; [facility] Review of Systems Includes: Review of Systems from this encounter Systemic: Not tiring easily. No fever, no chills, and no post coital bleeding. No night sweats. Head: No headache. Neck: No neck pain and no swollen glands in the neck. Cardiovascular: No chest pain or discomfort, no palpitations, and no varicosities. Pulmonary: No dyspnea, no cough, and no wheezing. Gastrointestinal: No heartburn and no indigestion. No nausea, no vomiting, no abdominal pain, no diarrhea, and no constipation. Genitourinary: No change in urinary frequency and no incomplete emptying of bladder. Urinary loss of control. No dysuria, no pain during intercourse, no vaginal dryness, and no menorrhagia. No dysmenorrhea. No nonmenstrual bleeding. Endocrine: No polydipsia, no temperature intolerance, no hot flashes, libido has not changed, and no loss of hair from the head. Hematologic: No blood clotting problems. Musculoskeletal: No back pain and no localized joint pain. Psychological: No depression and a desire to continue living. Skin: No pruritus and no rash. No boils. Allergic and Immunologic: No hay fever. Mental Status Includes: Mental Status from this encounter Description Oriented to time, place, and person A desire to continue living Functional Status Includes: Functional Status from this encounter No Functional Status Recorded Physical Exam Includes: Physical Exam from this encounter Allergies Includes: Active Allergies Substance Type Reaction Onset Date Resolved Date Statu s BEES Allergy 12/08/2009 Active Last Documented On 0 1:19PM ; [facility] Aspirin Allergy 12/08/2009 Active Last Documented On 0 1:18PM ; [facility] Encounters Encounter Provider Location Date Check-In Time Check-Out Time Diagnosis 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 Neoplasm Rectum,Asymptomat ic Postmenopausal Status Insurance Includes: Active Insurance Policies Plan Name Member ID Group # Subscriber Relationship Effect unique Dates 1 - AENA [id number] [employer] Self Clinical Notes Includes: Clinical Notes from this encounter No Clinical Notes Recorded
--- OUTSIDE RECORDS SUMMARY | 2024-08-01 00:02 | XMS_ITS | Clinical Summary ---
Author Organization [facility] Address [address] [place] [address] Phone Care Team Providers Care Silverware Washer Name Role Phone UMM BECKETT MD Primary Care Provider [phone] Reason for Visit and Chief Complaint Pt presents for problem in addition to annual exam, gynecologic annual exam - The Chief Complaint is: annual-Pt thinks she has a yeast infection under her breast and in her vagina. 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 Active Last Documented On 06/07/2012 9:31AM ; [facility] Note: DOES NOT DESIRE INTERVENTION ESOPHAGEAL REFLUX 06/01/2011 CLAUDIO ROSARIO M.D. Active Last Documented On 1 9:18AM ; [facility] HYPERLIPIDEMIA NEC/NOS 06/01/2011 CLAUDIO DELUCA M.D. Active Last Documented On 1 9:23AM ; [facility] HYPOTHYROIDISM NOS 06/01/2011 CLAUDIO Mayers M.D. Active Last Documented On 1 9:20AM ; [facility] Osteopenia 05/19/2010 CELESTINO RICE LEANN-BC Act unique Last Documented On 10/31/2017 1:51PM ; [facility] Note: h/o of ankel fracture Arthritis 12/08/2009 CLAUDIO ROSARIO M.D. A ctive Last Documented On 0 1:16PM ; [facility] Irritable Bowel Syndrome 12/08/2009 CLAUDIO SOMERS M.D. Active Last Documented On 0 1:15PM ; [facility] Fibromyalgia 12/08/2009 CLAUDIO ROSARIO M.D. Active Last Documented On 0 1:15PM ; [facility] Plan of Treatment - VULVOVAGINITIS THELMA ALBICANS - Last Documented On 10/04/2013 10:23AM ; [facility] Lab: Hemoglobin A1C Terazol 7 0.4 % CREA, as directed, 30 days, 0 refills, one applicator full pv q hs x 7 nocs Nystatin [id number] UNIT/GM CREA, Apply twice a day, 30 days, 0 refills, apply to vulva bid prn - Last Documented On 10/04/2013 10:23AM ; [facility] ? [facility]) - Last Documented On 10/04/2013 10:23AM ; [facility] ? OTHERFollow-up 1 year/prn - blood work today! - Last Documented On 10/04/2013 10:23AM ; [facility] ? [facility]/*MAMMOGRAPHY: Mammography with u/s if indicated Instructions: Additional images/ultrasounds if indicated Please send to PCP - Last Documented On 10/04/2013 10:23AM ; [facility] ? SCREEN MAL NEOP-RECTUMIn office procedures/*Clia Waived Labs: *FIT Test (Fecal Occult Test) - Last Documented On 10/04/2013 10:23AM ; [facility] - Clinical summary provided to patient - Last Documented On 10/04/2013 10:23AM ; [facility] - Follow-up visit 1 year or as needed - Last Documented On 10/04/2013 10:23AM ; [facility] Pending Tests Order Diagnosis Results Due Ordering P rovider Lab Hemoglobin A1C 10/04/13 CELESTINO DATLON WHNP-BC Last Documented On 4 12:01PM ; [facility] Lab Glucose, Plasma 10/04/13 CELESTINO NAJERA WHNP-BC Last Documented On 4 11:59AM ; [facility] Lab GLUCOSE 10/04/13 CELESTINO RICE WHNP-BC Last Documented On 4 11:59AM ; [facility] Radiology @ other DEXA (to be scheduled) Bone & Cartilage Dis NOS 10/18/13 CELESTINO RICE WHNP-BC Last Documented On 4 2:28PM ; [facility] In office procedures - *Clia Waived Labs *FIT Test (Fecal Occult Test) SCREEN MAL NEOP-RECTUM 10/18/13 CELESTINO RICE WHNP-BC Last Documented On 4 10:05AM ; [facility] Radiology @ other - *MAMMOGRAPHY Mammography with u/s if indicated SCREEN MAMMOGRAM NEC 10/18/13 CELESTINO RICE WHNP-BC Last Documented On 4 2:19PM ; [facility] Lab BV/VAGINITIS PANEL DNA PROBE 4 CELESTINO RICE WHNP-BC Last Documented On 4 4:21PM ; [facility] Instructions to patient Instructions for patient : B reast Self Exam discussed Last Documented On 4 9:46AM ; [facility] Instructions for patient : K eep the area around the vulva dry. Allow the area to have exposure to air. Avoid irritants such as fabric softeners and perfumed soaps.~ Last Documented On 4 10:23AM ; [facility] Lose weight Last Documented On 4 9:47AM ; [facility] Advised d/c scented bath pro ducts Last Documented On 4 10:23AM ; [facility] Colonoscopy Handout given to patient Last Documented On 4 9:47AM ; [facility] Education and Decision Aids were provided during visit for: Patient Education: Daily breanne cium and vitamin D Last Documented On 4 9:46AM ; [facility] Patient Education: weight be aring exercise Last Documented On 4 9:46AM ; [facility] Candidiasis Vulvovaginitis I nformation Sheet Given Last Documented On 4 10:23AM ; [facility] Assessments Includes: Assessments from this encounter Findings - NORMAL FEMALE EXAM - Last Documented On 10/04/2013 10:23AM ; [facility] - Thelma albicans vulvovaginitis - Last Documented On 10/04/2013 10:23AM ; [facility] - Screening Malig. Neoplasm Rectum - Last Documented On 10/04/2013 10:23AM ; [facility] Instructions Includes: Instructions from this encounter Instructions to patient Instructions for patient : B reast Self Exam discussed Last Documented On 4 9:46AM ; [facility] Instructions for patient : K eep the area around the vulva dry. Allow the area to have exposure to air. Avoid irritants such as fabric softeners and perfumed soaps.~ Last Documented On 4 10:23AM ; [facility] Lose weight Last Documented On 4 9:47AM ; [facility] Advised d/c scented bath pro ducts Last Documented On 4 10:23AM ; [facility] Colonoscopy Handout given to patient Last Documented On 4 9:47AM ; [facility] Education and Decision Aids were provided during visit for: Patient Education: Daily breanne cium and vitamin D Last Documented On 4 9:46AM ; [facility] Patient Education: weight be aring exercise Last Documented On 4 9:46AM ; [facility] Candidiasis Vulvovaginitis I nformation Sheet Given Last Documented On 4 10:23AM ; [facility] Medical Equipment - Implanted Devices Includes: Current Devices No Medical Equipment Recorded Medications Includes: Medications discussed during this encounter and other current Medications Discontinued / Stopped on this date on 06/01/2011 Neurontin 800 MG OR TABS Provider: Diagnosis: Last Documented On 4 10:02AM By BUTCH KWOK ; [facility] chlordiazePOXIDE HCl 25 MG OR CAPS Provid er: Diagnosis: Last Documented On 4 10:03AM By BUTCH KWOK ; [facility] New / Renewed during this visit CELESTINO KOCH- on 10/04/2013 Terazol 7 0.4% VA CREA Provider: CELESTINO HESTER 30 day supply: 1 tube, 0 refills Diagnosis: CANDIDAL VULVOVAGINITIS one applicator full pv q hs x 7 nocs Pharmacy: FRANK SHEPHERD ([employer] [facility]) [address] Last Documented On 4 10:21AM By CELESTINO HESTER ; [facility] Nystatin [id number] UNIT/GM EX CREA Provider: CELESTINO Morley 30 day supply: 30 gram, 0 refills Diagnosis: CANDIDAL VULVOVAGINITIS apply to vulva bid prn Pharmacy: [facility] [address] [address] - Last Documented On 4 10:22AM By CELESTINO HESTER ; [facility] Current Medications (continue as prescribed) Simvastatin 20MG Oral Tablet 10/31/2017 Provider: Diagnosis: Last Documented On 10/31/2017 1:41PM By DENNISE ZELAYA CMA ; [facility] Hydrocodone-Acetaminophen 10-325MG Oral Tablet 018 Provider: Diagnosis: Last Documented On 10/31/2017 1:41PM By DENNISE ZELAYA CMA ; [facility] DULoxetine HCl 20MG Oral Capsule Delayed Release Parti cles 10/31/2017 Provider: Diagnosis: Last Documented On 10/31/2017 1:40PM By DENNISE ZELAYA CMA ; [facility] Gabapentin 800MG Oral Tablet 10/31/2017 Provider: Diagnosis: Last Documented On 10/31/2017 1:41PM By DENNISE ZELAYA CMA ; [facility] TraZODone HCl 50MG Oral Tablet 10/31/2017 Provider: Diagnosis: Last Documented On 10/31/2017 1:41PM By DENNISE ZELAYA CMA ; [facility] Levothyroxine Sodium 100MCG Oral Tablet 10/31/2017 Marin gilder: Diagnosis: Last Documented On 10/31/2017 1:38PM By DENNISE ZELAYA CMA ; [facility] Sertraline HCl 100MG Oral Tablet 10/31/2017 Provider : Diagnosis: Last Documented On 10/31/2017 1:39PM By DENNISE ZELAYA CMA ; [facility] Spironolactone 100MG Oral Tablet 10/31/2017 Provider : Diagnosis: Last Documented On 10/31/2017 1:39PM By DENNISE ZELAYA CMA ; [facility] Benazepril-hydroCHLOROthiazide 20-25 MG TABS 2 Provider: TOM AGUILERA MD Diagnosis: Last Documented On 2 9:10AM By JACQUE ASHER MA ; [facility] Gabapentin 800 MG OR TABS 05/17/2012 Provider: RAHEL AGUILERA MD Diagnosis: Last Documented On 2 9:10AM By JACQUE ASHER MA ; [facility] Levothroid 25 MCG OR TABS 06/01/2011 Provider: Diagnosis: Last Documented On 1 9:20AM By DR. CLAUDIO ROSARIO ; [facility] Zetia 10 MG OR TABS 06/01/2011 Provider: Diagnosis: Last Documented On 1 9:22AM By DR. CLAUDIO ROSARIO ; [facility] PA Vitamin D-3 50 MCG (1999) OR CAPS 06/01/2011 P whitneyvider: Diagnosis: Last Documented On 1 9:23AM By DR. CLAUDIO ROSARIO ; [facility] Zegerid 40-1100 MG OR CAPS 05/19/2010 Provider: Diagnosis: Last Documented On 0 11:15AM By CRYSTAL SALCEDO MA ; [facility] Zoloft 100 MG OR TABS 05/19/2010 Provider: Diagnosis: Last Documented On 0 11:12AM By CRYSTAL SALCEDO MA ; [facility] Past Medications on file Nystatin-Triamcinolone 566445-3.1 UNIT/GM-% EX CREA 06/01/2011 - 08/30/2011 Provider: CLAUDIO ROSARIO M.D. Diagnosis: CUTANEOUS CANDIDIASIS apply ample amount to area BID Last Documented On 1 9:34AM By DR. CLAUDIO ROSARIO ; [facility] Medications Administered Includes: Administered Medications from this encounter No Administered Medications Recorded Vital Signs Includes: Vital Signs from this encounter Vital Name 10/04/2013 09:53A Blood Pressure Sitting L 120/70 BP Cuff Size Large Height (in) 64.5 Weight (lb) 218 Body Mass Index (kg/m2) 36.8 Body Surface Area (m2) 2.0 Last Documented: On 10/04/2013 9:56AM ; [facility] Results Includes: Results discussed during this encounter No Results Recorded For Specified Dates History of Present Illness Includes: History of Present Illness from this encounter KARENA POP is a 63 year old female. - Medication list reviewed. Social History Description Last Updated Marital history 10/31/2017 Last Documented On 4 9:51AM ; [facility] Non-smoker 10/31/2017 Last Documented On 4 9:51AM ; [facility] Social history unchanged 10/04/2013 Last Documented On 4 10:23AM ; [facility] In monogamous relationship 10/04/2013 Last Documented On 4 10:23AM ; [facility] Not sexually active 10/04/2013 Last Documented On 4 10:23AM ; [facility] Not using alcohol 10/04/2013 Last Documented On 4 10:23AM ; [facility] Not using drugs 10/04/2013 Last Documented On 4 10:23AM ; [facility] Smoking status 10/04/2013 Last Documented On 4 10:23AM ; [facility] Sexually active with 1 partners in the l ast year 06/01/2011 Last Documented On 4 9:51AM ; [facility] Age of 1st intercourse was was 17 2009 Last Documented On 4 9:51AM ; [facility] Procedures and Surgical History Includes: Procedures from this encounter Procedures Code Diagnosis Performing Provider Service L ocation Service Date low fat diet Last Documented On 4 9:47AM ; [facility] a fecal occult blood test was negative [id number] Last Documented On 4 9:46AM ; [facility] a BD Affirm was performed Last Documented On 4 10:22AM ; [facility] Surgical History Last Updated Surgical / procedural history both rotor cuffs ~cateract 10/04/2013 Last Documented On 4 10:23AM ; [facility] Bilateral salpingo-oophorectomy 05/19/20 10 Last Documented On 4 9:51AM ; [facility] Dilation + Curettage 05/19/2010 Last Documented On 4 9:51AM ; [facility] History of appendectomy 05/19/2010 Last Documented On 4 9:51AM ; [facility] History of hysterectomy 05/19/2010 Last Documented On 4 9:51AM ; [facility] History of total abdominal hysterectomy 05/19/2010 Last Documented On 4 9:51AM ; [facility] Medical History Includes: Medical History addressed during this encounter Description Last Updated Vaginal delivery 10/31/2017 Last Documented On 4 9:51AM ; [facility] Recent change in medical history PCP Dr Debbie King 10/04/2013 Last Documented On 4 10:23AM ; [facility] History of hypothyroidism 10/04/2013 Last Documented On 4 10:23AM ; [facility] A colonoscopy was performed 2009 makayla ricketts at [facility] 10 years 10/04/2013 Last Documented On 4 10:23AM ; [facility] Result: normal 10/04/2013 Last Documented On 4 10:23AM ; [facility] Patient recently had a dexa scan 011 osteopenia 10/04/2013 Last Documented On 4 10:23AM ; [facility] Arthritis 06/07/2012 Last Documented On 4 9:51AM ; [facility] A colonoscopy was performed 2008 012 Last Documented On 4 9:51AM ; [facility] Last mammogram date: 200906/01/2011 Last Documented On 4 9:51AM ; [facility] Last pap smear date 200906/01/2011 Last Documented On 4 9:51AM ; [facility] Aborta 2 05/19/2010 Last Documented On 4 9:51AM ; [facility] 4 05/19/2010 Last Documented On 4 9:51AM ; [facility] History of breast fibrocystic disease Last Documented On 4 9:51AM ; [facility] History of depression 05/19/2010 Last Documented On 4 9:51AM ; [facility] History of hyperlipidemia 05/19/2010 Last Documented On 4 9:51AM ; [facility] History of irritable bowel syndrome 04/23 Last Documented On 4 9:51AM ; [facility] History of thyroid disorder 05/19/2010 Last Documented On 4 9:51AM ; [facility] LMP: 1978 05/19/2010 Last Documented On 4 9:51AM ; [facility] Para 2 05/19/2010 Last Documented On 4 9:51AM ; [facility] 1977- hyst/ RSO ~1994- lap exam LSO ~IBS ~rotator cuff 12/08/2009 Last Documented On 4 9:51AM ; [facility] 2 living children 12/08/2009 Last Documented On 4 9:51AM ; [facility] A mammogram was performed 05/28/082009 Last Documented On 4 9:51AM ; [facility] Status post hysterectomy 12/08/2009 Last Documented On 4 9:51AM ; [facility] Family History Includes: Family History addressed during this encounter Description Last Updated Family history unchanged 10/04/2013 Last Documented On 4 10:23AM ; [facility] Family history of diabetes mellitus both sides 10/04/2013 Last Documented On 4 10:23AM ; [facility] Family history of heart disease sister 0 10/04/2013 Last Documented On 4 10:23AM ; [facility] Family history of hypercholesterolemia s ister 10/04/2013 Last Documented On 4 10:23AM ; [facility] Family history of malignant female breast neoplasm sister daughter ~1st cousin and sister both had irregular cells 10/04/2013 Last Documented On 4 10:23AM ; [facility] Spouse name: MON[place]NA 05/19/2010 Last Documented On 4 9:51AM ; [facility] Family history of Cancer breast(sister, niece), prostate(dad) 12/08/2009 Last Documented On 4 9:51AM ; [facility] Family history of Diabetes (M, sister) 0 12/08/2009 Last Documented On 4 9:51AM ; [facility] Family history of thyroid disease (M) Last Documented On 4 9:51AM ; [facility] Family medical history of high blood pre ssure (sister) 12/08/2009 Last Documented On 4 9:51AM ; [facility] Review of Systems Includes: Review of Systems from this encounter Genitourinary: Vaginal itching or burning and white vaginal discharge. 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 Neoplasm Rectum,Normal Female Exam,Vulvovag initis Thelma Albicans Insurance Includes: Active Insurance Policies Plan Name Member ID Group # Subscriber Relationship Effect unique Dates 1 - AET[employer] [id number] [employer] Self Clinical Notes Includes: Clinical Notes from this encounter No Clinical Notes Recorded
--- OUTSIDE RECORDS SUMMARY | 2024-08-01 00:03 | XMS_ITS | Patient Health Record ---
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 Campbell ope, pt has appt 08/31/23 Diagnosis 1 Mixed incontinence ( N39.46) Referral Organization [facility] Referring Provider First Name Martha Referring Provider Last Name Emmanuelle Referring Provider Speciality Nurse Prac titioner Referred Organization [facility] Referred Address [address] [place] [place], [place],[address], Referred Provider Specialty Urology Referral Priority Routine MEDICATIONS Medication SIG (Take, Route, Frequency, Duration) Notes Start Date End Date Status Calcium Antacid 500 MG 1 tablet Orally twice a day Active Pravastatin Sodium 20 MG 1 tablet Orally Once a day Active Acetaminophen ER 650 MG 2 tablets Orally three times daily Active Omeprazole 40 MG 1 capsule 30 minutes before morning meal Orally Once a day Active EPINEPHrine 0.15 MG/0.3ML as directed Injection for 30 days Active MiraLax 17 GM/SCOOP 1 scoop mixed with 8 ounces of fluid Orally Once a day for 30 days 12/27/2023 12/21/2024 Active Triamcinolone Acetonide 0.1 % 1 application Externally twice daily for 10 days 02/16/2024 Active Miconazole Antifungal 2 % 1 application Externally daily 07/25/2023 Active Memantine HCl 10 MG 1 tablet Orally twice a day Active Melatonin 5 MG 1 tablet in the evening Orally Once a day Active Levothyroxine Sodium 50 MCG 1 tablet in the morning on an empty stomach Orally Once a day 10/06/2023 Active Fortify 30 Billion Probiot 50+ - one capsule Orally daily 07/25/2023 Active Spironolactone 100 MG 1 tablet Orally Once a day Active Fluticasone Propionate 50 MCG/ACT 1 spray in each nostril Nasally twice a day for 30 days pt request to change to prn 08/31/2023 Active Senna 8.6 MG 1 tablet at bedtime Orally Once a day Active Saw Haviland 450 MG one capsule Orally daily Active Donepezil HCl 10 MG 1 tablet at bedtime Orally Once a day Active QUEtiapine Fumarate 25 MG 1 tablet at bedtime Orally Once a day Active SOCIAL HISTORY Tobacco Use: Social History Observation Description Date Details (start date - stop date) Never Smoker NA - NA Sex Assigned At : Social History Observation Description Sex Assigned At Unknown Household Question Answer Notes Marital status: Tobacco Use/Smoking Question Answer Notes Tobacco use: nonsmoker PROBLEMS Problem Type ICD Code Onset Dates Problem Status W/U Status Risk SNOMED Code Notes Problem Other chronic pain (G89.29) Active confirmed Chronic pain (51271638) Problem Constipation, unspecified (K59.00) Active confirmed Constipation (53187640) Problem Mixed incontinence (N39.46) Active confirmed 95489640 Problem Essential hypertension (I10) Active confirmed 09665811 Problem Anxiety (F41.9) Active confirmed Anxiet y (21760791) Problem Difficulty staying asleep (G47.00) Active confirmed Difficulty staying asleep (99377181) Problem Hypertensive heart disease, unspecified whether heart failure present (I11.9) Active confirmed Hypertensive heart disease without congestive heart failure (95113974) Problem Mild dementia with anxiety, unspecified dementia type (F03.A4) Active confirmed 28614231 Problem Adult hypothyroidism (E03.9) Active confirmed Hypothyroidism (77756780) Problem Postmenopausal osteoporosis (M81.0) Active confirmed 482553010 Problem Rhinitis, chronic (J31.0) Active confirmed 09216966 VITAL SIGNS Heart Rate 72 /min 02/16/2024 Temperature 96.7 degrees Fahrenheit 02/16/2024 Respiratory Rate 20 /min 11/17/2023 Oximetry 96 % 02/16/2024 Blood pressure diastolic 67 mm Hg 02/16/2024 Weight-kg 58.51 kg 11/17/2023 Blood pressure systolic 129 mm Hg 02/16/2024 Weight 129 lbs 11/17/2023 Encounters Encounter Location Date Provider Diagnosis [facility] [address] [place] [address] 09/19/2023 Martha Emmanuelle [facility] [address] [place] [address] 09/22/2023 Martha [facility] [place] [facility] [address] [place] [address] 10/06/2023 Martha Handley Essential hypertensi on I10 ; Postmenopausal osteoporosis M81.0 and Mild dementia with anxiety, unspecified dementia type F03.A4 [facility] [address] [place] [address] 11/17/2023 Martha Handley Mild dementia with anxiety, unspecified dementia type F03.A4 ; Renal lesion N28.9 and Essential hypertension I10 [facility] [address] [address] 02/16/2024 Marthamarty Handley Dermatitis L30.9 and Allergic reaction to bee sting T63.441A [facility] [address] [place] [address] 08/12/2023 Martha Handley Mixed incontinence N39.46 [facility] [address] [place] [address] 09/09/2023 Martha [facility] [place] [facility] [address] [place] [address] 09/16/2023 Martha [facility] [place] [address] [place] [address] 12/27/2023 Martha [facility] [place] [address] [place] [address] 01/06/2024 Martha Handley ASSESSMENTS Encounter Date Diagnosis Assessment Notes Treatment Notes Treatment Clinical Notes Section Notes 08/12/2023 Mixed incontinence (ICD-10 - N39.46) 10/06/2023 Essential hypertension (ICD-10 - I10) stable continue current medication regimen Take your medications as directed Please report bp trending greater than 140/90, any sudden h/a, chest pain, shortness of breath, new or worsening edema Monitor bp per comm protocol 11/17/2023 Mild dementia with anxiety, unspecified dementia type (ICD-10 - F03.A4) Stable Continue to provide redirection and reorientation as needed Assist with ADL/IADL as needed Keep a calm and consistent environment Make notes as needed for reminders to alleviate frustration and anxiety 11/17/2023 Renal lesion (ICD-10 - N28.9) continue to monitor site 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 Recommend remaining as active as safely possible. Dexa ordered last visit, have not seen results, will check with daughter if this was done 11/17/2023 Essential hypertension (ICD-10 - I10) stable continue current medication regimen Take your medications as directed Please report bp trending greater than 140/90, any sudden h/a, chest pain, shortness of breath, new or worsening edema Monitor bp per comm protocol 10/06/2023 Mild dementia with anxiety, unspecified dementia type (ICD-10 - F03.A4) Stable Continue to provide redirection and reorientation as needed Assist with ADL/IADL as needed Keep a calm and consistent environment Make notes as needed for reminders to alleviate frustration and anxiety 10/06/2023 Other I personally spent a total of 63 minutes spent in [id number] and sbc-fqsl-sq-face evaluation of patient obtaining medical history, reviewing available medical records, reconciling medications, patient and nursing staff education, and coordination of care between patient/nursing staff/PCP/family/ POA. This time does not include time spent performing separately reportable services. All questions fielded and answered to satisfaction of patient and medical staff. Please contact myself or my team if you have any concerns or questions or need assistance 11/17/2023 Other I personally spent a total of 42 minutes spent in [id number] and fsj-[id number]-rb-face evaluation of patient obtaining medical history, reviewing [...] any concerns or questions or need assistance 02/16/2024 Other I personally spent a total of 35 minutes spent in [id number]-[id number] and rca-yjlh-bb-face evaluation of patient obtaining medical history, reviewing [...] questions or need assistance PLAN OF TREATMENT Pending Test Test Name Order Date DEXA 07/25/2023 Glycohemoglobin (GHb),Total 09/16/2023 Vitamin D, 25-Hydroxy 09/09/2023 Comprehensive Metabolic Panel (CMP), Ser um 09/09/2023 Insurance Providers Payer Name Payer Address Payer Phone Subscriber Number Group Number Insured Name Patient Relationship to Insured Coverage Start Date Coverage End Date [employer] [address] [address] [place] [address] [id number] Grams, Rayceal Self - patient is the insured MEDICAL (GENERAL) HISTORY Medical History History ICD Code Senile dementia F03.90 Adult hypothyroidism E03.9 Difficulty staying asleep G47.00 Other chronic pain G89.29 Hypertensive heart disease, unspecified whether heart failure present I11.9 Depression, recurrent F33.9 Anxiety F41.9 Constipation, unspecified K59.00
--- OUTSIDE RECORDS SUMMARY | 2024-08-01 00:04 | XMS_ITS | Data Portability ---
Author Organization [facility], [employer] Address [address] [place] [address] Care Team Providers Care Social And Human Services Assistant Name Role Phone WANG LAUREANO OTHER Assessment Encounter Date Assessment Date Assessment LastModified by Organization Details LastModified Time 12/15/2022 12/15/2022 Medication Changes labs to eval levels. Daughter was present and discussed the results of the cologuard. Discussed with patient and daughter the need for a colonoscopy and that a baseline colonoscopy is recommended colorectal cancer. Discussed with patient this is a very common disease and the third most common cancer in the [place]. Prevention is accomplished by screening asymptomatic individuals. The average [place] has a 6% risk for colon cancer, and this number is nearly doubled if there is a strong family history of this disease. However, the majority of patients diagnosed with this disease have no immediate family members with colon cancer. The current recommendation is to start screening at age 50 (or age 40 for those with first degree relative diagnosed with colon cancer before age 60). Since 97% of colorectal cancer starts as a polyp, the process can be interrupted, and a colonoscopy is a vital tool in the prevention of colon cancer. It was explained to the patient that recommendation for a subsequent colonoscopy is based on the endoscopic and pathological results of this exam and will be discussed when these are available. Counseled on other options: Cologuard and FOBT. Discussed potential consequences and outcomes of not having a colonoscopy and could lead to negative outcomes including, but not limited to , severe pain, cancer, and/or disability. Discussed risks, (of not having colonoscopy) and benefits (of having colonoscopy) to include necessity. Counseled patient on the other options with Cologuard and FOBT as well. Time was given to allow the opportunity to ask questions and consider their options. Patient verbalized understanding and still refused to have colonoscopy.. Urged patient about Colonoscopy given the purpose, necessity, and importance. After this discussion, the patient decided against having the Colonoscopy. The patient / daughter has the mental capacity to make this decision and demonstrated the ability to describe the concerns that I discussed. Despite insistence, patient / daughter still refused to have any testing done related to screening for colorectal cancer. Signs and symptoms of when to seek further care reviewed with patient/caregiver /family/facility staff. Patient to follow up with primary care provider or return to clinic for any worsening signs and symptoms. Always present to ER or Urgent Care with any progression of/alarming symptoms, significant changes in symptoms or any concerning or urgent matters. Patient/caregiver /family/facility staff verbalized agreement and understanding of treatment plan. F/U 4 weeks, sooner if needed [email or web address] Not available 12/15/2022 11:48:20 01/12/2023 01/12/2023 Medication Changes Tums BID Prilosec 40 mg qD PRN Senna 8.6 mg q HS hold for diarrhea Will give Tums daily for GERD and priolsec for the periods that Tums is not providing a benefit. Constipation with Senna q HS. Hold for diarrhea. Signs and symptoms of when to seek further care reviewed with patient/caregiver /family/facility staff. Patient to follow up with primary care provider or return to clinic for any worsening signs and symptoms. Always present to ER or Urgent Care with any progression of/alarming symptoms, significant changes in symptoms or any concerning or urgent matters. Patient/caregiver /family/facility staff verbalized agreement and understanding of treatment plan. F/U 8 weeks, sooner if needed [email or web address] Not available 01/12/2023 18:00:40 03/09/2023 03/09/2023 Medication Changes labs to eval levels Signs and symptoms of when to seek further care reviewed with patient/caregiver /family/facility staff. Patient to follow up with primary care provider or return to clinic for any worsening signs and symptoms. Always present to ER or Urgent Care with any progression of/alarming symptoms, significant changes in symptoms or any concerning or urgent matters. Patient/caregiver /family/facility staff verbalized agreement and understanding of treatment plan. F/U 8 weeks, sooner if needed [email or web address] Not available 03/10/2023 07:38:28 05/04/2023 05/04/2023 Medication Changes labs to eval levels to be done before next visit in 8 weeks. Scheduled for future. Signs and symptoms of when to seek further care reviewed with patient/caregiver /family/facility staff. Patient to follow up with primary care provider or return to clinic for any worsening signs and symptoms. Always present to ER or Urgent Care with any progression of/alarming symptoms, significant changes in symptoms or any concerning or urgent matters. Patient/caregiver /family/facility staff verbalized agreement and understanding of treatment plan. F/U 8 weeks, sooner if needed [email or web address] Not available 05/05/2023 05:55:04 06/28/2023 06/28/2023 Medication Changes D/C Claritin Xyzol 5 mg q HS labs to eval levels to be done before next visit which was not done. labs ordered to eval levels If Xyzol works better than Claritin and finds relief with such will look at stopping Flonase as well. Signs and symptoms of when to seek further care reviewed with patient/caregiver /family/facility staff. Patient to follow up with primary care provider or return to clinic for any worsening signs and symptoms. Always present to ER or Urgent Care with any progression of/alarming symptoms, significant changes in symptoms or any concerning or urgent matters. Patient/caregiver /family/facility staff verbalized agreement and understanding of treatment plan. F/U 8 weeks, sooner if needed Not available 06/28/2023 10:18:46 Plan of Treatment Reminders Order Date Submit Date Provider Last Modified By Organization Details Last Modified Time Details Appointments None recorded. Lab unlisted lab - vitamin D total, 25-hydroxy* [address], [place], [address], 3 13:15:54 urinalysis, dipstick, reflex micro [address], [place], [address], 3 15:14:51 lipid panel, serum [address], [place], [address], 3 13:15:53 TSH, serum or plasma 2022 023 ARMANDO Gay, [address], [place], [address], 3 13:15:53 T4, free, serum 2022 023 ARMANDO Gay, [address], [place], [address], 3 13:15:53 unlisted lab - vitamin D total, 25-hydroxy* [address], [place], [address], 3 15:15:42 unlisted lab - calcium, ionized, serum (A) [address], [place], [address], 3 02:13:13 lipid panel, serum [address], [place], [address], 3 15:15:42 TSH, serum or plasma [address], [place], [address], 3 15:15:42 T4, free, serum [address], [place], [address], 3 15:15:41 CMP, serum or plasma [address], [place], [address], 3 15:15:41 unlisted lab - complete blood count with auto diff* 2022 023 ARMANDO Gay, [address], [place], [address], 3 15:15:40 unlisted lab - vitamin D total, 25-hydroxy* 2022 023 leann Gay, [address], [place], [address], 3 10:36:20 unlisted lab - calcium, ionized, serum (A) 2022 023 leann Gay, [address], [place], [address], 3 10:36:20 lipid panel, serum 2022 023 leann Gay, [address], [place], [address], 3 10:36:21 TSH, serum or plasma 2022 023 leann Gay, [address], [place], [address], 3 10:36:20 T4, free, serum 2022 023 leann Gay, [address], [place], [address], 3 10:36:20 CMP, serum or plasma 2022 023 leann Gay, [address], [place], [address], 3 10:36:21 unlisted lab - complete blood count with auto diff* 2022 023 leann Victor Hugo, [address], [place], [address], 3 10:36:21 unlisted lab - vitamin D total, 25-hydroxy* [address], [place], [address], 3 14:39:49 unlisted lab - calcium, ionized, serum (A) [address], [place], [address], 3 22:11:12 lipid panel, serum [address], [place], [address], 3 14:39:48 TSH, serum or plasma [address], [place], [address], 3 14:39:49 T4, free, serum [address], [place], [address], 3 14:39:48 CMP, serum or plasma [address], [place], [address], 3 14:39:47 unlisted lab - complete blood count with auto diff* [address], [place], [address], 14:39:46 Referral None recorded. Procedures None recorded. Surgeries None recorded. Imaging None recorded. Medication Orders senna 8.6 mg tablet 2022 023 [facility], [address], [address], [place], [address], 3 10:37:07 Tums 200 mg (as calcium carbonate 500 mg) chewable tablet 2022 023 [facility], [address], [address], [place], [address], 3 10:37:08 omeprazole 40 mg capsule,del ayed release 2022 023 [facility], [address], [address], [place], [address], 3 10:37:07 Prolia 60 mg/mL subcutaneou s syringe 2022 023 [facility], [address], [address], [place], [address], 3 13:03:46 Xyzal 5 mg tablet 2022 023 Bur[facility] Buru, [address] [place], [place] [address]y, [address] [place] [address], [address], 3 10:20:36 Patient TargetsNo targets recorded. Patient Instructions Encounter Date Encounter Id Patient Instructions Last Modified By Organization Details Last Modified Time 12/15/2022 [id number] instructions to assisted living home* - Orders for Urine sent to [facility]. Please obtain urine and send to [facility]. [facility] Not available 12/15/2022 14:30:50 Reason for Referral None Reported. Results Created Date Observation Date Name Description Value Unit Range Abnormal Flag Note LastModifiedBy Organization Detail LastModifiedTime 12/18/19 23 12/17/2022 FREE T4* FT4 0.84 NG/mL 0.80-2 .70 Not Available [facility] [address], [place], [address], 12/18/2022 13:15:52 12/18/19 23 12/17/2022 LIPID PANEL * cholesterol 177 mg/dL <200 Natio nal Katlyn stero l Educa tion Progr am (NCEP ) guide lines : Bulmaro able: <200 mg/dL Borde rline : 200-2 39 mg/dL High: =>240 mg/dL Not Available [facility] [address], [place], [address], 12/18/2022 13:15:53 12/18/19 23 12/17/2022 LIPID PANEL * LDL 76 mg/dL <100 Natio nal Katlyn stero l Educa tion Progr am (NCEP ) Guide lines : Optim al: <100 mg/dL Near Optim al: 100 - 129 mg/dL Borde rline : 130 - 159 mg/dL High: 160 - 189 mg/dL Very High: =>190 mg/dL Not Available [facility] [address], [place], [address], 12/18/2022 13:15:53 12/18/19 23 12/17/2022 LIPID PANEL * HDL 83 mg/dL 40-59 high Natio nal Katlyn stero l Educa tion Progr am (NCEP ) guide lines : Low: <40 mg/dL High: =>60 mg/dL Not Available [facility] [address], [place], [address], 12/18/2022 13:15:53 12/18/19 23 12/17/2022 LIPID PANEL * triglyceride s 77 mg/dL <150 Natio nal Katlyn stero l Educa tion Progr am (NCEP ) guide lines : Nina l: <150 mg/dL Borde rline : 150-1 99 mg/dL High: 200-4 99 mg/dL Very High: =>500 mg/dL Not Available [facility] [address], [place], [address], 12/18/2022 13:15:53 12/18/19 23 12/17/2022 LIPID PANEL * VLDL 15 mg/dL <30 Not Available [facility] [address], [place], [address], 12/18/2022 13:15:53 12/18/19 23 12/17/2022 TSH* TSH 1.082 uIU/m L 0.500- 8.900 Not Available [facility] [address], [place], [address], 12/18/2022 13:15:53 12/18/19 23 12/17/2022 VITAM IN D TOTAL , 25-HY DROXY * vitamin D total, 25-hydroxy 109.7 NG/mL Refer ence Range and Inter preta tion: 0 - 17 Years : ----- ----- --- Defic iency <20 ng/mL Optim um Level >80 ng/mL 18 Years and Older : ----- ----- ----- ---- Sever e Defic iency <10 ng/mL Mild- Moder ate Defic iency 10 - 24 ng/mL Optim al Level 25 - 80 ng/mL Toxic ity Possi ble >80 ng/mL Not Available [facility] [address], [place], [address], 12/18/2022 13:15:54 03/11/20 23 03/11/2023 COMPL ETE BLOOD COUNT WITH AUTO DIFF* WBC 5.42 10E3/ uL 4.50-1 1.50 Not Available [facility] [address], [place], [address], 03/12/2023 15:15:40 03/11/20 23 03/11/2023 COMPL ETE BLOOD COUNT WITH AUTO DIFF* RBC 3.74 10E6/ uL 4.00-5 .40 low Not Available [facility] [address], [place], [address], 03/12/2023 15:15:40 03/11/20 23 03/11/2023 COMPL ETE BLOOD COUNT WITH AUTO DIFF* HGB 12.4 g/dL 12.0-1 5.0 Not Available [facility] [address], [place], [address], 03/12/2023 15:15:40 03/11/20 23 03/11/2023 COMPL ETE BLOOD COUNT WITH AUTO DIFF* HCT 39.3 % 35.0-4 9.0 Not Available [facility] [address], [place], [address], 03/12/2023 15:15:40 03/11/20 23 03/11/2023 COMPL ETE BLOOD COUNT WITH AUTO DIFF* MCV 105 fL 80-100 high Not Available [facility] [address], [place], [address], 03/12/2023 15:15:40 03/11/20 23 03/11/2023 COMPL ETE BLOOD COUNT WITH AUTO DIFF* MCH 33 pg 26-32 high Not Available [facility] [address], [place], [address], 03/12/2023 15:15:40 03/11/20 23 03/11/2023 COMPL ETE BLOOD COUNT WITH AUTO DIFF* MCHC 32 g/dL 32-36 Not Available [facility] [address], [place], [address], 03/12/2023 15:15:40 03/11/20 23 03/11/2023 COMPL ETE BLOOD COUNT WITH AUTO DIFF* RDW 12.3 % 11.5-1 4.5 Not Available [facility] [address], [place], [address], 03/12/2023 15:15:40 03/11/20 23 03/11/2023 COMPL ETE BLOOD COUNT WITH AUTO DIFF* plt 207 10E3/ uL 150-45 0 Not Available [facility] [address], [place], [address], 03/12/2023 15:15:40 03/11/20 23 03/11/2023 COMPL ETE BLOOD COUNT WITH AUTO DIFF* neut% 60.8 % 50.0-7 0.0 Not Available [facility] [address], [place], [address], 03/12/2023 15:15:40 03/11/20 23 03/11/2023 COMPL ETE BLOOD COUNT WITH AUTO DIFF* lymph% 22.5 % 18.0-4 2.0 Not Available [facility] [address], [place], [address], 03/12/2023 15:15:40 03/11/20 23 03/11/2023 COMPL ETE BLOOD COUNT WITH AUTO DIFF* mono% 9.8 % 2.0-11 .0 Not Available [facility] [address], [place], [address], 03/12/2023 15:15:40 03/11/20 23 03/11/2023 COMPL ETE BLOOD COUNT WITH AUTO DIFF* eos% 5.2 % 1.0-3. 0 high Not Available [facility] [address], [place], [address], 03/12/2023 15:15:40 03/11/20 23 03/11/2023 COMPL ETE BLOOD COUNT WITH AUTO DIFF* baso% 1.5 % 0.0-2. 0 Not Available [facility] [address], [place], [address], 03/12/2023 15:15:40 03/11/20 23 03/11/2023 COMPL ETE BLOOD COUNT WITH AUTO DIFF* Ig% 0.2 % 0.0-0. 6 Not Available [facility] [address], [place], [address], 03/12/2023 15:15:40 03/11/20 23 03/11/2023 COMPL ETE BLOOD COUNT WITH AUTO DIFF* neut# 3.30 10E3/ uL 2.30-8 .10 Not Available [facility] [address], [place], [address], 03/12/2023 15:15:40 03/11/20 23 03/11/2023 COMPL ETE BLOOD COUNT WITH AUTO DIFF* lymph# 1.22 10E3/ uL 0.80-4 .80 Not Available [facility] [address], [place], [address], 03/12/2023 15:15:40 03/11/20 23 03/11/2023 COMPL ETE BLOOD COUNT WITH AUTO DIFF* mono# 0.53 10E3/ uL 0.45-1 .30 Not Available [facility] [address], [place], [address], 03/12/2023 15:15:40 03/11/20 23 03/11/2023 COMPL ETE BLOOD COUNT WITH AUTO DIFF* eos# 0.28 10E3/ uL 0.00-0 .40 Not Available [facility] [address], [place], [address], 03/12/2023 15:15:40 03/11/20 23 03/11/2023 COMPL ETE BLOOD COUNT WITH AUTO DIFF* baso# 0.08 10E3/ uL 0.00-0 .10 Not Available [facility] [address], [place], [address], 03/12/2023 15:15:40 03/11/20 23 03/11/2023 COMPL ETE BLOOD COUNT WITH AUTO DIFF* Ig# 0.01 10E3/ uL 0.00-0 .09 Not Available [facility] [address], [place], [address], 03/12/2023 15:15:40 03/11/20 23 03/11/2023 COMPL ETE BLOOD COUNT WITH AUTO DIFF* reflex SMEAR REVIEW Not Available [facility] [address], [place], [address], 03/12/2023 15:15:40 03/11/20 23 03/11/2023 COMPR EHENS MOHIT METAB OLIC PANEL * glucose 102 mg/dL 82-115 Not Available [facility] [address], [place], [address], 03/12/2023 15:15:41 03/11/20 23 03/11/2023 COMPR EHENS MOHIT METAB OLIC PANEL * BUN 30 mg/dL 8-23 high Not Available [facility] [address], [place], [address], 03/12/2023 15:15:41 03/11/20 23 03/11/2023 COMPR EHENS MOHIT METAB OLIC PANEL * calcium 9.0 mg/dL 8.8-10 .2 Not Available [facility] [address], [place], [address], 03/12/2023 15:15:41 03/11/20 23 03/11/2023 COMPR EHENS MOHIT METAB OLIC PANEL * creatinine 1.17 mg/dL 0.60-1 .20 Not Available [facility] [address], [place], [address], 03/12/2023 15:15:41 03/11/20 23 03/11/2023 COMPR EHENS MOHIT METAB OLIC PANEL * egfraa 54.80 mL/mi n/1.7 3m2 >60.00 low Refer ence Range for Chron ic Kidne y Disea se (CKD) GFR CKD Stage >60 Stage 1 or 2 30-60 Stage 3 15-29 Stage 4 <15 Stage 5 Not Available [facility] [address], [place], [address], 03/12/2023 15:15:41 03/11/20 23 03/11/2023 COMPR EHENS MOHIT METAB OLIC PANEL * egfrnaa 45.22 mL/mi n/1.7 3m2 >60.00 low Refer ence Range for Chron ic Kidne y Disea se (CKD) GFR CKD Stage >60 Stage 1 or 2 30-60 Stage 3 15-29 Stage 4 <15 Stage 5 Not Available [facility] [address], [place], [address], 03/12/2023 15:15:41 03/11/20 23 03/11/2023 COMPR EHENS MOHIT METAB OLIC PANEL * sodium 139 mmol/ L 136-14 5 Not Available [facility] [address], [place], [address], 03/12/2023 15:15:41 03/11/20 23 03/11/2023 COMPR EHENS MOHIT METAB OLIC PANEL * potassium 4.7 mmol/ L 3.5-5. 1 Not Available [facility] [address], [place], [address], 03/12/2023 15:15:41 03/11/20 23 03/11/2023 COMPR EHENS MOHIT METAB OLIC PANEL * chloride 100 mEq/L 98-107 Not Available [facility] [address], [place], [address], 03/12/2023 15:15:41 03/11/20 23 03/11/2023 COMPR EHENS MOHIT METAB OLIC PANEL * carbon dioxide 29 mmol/ L 23-30 Not Available [facility] [address], [place], [address], 03/12/2023 15:15:41 03/11/20 23 03/11/2023 COMPR EHENS MOHIT METAB OLIC PANEL * total protein 6.1 g/dL 6.2-8. 1 low Not Available [facility] [address], [place], [address], 03/12/2023 15:15:41 03/11/20 23 03/11/2023 COMPR EHENS MOHIT METAB OLIC PANEL * albumin 3.7 g/dL 3.2-4. 6 Not Available [facility] [address], [place], [address], 03/12/2023 15:15:41 03/11/20 23 03/11/2023 COMPR EHENS MOHIT METAB OLIC PANEL * globulin 2.4 g/dL 2.3-3. 4 Not Available [facility] [address], [place], [address], 03/12/2023 15:15:41 03/11/20 23 03/11/2023 COMPR EHENS MOHIT METAB OLIC PANEL * A/G ratio 1.5 g/dL 0.8-2. 0 Not Available [facility] [address], [place], [address], 03/12/2023 15:15:41 03/11/20 23 03/11/2023 COMPR EHENS MOHIT METAB OLIC PANEL * alkaline phosphatase 46 U/L 30-120 Not Available [facility] [address], [place], [address], 03/12/2023 15:15:41 03/11/20 23 03/11/2023 COMPR EHENS MOHIT METAB OLIC PANEL * ALT (SGPT) 20 U/L 10-28 Not Available [facility] [address], [place], [address], 03/12/2023 15:15:41 03/11/20 23 03/11/2023 COMPR EHENS MOHIT METAB OLIC PANEL * AST (SGOT) 14 U/L 9-36 Not Available [facility] [address], [place], [address], 03/12/2023 15:15:41 03/11/20 23 03/11/2023 COMPR EHENS MOHIT METAB OLIC PANEL * bilirubin, total 0.45 mg/dL 0.20-1 .10 Not Available [facility] [address], [place], [address], 03/12/2023 15:15:41 03/11/20 23 03/11/2023 FREE T4* FT4 0.85 NG/mL 0.80-2 .70 Not Available [facility] [address], [place], [address], 03/12/2023 15:15:41 03/11/20 23 03/11/2023 LIPID PANEL * cholesterol 190 mg/dL <200 Natio nal Katlyn stero l Educa tion Progr am (NCEP ) guide lines : Bulmaro able: <200 mg/dL Borde rline : 200-2 39 mg/dL High: =>240 mg/dL Not Available [facility] [address], [place], [address], 03/12/2023 15:15:41 03/11/20 23 03/11/2023 LIPID PANEL * LDL 88 mg/dL <100 Natio nal Katlyn stero l Educa tion Progr am (NCEP ) Guide lines : Optim al: <100 mg/dL Near Optim al: 100 - 129 mg/dL Borde rline : 130 - 159 mg/dL High: 160 - 189 mg/dL Very High: =>190 mg/dL Not Available [facility] [address], [place], [address], 03/12/2023 15:15:41 03/11/20 23 03/11/2023 LIPID PANEL * HDL 78 mg/dL 40-59 high Natio nal Katlyn stero l Educa tion Progr am (NCEP ) guide lines : Low: <40 mg/dL High: =>60 mg/dL Not Available [facility] [address], [place], [address], 03/12/2023 15:15:41 03/11/20 23 03/11/2023 LIPID PANEL * triglyceride s 94 mg/dL <150 Natio nal Katlyn stero l Educa tion Progr am (NCEP ) guide lines : Nina l: <150 mg/dL Borde rline : 150-1 99 mg/dL High: 200-4 99 mg/dL Very High: =>500 mg/dL Not Available [facility] [address], [place], [address], 03/12/2023 15:15:41 03/11/20 23 03/11/2023 LIPID PANEL * VLDL 19 mg/dL <30 Not Available [facility] [address], [place], [address], 03/12/2023 15:15:41 03/11/20 23 03/11/2023 TSH* TSH 0.999 uIU/m L 0.500- 8.900 Not Available [facility] [address], [place], [address], 03/12/2023 15:15:42 03/11/20 23 03/11/2023 VITAM IN D TOTAL , 25-HY DROXY * vitamin D total, 25-hydroxy 91.9 NG/mL Refer ence Range and Inter preta tion: 0 - 17 Years : ----- ----- --- Defic iency <20 ng/mL Optim um Level >80 ng/mL 18 Years and Older : ----- ----- ----- ---- Sever e Defic iency <10 ng/mL Mild- Moder ate Defic iency 10 - 24 ng/mL Optim al Level 25 - 80 ng/mL Toxic ity Possi ble >80 ng/mL Not Available [facility] [address], [place], [address], 03/12/2023 15:15:42 03/11/20 23 03/11/2023 CALCI UM, IONIZ ED, SERUM (A) calcium ionized pH 7.4 1.25 mmol/ L 1.09-1 .30 REFER ENCE INTER DEANDRA: Calci um Ioniz ed pH 7.4 Acces s compl ete set of age- and/o r gende r-spe cific refer ence inter vals for this test in the [facility] atory Test [facility] ([facility]). Not Available [facility] [address], [place], [address], 03/16/2023 02:13:10 03/11/2003/11/2023 CALCI UM, IONIZ ED, SERUM (A) calcium, ionized serum 1.24 mmol/ L 1.09-1 .30 INTER PRETI VE INFOR MATIO N: Calci um, Ioniz ed, Serum Diffe rence s betwe en the ioniz ed calci um resul t and the ioniz ed calci um nina lized to pH 7.4 are due to the sampl e havin g a pH signi fican tly diffe rent from pH 7.4. Sampl e pH may be artif icial ly decre ased due to delay ed proce ssing and may be incre ased when the sampl e is expos ed to air. Due to these facto rs it is recom constanza d that the ioniz ed calci um nina lized to pH 7.4 be inter prete d with cauti on and only used when the clini janneth has knowl edge of the patie nt's acid/ base statu s. Accur ate deter minat ion of in vivo pH is best deter mined by arter ial blood gas testi ng. Acces s compl ete set of age- and/o r gende r-spe cific refer ence inter vals for this test in the [facility] Labor atory Test [facility] ([facility]). Perfo rmed By: [facility] Labor atori es [address] [place] [address] Labor atory [facility] tor: Aram agudelo MD, PhD Not Available [facility] [address], [place], [address], 03/16/2023 02:13:10 06/29/20 23 06/29/2023 COMPL ETE BLOOD COUNT WITH AUTO DIFF* WBC 6.02 10E3/ uL 4.50-1 1.50 Not Available [facility] [address], [place], [address], 06/30/2023 14:39:46 06/29/20 23 06/29/2023 COMPL ETE BLOOD COUNT WITH AUTO DIFF* RBC 4.47 10E6/ uL 4.00-5 .40 Not Available [facility] [address], [place], [address], 06/30/2023 14:39:46 06/29/20 23 06/29/2023 COMPL ETE BLOOD COUNT WITH AUTO DIFF* HGB 14.7 g/dL 12.0-1 5.0 Not Available [facility] [address], [place], [address], 06/30/2023 14:39:46 06/29/20 23 06/29/2023 COMPL ETE BLOOD COUNT WITH AUTO DIFF* HCT 45.9 % 35.0-4 9.0 Not Available [facility] [address], [place], [address], 06/30/2023 14:39:46 06/29/20 23 06/29/2023 COMPL ETE BLOOD COUNT WITH AUTO DIFF* MCV 103 fL 80-100 high Not Available [facility] [address], [place], [address], 06/30/2023 14:39:46 06/29/20 23 06/29/2023 COMPL ETE BLOOD COUNT WITH AUTO DIFF* MCH 33 pg 26-32 high Not Available [facility] [address], [place], [address], 06/30/2023 14:39:46 06/29/2006/29/2023 COMPL ETE BLOOD COUNT WITH AUTO DIFF* MCHC 32 g/dL 32-36 Not Available [facility] [address], [place], [address], 06/30/2023 14:39:46 06/29/20 23 06/29/2023 COMPL ETE BLOOD COUNT WITH AUTO DIFF* RDW 11.9 % 11.5-1 4.5 Not Available [facility] [address], [place], [address], 06/30/2023 14:39:46 06/29/20 23 06/29/2023 COMPL ETE BLOOD COUNT WITH AUTO DIFF* plt 255 10E3/ uL 150-45 0 Not Available [facility] [address], [place], [address], 06/30/2023 14:39:46 06/29/20 23 06/29/2023 COMPL ETE BLOOD COUNT WITH AUTO DIFF* neut% 70.3 % 50.0-7 0.0 high Not Available [facility] [address], [place], [address], 06/30/2023 14:39:46 06/29/20 23 06/29/2023 COMPL ETE BLOOD COUNT WITH AUTO DIFF* lymph% 14.1 % 18.0-4 2.0 low Not Available [facility] [address], [place], [address], 06/30/2023 14:39:46 06/29/20 23 06/29/2023 COMPL ETE BLOOD COUNT WITH AUTO DIFF* mono% 10.5 % 2.0-11 .0 Not Available [facility] [address], [place], [address], 06/30/2023 14:39:46 06/29/20 23 06/29/2023 COMPL ETE BLOOD COUNT WITH AUTO DIFF* eos% 3.5 % 1.0-3. 0 high Not Available [facility] [address], [place], [address], 06/30/2023 14:39:46 06/29/20 23 06/29/2023 COMPL ETE BLOOD COUNT WITH AUTO DIFF* baso% 1.3 % 0.0-2. 0 Not Available [facility] [address], [place], [address], 06/30/2023 14:39:46 06/29/20 23 06/29/2023 COMPL ETE BLOOD COUNT WITH AUTO DIFF* Ig% 0.3 % 0.0-0. 6 Not Available [facility] [address], [place], [address], 06/30/2023 14:39:46 06/29/20 23 06/29/2023 COMPL ETE BLOOD COUNT WITH AUTO DIFF* neut# 4.23 10E3/ uL 2.30-8 .10 Not Available [facility] [address], [place], [address], 06/30/2023 14:39:46 06/29/20 23 06/29/2023 COMPL ETE BLOOD COUNT WITH AUTO DIFF* lymph# 0.85 10E3/ uL 0.80-4 .80 Not Available [facility] [address], [place], [address], 06/30/2023 14:39:46 06/29/20 23 06/29/2023 COMPL ETE BLOOD COUNT WITH AUTO DIFF* mono# 0.63 10E3/ uL 0.45-1 .30 Not Available [facility] [address], [place], [address], 06/30/2023 14:39:46 06/29/20 23 06/29/2023 COMPL ETE BLOOD COUNT WITH AUTO DIFF* eos# 0.21 10E3/ uL 0.00-0 .40 Not Available [facility] [address], [place], [address], 06/30/2023 14:39:46 06/29/20 23 06/29/2023 COMPL ETE BLOOD COUNT WITH AUTO DIFF* baso# 0.08 10E3/ uL 0.00-0 .10 Not Available [facility] [address], [place], [address], 06/30/2023 14:39:46 06/29/2006/29/2023 COMPL ETE BLOOD COUNT WITH AUTO DIFF* Ig# 0.02 10E3/ uL 0.00-0 .09 Not Available [facility] [address], [place], [address], 06/30/2023 14:39:46 06/29/20 23 06/29/2023 COMPR EHENS MOHIT METAB OLIC PANEL * glucose 114 mg/dL 70-99 high The Ameri can Diabe christen Assoc iatio n (ADA) recom mends the follo wing crite shasta for the diagn osis of diabe christen: 1) Sympt oms of diabe christen and a rando m gluco se >200 mg/dL OR 2) Fasti ng gluco se >= 126 mg/dL on more than one occas ion. Impai red fasti ng gluco se (IFG) , a fasti ng gluco se betwe en 100 and 125 mg/dL , is defin ed by the ADA as a categ ory at risk for futur e diabe christen and cardi ovasc ular disea se (Pred iabet es). Not Available [facility] [address], [place], [address], 06/30/2023 14:39:47 06/29/20 23 06/29/2023 COMPR EHENS MOHIT METAB OLIC PANEL * BUN 27 mg/dL 8-23 high Not Available [facility] [address], [place], [address], 06/30/2023 14:39:47 06/29/20 23 06/29/2023 COMPR EHENS MOHIT METAB OLIC PANEL * calcium 9.9 mg/dL 8.8-10 .2 Not Available [facility] [address], [place], [address], 06/30/2023 14:39:47 06/29/20 23 06/29/2023 COMPR EHENS MOHIT METAB OLIC PANEL * creatinine 1.27 mg/dL 0.60-1 .20 high Not Available [facility] [address], [place], [address], 06/30/2023 14:39:47 06/29/2006/29/2023 COMPR EHENS MOHIT METAB OLIC PANEL * sodium 136 mmol/ L 136-14 5 Not Available [facility] [address], [place], [address], 06/30/2023 14:39:47 06/29/2006/29/2023 COMPR EHENS MOHIT METAB OLIC PANEL * potassium 5.1 mmol/ L 3.5-5. 1 Not Available [facility] [address], [place], [address], 06/30/2023 14:39:47 06/29/20 23 06/29/2023 COMPR EHENS MOHIT METAB OLIC PANEL * chloride 98 mEq/L 98-107 Not Available [facility] [address], [place], [address], 06/30/2023 14:39:47 06/29/20 23 06/29/2023 COMPR EHENS MOHIT METAB OLIC PANEL * carbon dioxide 26 mmol/ L 23-30 Not Available [facility] [address], [place], [address], 06/30/2023 14:39:47 06/29/20 23 06/29/2023 COMPR EHENS MOHIT METAB OLIC PANEL * total protein 7.4 g/dL 6.2-8. 1 Not Available [facility] [address], [place], [address], 06/30/2023 14:39:47 06/29/2006/29/2023 COMPR EHENS MOHIT METAB OLIC PANEL * albumin 4.5 g/dL 3.2-4. 6 Not Available [facility] [address], [place], [address], 06/30/2023 14:39:47 06/29/2014 0706/29/2023 COMPR EHENS MOHIT METAB OLIC PANEL * globulin 2.9 g/dL 2.3-3. 4 Not Available [facility] [address], [place], [address], 06/30/2023 14:39:47 06/29/20 23 06/29/2023 COMPR EHENS MOHIT METAB OLIC PANEL * A/G ratio 1.6 g/dL 0.8-2. 0 Not Available [facility] [address], [place], [address], 06/30/2023 14:39:47 06/29/20 23 06/29/2023 COMPR EHENS MOHIT METAB OLIC PANEL * alkaline phosphatase 49 U/L 30-120 Not Available [facility] [address], [place], [address], 06/30/2023 14:39:47 06/29/20 23 06/29/2023 COMPR EHENS MOHIT METAB OLIC PANEL * ALT (SGPT) 23 U/L 10-28 Not Available [facility] [address], [place], [address], 06/30/2023 14:39:47 06/29/20 23 06/29/2023 COMPR EHENS MOHIT METAB OLIC PANEL * AST (SGOT) 19 U/L 9-36 Not Available [facility] [address], [place], [address], 06/30/2023 14:39:47 06/29/20 23 06/29/2023 COMPR EHENS MOHIT METAB OLIC PANEL * bilirubin, total 0.38 mg/dL 0.20-1 .10 Not Available [facility] [address], [place], [address], 06/30/2023 14:39:47 06/29/20 23 06/29/2023 COMPR EHENS MOHIT METAB OLIC PANEL * eGFR 44.28 mL/mi n/1.7 3m2 >60.00 low Refer ence Range for Chron ic Kidne y Disea se (CKD) GFR CKD Stage >60 Stage 1 or 2 30-60 Stage 3 15-29 Stage 4 <15 Stage 5 The estim ated tad brock filtr ation rate (eGFR ) was deter mined using the 2020 CKD-E PI creat inine equat ion, which does not consi terrance race as a facto r. This equat ion is for indiv idual s aged >=18 years with the resul t adjus vimal to a body surfa ce area of 1.73 m2. This calcu latio n has been updat ed on labor atory repor ts effec tive 03/29 . Not Available [facility] [address], [place], [address], 06/30/2023 14:39:47 06/29/20 23 06/29/2023 FREE T4* FT4 1.01 NG/mL 0.80-2 .70 Not Available [facility] [address], [place], [address], 06/30/2023 14:39:47 06/29/20 23 06/29/2023 LIPID PANEL * cholesterol 200 mg/dL <200 high Natio nal Katlyn stero l Educa tion Progr am (NCEP ) guide lines : Bulmaro able: <200 mg/dL Borde rline : 200-2 39 mg/dL High: =>240 mg/dL Not Available [facility] [address], [place], [address], 06/30/2023 14:39:48 06/29/20 23 06/29/2023 LIPID PANEL * LDL 81 mg/dL <100 Natio nal Katlyn stero l Educa tion Progr am (NCEP ) Guide lines : Optim al: <100 mg/dL Near Optim al: 100 - 129 mg/dL Borde rline : 130 - 159 mg/dL High: 160 - 189 mg/dL Very High: =>190 mg/dL Not Available [facility] [address], [place], [address], 06/30/2023 14:39:48 06/29/20 23 06/29/2023 LIPID PANEL * HDL 92 mg/dL 40-59 high Natio nal Katlyn stero l Educa tion Progr am (NCEP ) guide lines : Low: <40 mg/dL High: =>60 mg/dL Not Available [facility] [address], [place], [address], 06/30/2023 14:39:48 06/29/20 23 06/29/2023 LIPID PANEL * triglyceride s 146 mg/dL <150 Natio nal Katlyn stero l Educa tion Progr am (NCEP ) guide lines : Nina l: <150 mg/dL Borde rline : 150-1 99 mg/dL High: 200-4 99 mg/dL Very High: =>500 mg/dL Not Available [facility] [address], [place], [address], 06/30/2023 14:39:48 06/29/20 23 06/29/2023 LIPID PANEL * VLDL 29 mg/dL <30 Not Available [facility] [address], [place], [address], 06/30/2023 14:39:48 06/29/20 23 06/29/2023 TSH* TSH 1.205 uIU/m L 0.350- 4.250 Not Available [facility] [address], [place], [address], 06/30/2023 14:39:49 06/29/20 23 06/29/2023 VITAM IN D TOTAL , 25-HY DROXY * vitamin D total, 25-hydroxy 73.7 NG/mL Refer ence Range and Inter preta tion: 0 - 17 Years : ----- ----- --- Defic iency <20 ng/mL Optim um Level >80 ng/mL 18 Years and Older : ----- ----- ----- ---- Sever e Defic iency <10 ng/mL Mild- Moder ate Defic iency 10 - 24 ng/mL Optim al Level 25 - 80 ng/mL Toxic ity Possi ble >80 ng/mL Not Available [facility] [address], [place], [address], 06/30/2023 14:39:49 06/29/20 23 06/29/2023 CALCI UM, IONIZ ED, SERUM (A) calcium ionized pH 7.4 1.26 mmol/ L 1.09-1 .30 REFER ENCE INTER DEANDRA: Calci um Ioniz ed pH 7.4 Acces s compl ete set of age- and/o r gende r-spe cific refer ence inter vals for this test in the [facility] Labor atory Test Direc tor ([facility]). Not Available [facility] [address], [place], [address], 07/01/2023 22:11:12 06/29/20 23 06/29/2023 CALCI UM, IONIZ ED, SERUM (A) calcium, ionized serum 1.30 mmol/ L 1.09-1 .30 INTER PRETI VE INFOR MATIO N: Calci um, Ioniz ed, Serum Diffe rence s betwe en the ioniz ed calci um resul t and the ioniz ed calci um nina lized to pH 7.4 are due to the sampl e havin g a pH signi fican tly diffe rent from pH 7.4. Sampl e pH may be artif icial ly decre ased due to delay ed proce ssing and may be incre ased when the sampl e is expos ed to air. Due to these facto rs it is recom constanza d that the ioniz ed calci um nina lized to pH 7.4 be inter prete d with cauti on and only used when the clini janneth has knowl edge of the patie nt's acid/ base statu s. Accur ate deter minat ion of in vivo pH is best deter mined by arter ial blood gas testi ng. Acces s compl ete set of age- and/o r gende r-spe cific refer ence inter vals for this test in the [facility] at[facility] Test Direc corona ([facility] lab.c om). Perfo rmed By: [facility] Labor atori es [address] [place] [address] Labor atory Direc tor: Aram agudelo MD, PhD JOSE RAMON Ulrich r: [id number] Not Available [facility] [address], [place], [address], 07/01/2023 22:11:12 Result Notes None recorded. Problems Name Problem SNOMED Code Status Onset Date Resolution Date Notes Provider Name and Address Organization Details Recorded Time Osteoporo sis 83518628 Active 2022 Jessica Lit Alberto, [employer]-BC, PMHNP-BC [address], [place], [address], [place] [facility] 3 14:56:35 Recurrent major depressio n 98378872 Active 2022 Jessica Lit Alberto, [employer]-BC, PMHNP-BC [address], [place], [address], [place] [facility] 3 14:56:35 Dementia with behaviora l disturban ce 609809153533 3 Completed 202212/12/2022 Jessica Lit Alberto, [employer]-BC, PMHNP-BC [address], [place], [address], [place] [facility] 3 14:57:11 Vitamin D deficienc y 16309814 Active 2022 Jessica Lit Alberto, [employer]-BC, PMHNP-BC [address], [place], [address], [place] [facility] 3 14:56:35 Hypothyro idism 36078641 Active 2022 Jessica Dominguez, [employer]-BC, PMHNP-BC [address], [place], [address], [place] [facility] 3 14:56:35 Osteoarth ritis of multiple joints 405435134 Active 2022 BILLIE Ureña-BC, PMHNP-BC [address], [place], [address], [facility] 3 14:56:35 Allergic rhinitis 70907681 Active 2022 AMAURY UreñaP-BC, PMHNP-BC [address], [place], [address], [facility] 3 14:56:35 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 Procedures Surgical History Date Name Laterality Status Provider Name and Address Organization Details Recorded Time extraction of cataract completed [facility] 09/07/2022 14:23:25 complete repair of rotator cuff completed [facility] 09/07/2022 14:38:19 complete repair of rotator cuff completed [facility] 09/07/2022 14:38:29 Total hysterectomy completed [facility] 09/07/2022 14:38:56 Imaging Results None recorded. Procedure Notes None recorded. Medical Equipment None Reported. Allergies Allergen ID Allergen Name Allergen Category Reaction Reaction Severity Criticality Documentation Date Start Date Code Code System Note Provider Name and Address Organization Details Recorded Time 5704 aspirin medicatio n vomiting Not available Not available 09/07/2022 1191 RxNorm Phi Dominguez null, [facility] 3 10:05:40 5705 bee pollen environme nt,medica tion swelling Not available Not available 09/07/2022 79835 7 RxNorm Phi Dominguez null, [facility] 3 10:05:50 5706 honey bee venom medicatio n Not available Not available Not available 09/07/2022 04573 7 RxNorm Phi Dominguez null, [facility] 3 10:06:00 5707 ibuprofen medicatio n abdominal pain Not available Not available 09/07/2022 5640 RxNorm hPi gold, [facility] 3 10:06:06 5708 iodine medicatio n Not available Not available Not available 09/07/2022 5933 RxNorm Phi gold, [facility] 3 10:06:13 5709 Non-stero idal anti-infl ammatory agent (product) medicatio n Not available Not available Not available 09/07/2022 46650 005 SNOMED Phi gold, [facility] 3 10:06:25 5710 codeine medicatio n Not available Not available Not available 09/07/2022 2670 RxNorm Phi gold, [facility] 3 10:06:32 Medications Name Sig Start Date Stop Date Status Note LastModified by Organization Details LastModified Time quetiapin e 25 mg tablet Take 1 tablet every day by oral route at bedtime for 90 days. active Not Available Not Available No t Available senna 8.6 mg tablet Take 1 tablet every day by oral route at bedtime for 90 days. active Not Available Not Available No t Available donepezil 10 mg tablet TAKE 1 TABLET BY MOUTH EVERY DAY active Not Available Not Available No t Available spironola ctone 100 mg tablet TAKE 1 TABLET BY MOUTH ONCE DAILY active Not Available Not Available No t Available sertralin e 100 mg tablet Take 1.5 tablets orally daily x 5 days then take 1 tablet orally daily x 5 days then 0.5 tablet daily x 5 days. 10/21 completed Not Available Not Available Not Available Calcium Antacid 200 mg (as calcium carbonate 500 mg) chewable tablet Take 1 tablet twice a day by oral route for 90 days. active Not Available Not Available No t Available omeprazol e 40 mg capsule,d elayed release Take 1 capsule every day by oral route as needed for 90 days. active Not Available Not Available No t Available acetamino phen 500 mg tablet Take 1 tablet every 12 hours by oral route as needed. 09/09 completed Not Available Not Available Not Available acetamino phen ER 650 mg tablet,ex tended release Take 2 tablets 3 times a day by oral route for 90 days. active Not Available Not Available No t Available calcium 600 mg (as calcium carbonate 1,500 mg) tablet Take 1 tablet twice a day by oral route for 90 days. 01/12 completed Not Available Not Available Not Available Percocet 10 mg-325 mg tablet Take 1 tablet every 6 hours by oral route as needed. 09/23 completed Not Available Not Available Not Available levothyro xine 50 mcg tablet TAKE 1 TABLET BY MOUTH ONCE DAILY active Not Available Not Available No t Available bisacodyl 10 mg rectal supposito ry INSERT 1 SUPPOSIT ORY (10 MG) RECTALLY DAILY NEEDED FOR CONSTIPA TION 09/09 completed Not Available Not Available Not Available sertralin e 25 mg tablet Take 1 tablet every day by oral route for 5 days. 09/23 completed Not Available Not Available Not Available monteluka st 10 mg tablet Take 1 tablet every day by oral route in the evening for 90 days. 11/30 completed per daughter she states she wants mom off this medicati on she has always had a runny nose and that she just dabs it with a kleenex and doesn't ever actually blow her nose. She states that she is okay with the nose spray, but wants the monteluk ast removed Not Available Not Available Not Available calcium 500 mg (as calcium carbonate 1,250 mg) chewable tablet Take 1 tablet 3 times a day by oral route as needed. 09/09 completed Not Available Not Available Not Available pravastat in 20 mg tablet TAKE 1 TABLET BY MOUTH ONCE DAILY active Not Available Not Available No t Available polyethyl bre glycol 3350 17 gram/dose oral powder MIX AND DRINK 1 CAPFUL (17 GRAMS) 8OZ OF WATER OR JUICE ONCE DAILY - HOLD WHEN STOOL IS LOOSE active Not Available Not Available No t Available fluticaso ne propionat e 50 mcg/actua tion nasal spray,eliza pension INSTILL 1 SPRAY IN EACH NOSTRIL TWICE DAILY active Not Available Not Available No t Available Unisom (doxylami ne) 25 mg tablet Take 1 tablet every day by oral route at bedtime. 09/09 completed Not Available Not Available Not Available cholecalc iferol (vitamin D3) 125 mcg (5,000 unit) capsule Take 1 capsule 3 times a week by oral route for 30 days. 12/18 completed Not Available Not Available Not Available loratadin e 10 mg tablet Take 1 tablet every day by oral route for 90 days. active Not Available Not Available No t Available oxycodone 5 mg tablet 09/07 completed Not Available Not Available Not Available ezetimibe 10 mg tablet Take 1 tablet every day by oral route. 07/07 completed Not Available Not Available Not Available sodium chloride 0.65 % nasal spray aerosol Take 2 sprays every day by nasal route as needed. 03/22 completed Not Available Not Available Not Available memantine 10 mg tablet TAKE 1 TABLET BY MOUTH TWICE DAILY active Not Available Not Available No t Available memantine 5 mg tablet Take 1 tablet orally daily x 7 days then BID 09/23 completed Not Available Not Available Not Available Boniva 150 mg tablet Take 1 tablet every month by oral route in the morning. 11/03 completed with a glass of water prior to food, do not lie down for 30 minutes Not Available Not Available Not Available multivita min no.51-stephen kimberlee fumarate 106.5 mg-folic acid 1 mg capsule Take 1 capsule every day by oral route. 03/22 completed Not Available Not Available Not Available ketoconaz ole 2 % topical gel APPLY TO THE AFFECTED AREA(S) BY TOPICAL ROUTE ONCE DAILY 07/08 completed Not Available Not Available Not Available saw palmetto 450 mg capsule Take 1 capsule every day by oral route. active Not Available Not Available No t Available levocetir izine 5 mg tablet Take 1 tablet every day by oral route in the evening for 90 days. active Not Available Not Available No t Available melatonin 5 mg tablet TAKE 1 TABLET BY MOUTH EVERYDAY AT BEDTIME active Not Available Not Available No t Available minoxidil 5 % topical foam 07/08 completed Not Available Not Available Not Available Citracal Plus Bone Density TAKE 2 TABLETS DAILY 09/09 completed Not Available Not Available Not Available Prolia 60 mg/mL subcutane ous syringe Take 1 ml subcutan eous q 6 months active Not Available Not Available No t Available EpiPen 2-Kenton 0.3 mg/0.3 mL injection , auto-inje ctor Take 0.3 mg SC/IM x1; may repeat dose x1 after 5-15min PRN for anaphyla xis 2022 active Not Available Not Available Not Avai lable lidocaine 5 % medicated patch and dimethico ne 5 % topical cream PLACE 2 PATCHES ON THE SKIN DAILY. REMOVE AND DISCARD PATCH WITHIN 12 HRS 03/22 completed Not Available Not Available Not Available Dry Eye Relief (propylen e glycol-pe g 400) 0.4 %-0.3 % eye gel drops ADMINIST ER 2 DROPS INTO AFFECTED EYE(S) 2 TIMES A DAY active Not Available Not Available No t Available Vitals Date Recorded Body height Body mass index (BMI) Body weight Heart rate Respiratory rate Oxygen saturation Oxygen saturation in Arterial blood by Pulse oximetry Body temperature Systolic blood pressure Diastolic blood pressure Provider Name and Address Organization Details Last Updated DateTime 3 162.56 cm 21.8 kg/m2 40371.2 3 g 86 /min 16 /min 98 % 98 % 98.7 [degF] 112 mm[Hg] 70 mm[Hg] Margi GOSS [facility] 3 10:57:26 Date Recorded Body height Body mass index (BMI) Body weight Heart rate Respiratory rate Oxygen saturation Oxygen saturation in Arterial blood by Pulse oximetry Body temperature Systolic blood pressure Diastolic blood pressure Provider Name and Address Organization Details Last Updated DateTime 3 162.56 cm 21.8 kg/m2 97334.2 3 g 97 /min 16 /min 97 % 97 % 97.7 [degF] 112 mm[Hg] 70 mm[Hg] Margi Johnathan [facility] 3 15:46:44 Date Recorded Body height Heart rate Respiratory rate Oxygen saturation Oxygen saturation in Arterial blood by Pulse oximetry Body temperature Systolic blood pressure Diastolic blood pressure Provider Name and Address Organization Details Last Updated DateTime 3 162.56 cm 84 /min 18 /min 94 % 94 % 97.5 [degF] 140 mm[Hg] 74 mm[Hg] Tyrese Amayawell [facility] 3 10:50:17 Date Recorded Body height Heart rate Respiratory rate Oxygen saturation Oxygen saturation in Arterial blood by Pulse oximetry Body temperature Systolic blood pressure Diastolic blood pressure Provider Name and Address Organization Details Last Updated DateTime 3 162.56 cm 90 /min 18 /min 97 % 97 % 97.1 [degF] 128 mm[Hg] 66 mm[Hg] Tyrese Amayawell [facility] 3 10:34:03 Date Recorded Body height Body mass index (BMI) Body weight Heart rate Respiratory rate Oxygen saturation Oxygen saturation in Arterial blood by Pulse oximetry Body temperature Systolic blood pressure Diastolic blood pressure Provider Name and Address Organization Details Last Updated DateTime 3 162.56 cm 22.7 kg/m2 44387.1 9 g 85 /min 18 /min 96 % 96 % 97 [degF] 102 mm[Hg] 72 mm[Hg] Tyrese Amayawell [facility] 3 10:34:37 Social History Question Answer Notes LastModified by Organizat ion Details LastModified Time Tobacco Smoking Status Former Smoker Dixie gold [facility] 09/07/2022 14:34:45 Do You Have An Advance Directive? Yes [email or web address] Information not available 09/07/2022 What Is Your Level Of Alcohol Consumption? None [email or web address] Information not available 09/07/2022 Are You Currently Sexually Active With Anyone Who Has Traveled (within The Last 12 Weeks) To A Zika-affected Area? No [email or web address] Information not available 09/07/2022 Are You Blind Or Do You Have Difficulty Seeing? Yes Astigmatism [email or web address] Information not available 09/07/2022 Is Blood Transfusion Acceptable In An Emergency? Yes [email or web address] Information not available 09/07/2022 What Is Your Level Of Caffeine Consumption? Moderate Coffee [email or web address] Information not available 09/07/2022 What Type Of Circuit Board Inspector Do You Use? None [email or web address] Information not available 09/07/2022 What Is Your Code Status? Full Code [email or web address] Information not available 09/07/2022 In The 14 Days Before Symptom Onset, Have You Had Close Contact With A Laboratory-confir med COVID-19 While That Case Was Ill? No [email or web address] Information not available 09/07/2022 In The 14 Days Before Symptom Onset, Have You Had Close Contact With A Person Who Is Under Investigation For COVID-19 While That Person Was Ill? No [email or web address] Information not available 09/07/2022 Have You Been To An Area Known To Be High Risk For COVID-19? No [email or web address] Information not available 09/07/2022 Are You Currently Employed? No [email or web address] Information not available 09/07/2022 Are You Deaf Or Do You Have Serious Difficulty Hearing? No [email or web address] Information not available 09/07/2022 What Type Of Diet Are You Following? REGULAR [email or web address] Information not available 09/07/2022 Have You Processed Blood Or Body Fluids From An Ebola Virus Disease Patient Without Appropriate PPE? No [email or web address] Information not available 09/07/2022 Do You Reside In Or Have You Traveled To An Area Where Ebola Virus Transmission Is Active? No [email or web address] Information not available 09/07/2022 What Is The Highest Grade Or Level Of School You Have Completed Or The Highest Degree You Have Received? [id number] [email or web address] Information not available 09/07/2022 Have There Been Any Changes To Your Family Or Social Situation? Yes [email or web address] Information no t available 09/07/2022 When Did You Quit Smoking? 16+yearssin celastcigar ette Information not available 09/07/2022 Are There Any Guns Present In Your Home? No [email or web address] Information not available 09/07/2022 Which Of Your Hands Is Dominant? Right Information not available 09/07/2022 Have You Recently Or Are You Planning To Travel To An Area With Zika Virus? No [email or web address] Information not available 09/07/2022 Do You Have A Medical Power Of Licensed Embalmer Supervisor? Yes [email or web address] Information not available 09/07/2022 What Was The Date Of Your Most Recent Tobacco Screening? 09/07/2022 [email or web address] Information not available 09/07/2022 How Many Children Do You Have? 2 [email or web address] Information not available 09/07/2022 What Is Your Current Pack Years? 10packyears [email or web address] Information not available 09/07/2022 Do You Have Any Pets? No [email or web address] Information not available 09/07/2022 What Is Your Relationship Status? Information not available 09/07/2022 Do You Use Your Seat Belt Or Car Seat Routinely? Yes [email or web address] Information not available 09/07/2022 Are You Sexually Active? No [email or web address] Information not available 09/07/2022 Do You Have Smoke And Carbon Monoxide Detectors In Your Home? Yes [email or web address] Information not available 09/07/2022 At What Age Did You Start Smoking Tobacco? 29 [email or web address] Information not available 09/07/2022 Are You Passively Exposed To Smoke? No [email or web address] Information no t available 09/07/2022 Do You Participate In Social Media? No [email or web address] Information not available 09/07/2022 Do You Feel Stressed (tense, Restless, Nervous, Or Anxious, Or Unable To Sleep At Night)? [id number] Anxious feugtbgsn82 Information not available 09/07/2022 Do You Use Any Illicit Or Recreational Drugs? No [email or web address] Information not available 09/07/2022 Do You Use Sunscreen Routinely? Yes [email or web address] Information not available 09/07/2022 How Many Years Have You Smoked Tobacco? 10 gpyieluxr55 Information not available 09/07/2022 Have You Recently Traveled Abroad? No Information not available 09/07/2022 Are You Currently In School? No Information not available 09/07/2022 Do You Have Any Dietary Restrictions? No [email or web address] Information not available 09/07/2022 Do You Or Have You Ever Used Any Other Forms Of Tobacco Or Nicotine? No [email or web address] Information not available 09/07/2022 Sex: Female Functional Status Question Answer Note LastModified by Organizat ion Details LastModified Time Do you have difficulty walking or climbing stairs? Yes okay walking, not goot with stairs [email or web address] Information not available 09/07/2022 Do you have transportation difficulties? Yes [email or web address] Information not available 09/07/2022 Are you able to walk? YESASSIST [email or web address] Information not available 09/07/2022 Do you have difficulty doing errands alone? Yes [email or web address] Information not available 09/07/2022 Are you able to care for yourself? No [email or web address] Information n ot available 09/07/2022 Do you have difficulty dressing or bathing? No [email or web address] Information not available 09/07/2022 What is your exercise level? None [email or web address] Information not available 09/07/2022 Mental Status Question Answer Note LastModified by Organization D etails LastModified Time Do you have difficulty concentrating, remembering or making decisions? Yes [email or web address] Information no t available 09/07/2022 Family History Relationship Description Onset Age of this Age Resolved Age Notes LastModified by Organization Details LastModified Time Mother Dementia [email or web address] Not availa ble 09/07/2022 14:13:47 Mother Diabetes mellitus [email or web address] Not available 08/22 14:18:56 Sister Dementia [email or web address] Not availa ble 09/07/2022 14:13:47 Sister Schizophreni a [email or web address] Not available 08/22 14:14:05 Maternal Uncle Dementia [email or web address] Not available 09/07 14:13:48 Brother Dementia Not avail able 09/07/2022 14:13:48 Brother Malignant tumor of prostate nfcxzyylz57 Not available 08/22 14:15:33 Brother Malignant neoplastic disease [email or web address] Not available 08/22 14:15:52 Brother Diabetes mellitus [email or web address] Not available 08/22 14:19:02 Father Malignant tumor of prostate [email or web address] Not available 08/22 14:15:33 Medical History Condition Response Allergies/Hayfever Y Osteoarthritis Y Alzheimers Disease Y Hospitalizations Y Vascular Diseases / Disorders Y Urinary Incontinence Y Depression Y Pneumonia Y Anemia Y Electrolyte Imbalances Y Rheumatic Diseases / Disorders Y Anxiety Disorder Y Diabetes Y Cataracts Y Endocrine Diseases / Disorders Y Chronic pain Y Gastrointestinal Diseases / Disorders Y Musculoskeletal Diseases / Disorders Y Hyperlipidemia Y Skin Diseases / Disorders Y Dementia Y Nicotine / Tobacco Dependence Y Vitamin deficiency Y Fractures Y Alcohol / Drug Abuse Y Hypertension Y Osteoporosis Y Nephrology Diseases/Disorders Y Gynecological HistoryNo gynecological history recorded. Obstetrics History GPAL:G 4 P 4 0 2 2 Type Value Full Term 4 Spontaneous 2 Living 2 Total 4 Immunizations Vaccine Type Date Status Provider Name and Address Organization Details Recorded Time COVID-19 vaccine, vector-nr, rS-Ad26, PF, 0.5 mL 10/28/2020 completed Dixie gold [facility] 09/07/2022 14:12:40 Pneumococcal conjugate PCV 13 03/09/2016 completed Carley gold [facility] 09/20/2022 16:46:53 pneumococcal polysaccharide PPV23 03/09/2016 completed Carley gold [facility] 09/20/2022 16:48:03 zoster live 09/22/2020 completed Carley gold [facility] 09/20/2022 16:49:47 Influenza, high-dose, quadrivalent, PF 07/08/2017 completed Carley gold [facility] 09/20/2022 16:54:02 Past Encounters Encounter ID Performer Location Encounter Start Date Encounter Closed Date Diagnosis/Indication Diagnosis SNOMED-CT Code Diagnosis ICD10 Code [id number] Jessica Dominguez, [employer]-BC, PMHNP-BC [facility] [address] [place] [address] 09/09/2022 13:52:20 09/09/2022 21:46:33 Screening for malignant neoplasm of colon 689663884 Z12.11 Advance care planning 71 9673821 Z71.89 Dementia w ith behavioral disturbance 5307746409 103 F03.918 Osteoporosis 75194183 M8 1.0 Recurrent major depression 37131001 F33.9 Osteoarthr itis of multiple joints 126278578 M15.9 Hypothyroidism 15546878 E03.9 Hyperlipidemia 05911721 E78.5 [id number] Jessica ClarosMartin Dominguez [facility], [facility] [address] [id number] 09/22/2022 06:36:20 09/23/2022 15:57:25 Dementia with behavioral disturbance 0659072576 103 F03.918 Osteoarthr itis of multiple joints 439552716 M15.9 Allergic r eaction to bee sting 404491724 T63.444S [id number] Jessica Murrieta Alberto [facility], [facility] [address] [id number] 4 10/20/2022 06:45:46 10/21/2022 21:00:37 Dementia with behavioral disturbance 1354212574 103 F03.918 At [facility] risk for falls 416739541 Z91.81 Allergic rhinitis 056138 04 J30.9 [id number] Jessica ClarosMartin Dominguez [facility], [facility] [address] [place] [address] 11/17/2022 05:59:18 11/17/2022 20:42:36 Dementia with behavioral disturbance 6363392535 103 F03.918 Allergic rhinitis 844959 04 J30.9 Colorectal cancer detected by DNA-based stool screening 718743794 R19.5 Adult heal th examination 946314317 Z00.01 Advance care planning 71 9023490 Z71.89 [id number] Jessica Dominguez [facility], [facility] [address] [place] [address] 12/15/2022 06:47:30 12/15/2022 16:09:30 Dementia of the Alzheimer type with behavioral disturbance 0246874621 101 G30.9 Hypothyroidism 28052383 E03.9 Hyperlipidemia 84771431 E78.5 Osteoporosis 35252531 M8 1.0 Colonoscopy declined 399 8959310 16090 Z53.20 [id number] Jessica Dominguez [facility], [facility] [address] [place] [address] 01/12/2023 06:57:33 01/13/2023 04:44:51 Dementia of the Alzheimer type with behavioral disturbance 5765314802 101 G30.9 Gastroesop hageal reflux disease without esophagitis 006204399 K21.9 Constipation 89796804 K5 9.00 [id number] Jessica Dominguez, [facility], [facility] [address] [place] [address] 03/09/2023 07:03:46 03/10/2023 11:19:39 Dementia of the Alzheimer type with behavioral disturbance 2495952886 101 G30.9 Osteoporosis 29596521 M8 1.0 Hypothyroidism 99136443 E03.9 Hyperlipidemia 81933748 E78.5 [id number] Jessica Dominguez, [facility], [facility] [address] [place] [address] 05/04/2023 08:08:19 05/05/2023 13:59:48 Dementia of the Alzheimer type with behavioral disturbance 2816619957 101 G30.9 Osteoporosis 35270319 M8 1.0 Hypothyroidism 85501526 E03.9 Hyperlipidemia 41168965 E78.5 [id number] Jessica Dominguez, [facility], [facility] [address] [place] [address] 06/28/2023 06:54:52 06/28/2023 12:43:42 Dementia of the Alzheimer type with behavioral disturbance 4990708124 101 G30.9 Osteoporosis 89413936 M8 1.0 Hypothyroidism 15884793 E03.9 Hyperlipidemia 48417388 E78.5 Allergic rhinitis 333489 04 J30.9 Health Concerns Section Related Observation LastModified by Organization Detai ls LastModified Time None Recorded Concern Status LastModified by Organization Details LastModified Time None Recorded Advance Directives Directive Y: Payers Encounter Date Sequence Insurance Name Policy Number Policy Aguirre Covered Member ID Aguirre Member ID Guarantor Name 12/15/2022 1 [employer] (MEDICARE REPLACEMENT PPO) [id number] Rayceal Grams [id number] Rayceal Grams 01/12/2023 1 [employer] (MEDICARE REPLACEMENT PPO) [id number] 1 Rayceal Grams [id number] Rayceal Grams 03/09/2023 1 [employer] (MEDICARE REPLACEMENT PPO) [id number] 1 Rayceal Grams [id number] Rayceal Grams 05/04/2023 1 [employer] (MEDICARE REPLACEMENT PPO) [id number] 1 Rayceal Grams [id number] Rayceal Grams 06/28/2023 1 [employer] (MEDICARE REPLACEMENT PPO) [id number] 1 Rayceal Grams [id number] Rayceal Grams Notes Date Note Type Note Provider Name and Address Organization Details Recorded Time 12/15/2022 text/html DementiaReported bystaff.Quality:short term memory loss; forgetting names or everyday words; difficulty with coordination Severity:mild Context:difficulty planning or organizing; sleep disturbance; personality changes; compliance with medications Associated Symptoms:no depression; no paranoia; no anxiety; no irritability or agitation; no weight loss; no incontinence; no wandering Hypothyroidism - Patient is on Levothyroxine. Compliant with medication. Denies any side effects like palpitations. Denies any fatigue, weight gain, cold intolerance, constipation, or dry skin. HLD - Compliant with statin. No side effects. Following a low cholesterol diet. osteoporosis - taking Prolia. Noted to have compression fxs. MO Ureña, [facility] [address] [address], [facility] 12/15/2022 11:48:56 01/12/2023 text/html DementiaReported livanaff.Quality:short term memory loss; forgetting names or everyday words; difficulty with coordination Severity:mild Context:difficulty planning or organizing; sleep disturbance; personality changes; compliance with medications Associated Symptoms:no depression; no paranoia; no anxiety; no irritability or agitation; no weight loss; no incontinence; no wandering GERD - Patient c/o heartburn/regurgitatio n. Denies cough, SOB, sore throat, changes of taste. No dysphagia. No CP. Having constipation and difficulties with having a BM. MO [facility] [address] [place], [address], [facility] 01/12/2023 18:00:49 03/09/2023 text/html DementiaReported bystaff.Quality:short term memory loss; forgetting names or everyday words; difficulty with coordination Severity:mild Context:difficulty planning or organizing; sleep disturbance; personality changes; compliance with medications Associated Symptoms:no depression; no paranoia; no anxiety; no irritability or agitation; no weight loss; no incontinence; no wandering Hypothyroidism - Patient is on Levothyroxine. Compliant with medication. Denies any side effects like palpitations. Denies any fatigue, weight gain, cold intolerance, constipation, or dry skin.HLD - Compliant with statin. No side effects.osteoporosis - taking medication. MO Ureña, JANA [address] [place], [address], [facility] 03/10/2023 07:39:45 05/04/2023 text/html DementiaReported bystaff.Quality:short term memory loss; forgetting names or everyday words; difficulty with coordination Severity:mild Context:difficulty planning or organizing; sleep disturbance; personality changes; compliance with medications Associated Symptoms:no depression; no paranoia; no anxiety; no irritability or agitation; no weight loss; no incontinence; no wandering Hypothyroidism - Patient is on Levothyroxine. Compliant with medication. Denies any side effects like palpitations. Denies any fatigue, weight gain, cold intolerance, constipation, or dry skin.HLD - Compliant with statin. No side effects.osteoporosis - taking medication. MO Ureña, MAURO [address] [place], [address], [facility] 05/05/2023 05:56:23 06/28/2023 text/html DementiaReported bystaff.Quality:short term memory loss; forgetting names or everyday words; difficulty with coordination Severity:mild Context:difficulty planning or organizing; sleep disturbance; personality changes; compliance with medications Associated Symptoms:no depression; no paranoia; no anxiety; no irritability or agitation; no weight loss; no incontinence; no wandering Hypothyroidism - Patient is on Levothyroxine. Compliant with medication. Denies any side effects like palpitations. Denies any fatigue, weight gain, cold intolerance, constipation, or dry skin.HLD - Compliant with statin. No side effects.osteoporosis - taking medication.Allergies - has been taking Flonase, Claritin which have not provided much relief. Continues to have runny nose and related sxs. Jessica Dominguez, [employer] WORK[employer]-BC, PMHNP-BC [address] [place], [address], [place] [facility] 06/28/2023 11:07:52 OBGyn Episode No OBEpisode recorded.
--- NOTE | 2024-08-01 00:26 | ADMIMU ---
This patient, Ilene Ugalde, was admitted to IMU status, and placed in Intensive Care Unit-10. Patient/family oriented to hospital policies and general routines including ID bracelet, bed and alarms, visiting hours, pain management, procedures, bathroom and other care routines, personal items, smoking policy, room service/diet, and visiting hours. Valuables list has been completed. Information on how to activate the Rapid Response Team has been discussed. Patient/Family are encouraged to report perceived risks to care and to ask questions if they do not understand what they are told or what they should do.
[2024-08-01 00:46] LABS: Anion Gap 12 mmol/L (4-12); Blood Urea Nitrogen 19 mg/dL (7-17); Calcium 9.9 mg/dL (8.4-10.2); Carbon Dioxide 18 mmol/L (22-30); Chloride 92 mmol/L (98-107); Estimated CRCL calculation 30 ml/min; Estimated Glomerular Filt Rate 48; Glucose 138 mg/dL (65-110); Potassium 3.8 mmol/L (3.4-5.0); Sodium 122 mmol/L (137-145)
--- NOTE | 2024-08-01 01:10 | PC.NURSE ---
Spoke with Dr. Iyer regarding current sodium level. Give 1L bolus of normal saline over 1 hour. Recheck BMP in AM
[2024-08-01] MEDS: SODIUM CHLORIDE 0.9% IV 1,000 ML 999 ML IV CONT (01:35)
--- NOTE | 2024-08-01 04:00 | PC.NURSE ---
Patient is currently Alert and Oriented x3. She currently refusing blood pressure being taken. She had previously taken off telemetry equipment, patient verbally aggressive with staff, cursing at staff. Patient willing to keep heart monitor on at this time. Patient in bed with Bed alarm on zone 2 as she is a fall risk and has previously fallen. All fall precautions in place.
[2024-08-01 08:47] LABS: Anion Gap 5 mmol/L (4-12); Blood Urea Nitrogen 14 mg/dL (7-17); Calcium 9.1 mg/dL (8.4-10.2); Carbon Dioxide 23 mmol/L (22-30); Chloride 95 mmol/L (98-107); Estimated CRCL calculation 40 ml/min; Estimated Glomerular Filt Rate > 60; Glucose 102 mg/dL (65-110); Potassium 4.2 mmol/L (3.4-5.0); Sodium 123 mmol/L (137-145)
[2024-08-01] MEDS: ACETAMINOPHEN 325 MG TABLET 650 MG PO ×2 (09:24→13:34)
[2024-08-01] MEDS: SODIUM CHLORIDE 0.9% IV 1,000 ML 100 ML IV CONT ×2 (09:25→19:21)
[2024-08-01 10:50] LABS: Hematocrit 34.3 % (37.0-47.0); Hemoglobin 11.9 g/dL (12.0-15.0); Mean Corpuscular HGB Conc 34.7 g/dl (32-36); Mean Corpuscular Hemoglobin 32.9 pg (26-34); Mean Corpuscular Volume 94.8 fl (80-100); Platelet Count Result 212 k/mm3 (150-375); Red Blood Count 3.62 M/mm3 (4.2-5.4); Red Cell Distribution Width 11.9 % (11.5-14.5); White Blood Count 6.6 K/mm3 (4.5-10.0)
[2024-08-01 11:28] LABS: Magnesium 1.3 mg/dL (1.6-2.3)
--- NOTE | 2024-08-01 13:30 | P.PNIM_ITS ---
Progress Note: A&P Assessment and Plan (1) Hyponatremia: Code(s): E87.1 - Hypo-osmolality and hyponatremia Status: Acute Assessment and Plan: Admit to IMU patient currently on 0.9 normal saline continue to monitor okay for 8-10 mEq increase every 24 hours Na 123 today will hold spironolactone (2) Dementia: Code(s): F03.90 - Unspecified dementia, unspecified severity, without behavioral disturbance, psychotic disturbance, mood disturbance, and anxiety Status: Acute Assessment and Plan: continue donepezil (3) Alzheimer disease: Code(s): G30.9 - Alzheimer's disease, unspecified; F02.80 - Dementia in other diseases classified elsewhere, unspecified severity, without behavioral disturbance, psychotic disturbance, mood disturbance, and anxiety Status: Acute Assessment and Plan: on donepezil (4) Multiple falls: Code(s): R29.6 - Repeated falls Status: Acute Assessment and Plan: PT OT consult likely from hyponatremia (5) Hyperkalemia: Code(s): E87.5 - Hyperkalemia Status: Acute Assessment and Plan: resolved likely secondary to spironolactone received breathing treatment continue to monitor Subjective Date/time seen: 08/01/24 13:30 Interval history: Patient comfortable at bedside and initially declined any lab draw or medications donte appeared to let up after i spoke to her repeat Na 123. continue monitoring Review of Systems Review of Systems: ROS unobtainable: Yes unobtainable due to mental status ( dementia) Neurologic: Reports confusion Psychiatric: Psychiatric: Reports confusion Exam Narrative: laying in a stretcher Const: General: comfortable, no acute distress, well developed, alert, awake, confusion and average body habitus Nutritional Appearance: average body habitus Orientation/consciousness: oriented to person, patient oriented x3 and confusion HENMT: Head: normal to inspection, normocephalic and atraumatic Ears: hearing grossly normal bilaterally Face/Nose/Sinus: normal facial exam Face and sinus: normal facial exam Eyes: General: appearance normal, both eyes and all related structures Pupils: Equal, round and reactive pupils present EOM: EOMs intact bilaterally Neck: Neck: full ROM, no lymphadenopathy and no JVD Thyroid: thyroid normal Lymphatic: no lymphadenopathy noted Resp: Effort & Inspection: normal respiratory effort and able to speak in complete sentences Auscultation: clear to auscultation bilaterally Cardio: Jugular venous distension: no JVD Rate: regular rate Rhythm: regular rhythm Heart sounds: S1 normal heart sound present and S2 normal heart sound present : General: Yes deferred Skin: Rashes: no rashes Wounds: no wounds Neuro: General: oriented to person, patient oriented x3, CN's II-XI intact bilaterally and confusion Cranial nerves: Yes CN's II-XII intact bilaterally and Yes Equal, round and reactive pupils present Cognition (Neuro): normal cognition Speech: normal speech Gait exam (Neuro): Normal gait present Motor exam (neuro): 5/5 motor strength present throughout Extrem: General: normal to inspection, full ROM, no joint enlargement and no pedal edema Objective Data Vital Signs Vital Signs: Vital Signs - 24 hr 07/31/24 17:58 07/31/24 20:16 07/31/24 20:21 Temperature 97.9 F Pulse Rate 88 78 Respiratory Rate 16 14 Blood Pressure 98/64 L 132/63 Pulse Oximetry 98 100 99 Oxygen Delivery Room Air Room Air 07/31/24 21:26 07/31/24 21:57 07/31/24 22:01 Temperature Pulse Rate 81 102 H 113 H Respiratory Rate 13 17 20 Blood Pressure 146/60 H 134/69 Pulse Oximetry 100 100 Oxygen Delivery 07/31/24 22:25 07/31/24 23:46 08/01/24 00:00 Temperature Pulse Rate 100 110 H 105 H Respiratory Rate 14 18 15 Blood Pressure 127/61 Pulse Oximetry 100 100 Oxygen Delivery Room Air 08/01/24 00:26 08/01/24 00:27 08/01/24 02:00 Temperature Pulse Rate 106 H 105 H 99 Respiratory Rate 15 Blood Pressure 113/65 Pulse Oximetry 100 Oxygen Delivery 08/01/24 04:00 08/01/24 04:00 08/01/24 04:00 Temperature 98.2 F Pulse Rate 88 88 90 Respiratory Rate 17 16 Blood Pressure Pulse Oximetry Oxygen Delivery Room Air 08/01/24 06:00 08/01/24 08:00 08/01/24 12:00 Temperature Pulse Rate 97 Respiratory Rate Blood Pressure Pulse Oximetry 96 Oxygen Delivery Room Air Room Air 08/01/24 12:00 Temperature 98.4 F Pulse Rate 83 Respiratory Rate 15 Blood Pressure 108/65 Pulse Oximetry 98 Oxygen Delivery Intake/Output Intake/Output: Intake & Output 07/29/24 07/30/24 07/31/24 08/01/24 23:59 23:59 23:59 23:59 Intake Total 1000 1340 Output Total 100 1000 Balance 900 340 Meds/Results Medications: Active Medications Generic Name Dose Route Start Last Admin Trade Name Freq PRN Reason Stop Dose Admin Acetaminophen 650 mg 07/31/24 21:19 08/01/24 09:24 Acetaminophen 325 Mg Tablet PO 650 mg Q4H PRN Administration Mild Pain (1-3) or Fever Sodium Chloride 1,000 mls @ 100 mls/hr 08/01/24 08:10 08/01/24 09:25 Normal Saline Iv IV CONT 100 mls/hr .Q10H TEO Administration Ondansetron HCl 4 mg 07/31/24 21:19 Ondansetron Inj 4 Mg/2 Ml Vial IV PUSH Q4H PRN Nausea Radiology Results: ITS Impressions Head CT 07/31/24 18:24 IMPRESSION: No acute intracranial process. Chest X-Ray 07/31/24 19:14 IMPRESSION: No acute cardiopulmonary process. Pelvis X-Ray 07/31/24 19:18 IMPRESSION: No acute osseous finding in the pelvis. Labs Labs: Laboratory Results - last 24 hr 07/31/24 07/31/24 07/31/24 20:18 20:48 22:01 WBC 11.7 H RBC 4.16 L Hgb 13.7 Hct 38.4 MCV 92.3 MCH 32.9 MCHC 35.7 RDW 11.7 Plt Count 227 MPV 8.4 Immature Gran % (Auto) 0.3 Neut % (Auto) 87.0 H Lymph % (Auto) 4.[address] [place] % (Auto) 7.7 Eos % (Auto) 0.3 Baso % (Auto) 0.4 Lymph # (Auto) 0.[address] [place] # (Auto) 0.9 H Eos # (Auto) 0.0 Baso # (Auto) 0.1 Abs Immat Gran (auto) 0.04 H Absolute Neuts (auto) 10.2 H Absolute Nucleated RBC 0.000 Nucleated RBC % 0.0 PT 12.2 INR 0.9 APTT 23.8 Sodium 117 L* Potassium 5.6 H Chloride 86 L Carbon Dioxide 22 Anion Gap 9 BUN 23 H D Creatinine 1.20 H Estim Creat Clear Calc 36 Estimated GFR 44 L Glucose 100 POC Capillary Glucose 106 H Calcium 10.1 Magnesium 1.5 L Total Bilirubin 0.8 AST 31 ALT 17 Alkaline Phosphatase 55 Total Protein 7.0 Albumin 4.6 Urine Color Yellow Urine Appearance Clear Urine pH 5.0 Ur Specific [place] 1.033 Urine Protein Trace Urine Glucose (UA) Negative Urine Ketones 2+ H Ur Blood (Man) Negative Urine Nitrate Negative Urine Bilirubin Negative Urine Urobilinogen 1.0 Add Ur Microanalysis Reviewed Leukocyte Esterase Rfl Negative Urine RBC 0-2 Urine WBC 0-5 Ur Squamous Epith Cells None seen Urine Bacteria None seen Urine Casts 6-10 Hyaline Casts Present Ur Random Sodium 86 08/01/24 08/01/24 08/01/24 00:14 08:08 08:18 WBC 6.6 RBC 3.62 L Hgb 11.9 L Hct 34.3 L MCV 94.8 MCH 32.9 MCHC 34.7 RDW 11.9 Plt Count 212 MPV 9.0 Immature Gran % (Auto) Neut % (Auto) Lymph % (Auto) [place] % (Auto) Eos % (Auto) Baso % (Auto) Lymph # (Auto) [place] # (Auto) Eos # (Auto) Baso # (Auto) Abs Immat Gran (auto) Absolute Neuts (auto) Absolute Nucleated RBC Nucleated RBC % PT INR APTT Sodium 122 L 123 L Potassium 3.8 4.2 Chloride 92 L 95 L Carbon Dioxide 18 L 23 Anion Gap 12 5 BUN 19 H 14 D Creatinine 1.10 H 0.80 Estim Creat Clear Calc 30 40 Estimated GFR 48 L > 60 Glucose 138 H 102 POC Capillary Glucose Calcium 9.9 9.1 Magnesium 1.3 L Total Bilirubin AST ALT Alkaline Phosphatase Total Protein Albumin Urine Color Urine Appearance Urine pH Ur Specific [place] Urine Protein Urine Glucose (UA) Urine Ketones Ur Blood (Man) Urine Nitrate Urine Bilirubin Urine Urobilinogen Add Ur Microanalysis Leukocyte Esterase Rfl Urine RBC Urine WBC Ur Squamous Epith Cells Urine Bacteria Urine Casts Hyaline Casts Ur Random Sodium
[2024-08-01 14:21] LABS: Anion Gap 1 mmol/L (4-12); Blood Urea Nitrogen 12 mg/dL (7-17); Calcium 8.4 mg/dL (8.4-10.2); Carbon Dioxide 25 mmol/L (22-30); Chloride 96 mmol/L (98-107); Estimated CRCL calculation 40 ml/min; Estimated Glomerular Filt Rate > 60; Glucose 98 mg/dL (65-110); Potassium 4.7 mmol/L (3.4-5.0); Sodium 122 mmol/L (137-145)
[2024-08-01] MEDS: MEMANTINE 10 MG TABLET PO (17:18)
[2024-08-01] MEDS: DONEPEZIL HCL 10 MG TABLET PO (20:14)
[2024-08-01] MEDS: MELATONIN 5 MG TABLET PO (20:14)
--- NOTE | 2024-08-01 20:49 | PC.NURSE ---
This patient, Ilene Ugalde, was transferred to [facility] via wheelchair without issue on 08/01/24 at 2040. Personal belongings sent with patient. Family with patient during transfer. Report given to MONROE Lee. Appropriate documentation sent with patient.
[2024-08-01] MEDS: ARTIFICIAL TEARS OPHTH SOLN 15 ML BOTTLE 2 DROP EACH EYE (22:01)
[2024-08-02] VITALS (10 sets, daily range): BP systolic 100–124; BP diastolic 46–55; PULSE 68–948; RESP 12–20; TEMP 36.6–37.2; O2SAT 95–100
[2024-08-02 04:55] LABS: Basophils Percent Auto 0.6 % (0.2-1.2); Eosinophils Absolute Auto 0.1 K/mm3 (0-0.3); Eosinophils Percent Auto 1.5 % (0-4.4); Hematocrit 31.7 % (37.0-47.0); Hemoglobin 10.9 g/dL (12.0-15.0); Immature Granulocyte Absolute 0.02 K/mm3 (0.00-0.031); Immature Granulocyte Percent A 0.3 % (0-0.5); Lymphocytes Absolute Auto 0.56 K/mm3 (0.9-3.2); Lymphocytes Percent Auto 8.2 % (18.3-44.2); Mean Corpuscular HGB Conc 34.4 g/dl (32-36); Mean Corpuscular Hemoglobin 32.8 pg (26-34); Mean Corpuscular Volume 95.5 fl (80-100); Mean Platelet Volume 8.9 fl (7.4-10.4); Monocytes Absolute Auto 0.6 K/mm3 (0.1-0.6); Monocytes Percent Auto 9.4 % (2.6-8.5); Neutrophils Absolute Auto 5.4 K/mm3 (1.3-6.7); Platelet Count Result 173 k/mm3 (150-375); Red Blood Count 3.32 M/mm3 (4.2-5.4); Red Cell Distribution Width 11.9 % (11.5-14.5); White Blood Count 6.8 K/mm3 (4.5-10.0)
[2024-08-02 05:08] LABS: Alanine Aminotransferase 13 U/L (6-35); Albumin Level 3.2 g/dL (3.5-5.1); Alkaline Phosphatase 45 U/L (38-126); Anion Gap 5 mmol/L (4-12); Aspartate Amino Transferase 21 U/L (14-36); Bilirubin,Total 0.7 mg/dL (0.2-1.3); Blood Urea Nitrogen 7 mg/dL (7-17); Calcium 8.2 mg/dL (8.4-10.2); Carbon Dioxide 21 mmol/L (22-30); Chloride 99 mmol/L (98-107); Estimated CRCL calculation 45 ml/min; Estimated Glomerular Filt Rate > 60; Glucose 77 mg/dL (65-110); Magnesium 1.5 mg/dL (1.6-2.3); Sodium 125 mmol/L (137-145)
[2024-08-02] MEDS: MEMANTINE 10 MG TABLET PO ×2 (09:37→16:12)
[2024-08-02] MEDS: LEVOTHYROXINE SODIUM 50 MCG TABLET PO (09:37)
[2024-08-02] MEDS: MAGNESIUM SULF 2 GM/WATER 50ML 2 GM/50 ML BAG IVPB (09:55)
[2024-08-02 10:55] LABS: Iron 112 ug/dL (37-170)
[2024-08-02 11:04] LABS: Percent Iron Saturation 38 % (20-50)
[2024-08-02 12:05] LABS: Anion Gap 2 mmol/L (4-12); Blood Urea Nitrogen 8 mg/dL (7-17); Calcium 8.2 mg/dL (8.4-10.2); Carbon Dioxide 25 mmol/L (22-30); Chloride 99 mmol/L (98-107); Estimated CRCL calculation 45 ml/min; Estimated Glomerular Filt Rate > 60; Glucose 93 mg/dL (65-110); Potassium 4.3 mmol/L (3.4-5.0); Sodium 126 mmol/L (137-145)
[2024-08-02 14:44] LABS: Osmolality, Urine 533 mOsm/kg (50-1200)
[2024-08-02] MEDS: ACETAMINOPHEN 325 MG TABLET 650 MG PO ×2 (16:12→20:39)
--- NOTE | 2024-08-02 16:28 | PM.IMPN ---
Progress Note: A&P Assessment and Plan (1) Hyponatremia: Code(s): E87.1 - Hypo-osmolality and hyponatremia Status: Acute Assessment and Plan: Admit to IMU patient currently on 0.9 normal saline continue to monitor okay for 8-10 mEq increase every 24 hours Na 126 today will hold spironolactone (2) Dementia: Code(s): F03.90 - Unspecified dementia, unspecified severity, without behavioral disturbance, psychotic disturbance, mood disturbance, and anxiety Status: Acute Assessment and Plan: continue donepezil (3) Alzheimer disease: Code(s): G30.9 - Alzheimer's disease, unspecified; F02.80 - Dementia in other diseases classified elsewhere, unspecified severity, without behavioral disturbance, psychotic disturbance, mood disturbance, and anxiety Status: Acute Assessment and Plan: on donepezil (4) Multiple falls: Code(s): R29.6 - Repeated falls Status: Acute Assessment and Plan: PT OT consult likely from hyponatremia (5) Hyperkalemia: Code(s): E87.5 - Hyperkalemia Status: Acute Assessment and Plan: resolved likely secondary to spironolactone received breathing treatment continue to monitor Plan DVT prophylaxis subQ Lovenox. Subjective Date/time seen: 08/02/24 16:28 Interval history: Patient comfortable at bedside Review of Systems Review of Systems: ROS unobtainable: Yes unobtainable due to mental status ( dementia) Neurologic: Reports confusion Psychiatric: Psychiatric: Reports confusion Exam Narrative: laying in a stretcher Const: General: comfortable, no acute distress, well developed, alert, awake, confusion and average body habitus Nutritional Appearance: average body habitus Orientation/consciousness: oriented to person, patient oriented x3 and confusion HENMT: Head: normal to inspection, normocephalic and atraumatic Ears: hearing grossly normal bilaterally Face/Nose/Sinus: normal facial exam Face and sinus: normal facial exam Eyes: General: appearance normal, both eyes and all related structures Pupils: Equal, round and reactive pupils present EOM: EOMs intact bilaterally Neck: Neck: full ROM, no lymphadenopathy and no JVD Thyroid: thyroid normal Lymphatic: no lymphadenopathy noted Resp: Effort & Inspection: normal respiratory effort and able to speak in complete sentences Auscultation: clear to auscultation bilaterally Cardio: Jugular venous distension: no JVD Rate: regular rate Rhythm: regular rhythm Heart sounds: S1 normal heart sound present and S2 normal heart sound present : General: Yes deferred Skin: Rashes: no rashes Wounds: no wounds Neuro: General: oriented to person, patient oriented x3, CN's II-XI intact bilaterally and confusion Cranial nerves: Yes CN's II-XII intact bilaterally and Yes Equal, round and reactive pupils present Cognition (Neuro): normal cognition Speech: normal speech Gait exam (Neuro): Normal gait present Motor exam (neuro): 5/5 motor strength present throughout Extrem: General: normal to inspection, full ROM, no joint enlargement and no pedal edema Objective Data Vital Signs Vital Signs: Vital Signs - 24 hr 08/01/24 18:00 08/01/24 20:00 08/01/24 20:00 Temperature Pulse Rate 92 92 75 Respiratory Rate 16 Blood Pressure Pulse Oximetry 98 Oxygen Delivery Room Air 08/01/24 20:45 08/01/24 21:00 08/01/24 22:00 Temperature 98.1 F Pulse Rate 87 71 73 Respiratory Rate 14 18 Blood Pressure 102/47 L Pulse Oximetry 97 98 Oxygen Delivery 08/01/24 23:48 08/01/24 23:53 08/02/24 00:00 Temperature 97.8 F Pulse Rate 71 73 Respiratory Rate 18 Blood Pressure 115/67 Pulse Oximetry 98 Oxygen Delivery Room Air 08/02/24 02:00 08/02/24 04:00 08/02/24 04:00 Temperature 97.8 F Pulse Rate 73 68 Respiratory Rate 18 Blood Pressure 124/52 L Pulse Oximetry 95 Oxygen Delivery Room Air 08/02/24 04:00 08/02/24 05:52 08/02/24 08:00 Temperature 98.1 F Pulse Rate 72 72 71 Respiratory Rate 20 Blood Pressure 101/49 L Pulse Oximetry 98 Oxygen Delivery 08/02/24 08:00 08/02/24 11:54 Temperature 98.5 F Pulse Rate 77 87 Respiratory Rate 16 Blood Pressure 112/55 L Pulse Oximetry 100 Oxygen Delivery Intake/Output Intake/Output: Intake & Output 07/30/24 07/31/24 08/01/24 08/02/24 23:59 23:59 23:59 23:59 Intake Total 1000 2933.3 480 Output Total 100 1400 300 Balance 900 1533.3 180 Meds/Results Medications: Active Medications Generic Name Dose Route Start Last Admin Trade Name Peeweeq PRN Reason Stop Dose Admin Acetaminophen 650 mg 07/31/24 21:19 08/02/24 16:12 Acetaminophen 325 Mg Tablet PO 650 mg Q4H PRN Administration Mild Pain (1-3) or Fever Artificial Tears 2 drop 08/01/24 13:41 08/01/24 22:01 Artificial Tears Ophth Soln 15 Ml Bottle EACH EYE 2 drop TID PRN Administration dryness Donepezil HCl 10 mg 08/01/24 21:00 08/01/24 20:14 Donepezil Hcl 10 Mg Tablet PO 10 mg HS TEO Administration Fluticasone Propionate 1 spray 08/01/24 21:00 08/02/24 09:40 Fluticasone Propionate 0.05% Na Spr 16 Gm Btl (*Bkc) NASAL Not Given Q12HR TEO Sodium Chloride 1,000 mls @ 100 mls/hr 08/01/24 08:10 08/01/24 19:21 Normal Saline Iv IV CONT 100 mls/hr .Q10H TEO Administration Levothyroxine Sodium 50 mcg 08/02/24 06:30 08/02/24 09:37 Levothyroxine Sodium 50 Mcg Tablet PO 50 mcg DAILY@0630 TEO Administration Melatonin 5 mg 08/01/24 21:00 08/01/24 20:14 Melatonin 5 Mg Tablet PO 5 mg HS TEO Administration Memantine 10 mg 08/01/24 17:00 08/02/24 16:12 Memantine 10 Mg Tablet PO 10 mg BID TEO Administration Miconazole Nitrate 1 applic 08/02/24 09:00 08/02/24 09:40 Miconazole Nitrate 2% Cream 30 Gm Tube TOPICAL Not Given DAILY TEO Ondansetron HCl 4 mg 07/31/24 21:19 Ondansetron Inj 4 Mg/2 Ml Vial IV PUSH Q4H PRN Nausea Radiology Results: ITS Impressions Head CT 07/31/24 18:24 IMPRESSION: No acute intracranial process. Chest X-Ray 07/31/24 19:14 IMPRESSION: No acute cardiopulmonary process. Pelvis X-Ray 07/31/24 19:18 IMPRESSION: No acute osseous finding in the pelvis. Labs Labs: Laboratory Results - last 24 hr 07/31/24 07/31/24 08/02/24 20:18 20:48 04:18 WBC 6.8 RBC 3.32 L Hgb 10.9 L Hct 31.7 L MCV 95.5 MCH 32.8 MCHC 34.4 RDW 11.9 Plt Count 173 MPV 8.9 Immature Gran % (Auto) 0.3 Neut % (Auto) 80.0 H Lymph % (Auto) 8.2 L [place] % (Auto) 9.4 H Eos % (Auto) 1.5 Baso % (Auto) 0.6 Lymph # (Auto) 0.56 L [place] # (Auto) 0.6 Eos # (Auto) 0.1 Baso # (Auto) 0.0 Abs Immat Gran (auto) 0.02 Absolute Neuts (auto) 5.4 Absolute Nucleated RBC 0.000 Nucleated RBC % 0.0 Sodium 125 L Potassium 4.0 Chloride 99 Carbon Dioxide 21 L Anion Gap 5 BUN 7 D Creatinine 0.70 Estim Creat Clear Calc 45 Estimated GFR > 60 Glucose 77 Serum Osmolality 258 L Calcium 8.2 L Magnesium 1.5 L Iron 112 TIBC 293 % Saturation 38 Ferritin 239.00 Total Bilirubin 0.7 AST 21 ALT 13 Alkaline Phosphatase 45 Total Protein 5.0 L Albumin 3.2 L Urine Osmolality 533 08/02/24 11:51 WBC RBC Hgb Hct MCV MCH MCHC RDW Plt Count MPV Immature Gran % (Auto) Neut % (Auto) Lymph % (Auto) [place] % (Auto) Eos % (Auto) Baso % (Auto) Lymph # (Auto) [place] # (Auto) Eos # (Auto) Baso # (Auto) Abs Immat Gran (auto) Absolute Neuts (auto) Absolute Nucleated RBC Nucleated RBC % Sodium 126 L Potassium 4.3 Chloride 99 Carbon Dioxide 25 Anion Gap 2 L BUN 8 Creatinine 0.70 Estim Creat Clear Calc 45 Estimated GFR > 60 Glucose 93 Serum Osmolality Calcium 8.2 L Magnesium Iron TIBC % Saturation Ferritin Total Bilirubin AST ALT Alkaline Phosphatase Total Protein Albumin Urine Osmolality
[2024-08-02] MEDS: SODIUM CHLORIDE 0.9% IV 1,000 ML 100 ML IV CONT (17:00)
[2024-08-02] MEDS: MELATONIN 5 MG TABLET PO (20:31)
[2024-08-02] MEDS: DONEPEZIL HCL 10 MG TABLET PO (20:31)
[2024-08-03] MEDS: SODIUM CHLORIDE 0.9% IV 1,000 ML 100 ML IV CONT (03:00)
[2024-08-03] MEDS: LEVOTHYROXINE SODIUM 50 MCG TABLET PO (05:37)
[2024-08-03 05:49] VITALS: BP 108/71; PULSE 77; RESP 16; TEMP 36.6; O2SAT 96
[2024-08-03 06:33] LABS: Hematocrit 36.3 % (37.0-47.0); Hemoglobin 12.5 g/dL (12.0-15.0); Mean Corpuscular HGB Conc 34.4 g/dl (32-36); Mean Corpuscular Hemoglobin 33.2 pg (26-34); Mean Corpuscular Volume 96.3 fl (80-100); Mean Platelet Volume 8.8 fl (7.4-10.4); Platelet Count Result 195 k/mm3 (150-375); Red Blood Count 3.77 M/mm3 (4.2-5.4); Red Cell Distribution Width 12.2 % (11.5-14.5); White Blood Count 7.1 K/mm3 (4.5-10.0)
[2024-08-03 06:43] LABS: Anion Gap 2 mmol/L (4-12); Blood Urea Nitrogen 6 mg/dL (7-17); Calcium 8.6 mg/dL (8.4-10.2); Carbon Dioxide 27 mmol/L (22-30); Chloride 97 mmol/L (98-107); Estimated CRCL calculation 46 ml/min; Estimated Glomerular Filt Rate > 60; Glucose 91 mg/dL (65-110); Potassium 4.1 mmol/L (3.4-5.0); Sodium 126 mmol/L (137-145)
[2024-08-03] MEDS: MEMANTINE 10 MG TABLET PO (09:30)
[2024-08-03 14:00] VITALS: BP 97/52; PULSE 87; RESP 15; TEMP 36.4; O2SAT 100
--- NOTE | 2024-08-03 14:02 | P.DS_ITS ---
DS: Admitting Diagnosis Discharge Date 08/03/24 Admitting Diagnosis generalized weakness DS: Discharge Diagnosis Discharge Diagnosis (1) Hyponatremia: Code(s): E87.1 - Hypo-osmolality and hyponatremia Status: Acute DS: Summary Hospital Course Hospital Course: This is a 74-year-old female, with past medical history significant for chronic kidney disease, hypertension, osteoporosis, compression vertebrae fracture, Alzheimer's dementia, patient resides at assisted living facility, uses a rolling walker and a cane as assisting device for ambulation. Was noted to be short feeling her gait and to be weak daughter was called and advised to bring her to the hospital preliminary workup was significant for sodium 117. Patient has been admitted for further evaluation management and treatment. patient was started on IVF and sodium gradually improved to 126. However patient was not eating and discussion with family at bedside this morning, revealed patient has not been eating weeks prior to admission. Patient has Dementia and family declined tube feeding and decided to discuss amongst themselves, they decided to transition patient to hospice care. Patient was discharged to hospice care at a facility. Continue follow up with hospice care. Time Spent with Patient Time attestation: Total time spent providing and/or coordinating discharge services: DS: Data Data Completed and Pending Labs on day of discharge: Labs from last 24 hours 08/03/24 07/31/24 07/31/24 06:27 20:48 20:18 WBC 7.1 RBC 3.77 L Hgb 12.5 Hct 36.3 L MCV 96.3 MCH 33.2 MCHC 34.4 RDW 12.2 Plt Count 195 MPV 8.8 Sodium 126 L Potassium 4.1 Chloride 97 L Carbon Dioxide 27 Anion Gap 2 L BUN 6 L Creatinine 0.70 Estim Creat Clear Calc 46 Estimated GFR > 60 Glucose 91 Serum Osmolality 258 L Calcium 8.6 TSH (Reflex) 0.760 Urine Osmolality 533 Discharge Plan Discharge Attending physician on discharge: Thomas Henry Discharging Clinician: Thomas Henry Anticipated Discharge Date/Time: 08/03/24 13:54 Patient Disposition: Hospice - Medical Facility Activity: as tolerated Diet: as tolerated Patient Instructions: Fall Prevention for Older Adults (GEN) Patient Language: Indonesian Stand Alone Forms: General Discharge Information Follow-up/Referrals: Emmanuelle,Martha [Other] (F/u with PCP in 3-5 days ) Discharge Medications: Continued donepezil 10 mg tablet 10 mg PO HS spironolactone 100 mg tablet 100 mg PO DAILY levothyroxine 50 mcg tablet 50 mcg PO DAILY calcium carbonate 500 mg calcium (1,250 mg) Tablet,Chewable 500 mg PO BID [place] Nasal 0.65 % Aerosol,[place] 2 spray INTRANASAL Q2H PRN (Reason: dryness) artificial tears solution Drops 2 drp OPHTHALMIC (EYE) TID PRN (Reason: dryness) melatonin 5 mg capsule 5 mg PO HS Qty: 7 0RF fluticasone propionate 50 mcg/actuation spray,suspension 1 spray INTRANASAL Q12H L.acid,ken-B.anim,bifid,infan [[employer] [place] Women Probiotic] 1 cap PO DAILY memantine 10 mg tablet 10 mg PO BID miconazole-tolnaftate 2-1 % kit 1 ea topical DAILY Rx Instructions: Miconazole 2% topical cream; apply to affected area omeprazole 40 mg capsule,delayed release(DR/EC) 40 mg PO DAILY PRN (Reason: blister) saw palmetto 450 mg capsule 450 mg PO DAILY Rx Instructions: give with food (meal/snack) sennosides-docusate sodium [Senna-Time S] 8.6-50 mg tablet 1 tab-cap PO HS Rx Instructions: Hold for diarrhea acetaminophen [Acetaminophen Extra Strength] 500 mg tablet 1,300 mg PO .q8 PRN (Reason: pain) Rx Instructions: Continue scheduled acetaminophen for the next 1-2 weeks, then consider changing to PRN if pain is controlled. epinephrine 0.3 mg/0.3 mL auto-injector 0.3 mg IM .COMPLEX PRN (Reason: anaphylaxis) Rx Instructions: 0.3 mg intramuscularly as needed PRN; As needed *May repeat dose after 5-15 minutes x1 dose* polyethylene glycol 3350 17 gram/dose powder 17 g PO DAILY PRN (Reason: constipation) Date of admission: 07/31/24 21:20 Primary Care Provider: EmmanuelleMartha Admitting Provider: Celeste Iyer V. Attending physician on admission: Celeste Iyer V. Condition: Stable
[2024-08-08 13:48] LABS: Soluble Transferrin Receptor 0.54 mg/L (0.76-1.76)
== END 2024-08-03 15:25 | disposition hospice, inpatient (51) | DRG 641 ==
LOC: ANHED 20:41 → ANHICU 23:59 → ANHIMU 08-02 13:02 → ANH3MEDSUR 08-03 10:02 → ANHICU 08-06 15:46 → ANHIMU 08-06 15:46
PROVIDERS: Physician Assistant; Admitting Provider Internal Medicine; Emergency Provider Student in an Organized Health Care Education/Training Program; Visit Provider Internal Medicine
DX: E87.1 Hypo-osmolality and hyponatremia (principal); N17.9 Acute kidney failure, unspecified; F02.84 Dementia in other diseases classified elsewhere, unspecified severity, with anxiety; E87.5 Hyperkalemia; E03.9 Hypothyroidism, unspecified; G30.9 Alzheimer's disease, unspecified; G89.29 Other chronic pain; R29.6 Repeated falls; F32.9 Major depressive disorder, single episode, unspecified; I13.10 Hypertensive heart and chronic kidney disease without heart failure, with stage 1 through stage 4 chronic kidney disease, or unspecified chronic kidney disease; N18.9 Chronic kidney disease, unspecified; M81.0 Age-related osteoporosis without current pathological fracture; Z51.5 Encounter for palliative care
CPT/HCPCS: 36415; 70450; 71046; 72170; 80048; 80053; 81001; 82728; 82948; 83540; 83550; 83735; 83930; 83935; 84238; 84300; 84443; 85025; 85027; 85610; 85730; 93005; 94640; 99285; A9270; J0612; J1650; J1815; J3475; J7030